=== PATIENT | female | born 1945 | race Caucasian/White ===

== ENCOUNTER 2016-06-09 16:38 | Inpatient (IN) | payer MEDICARE ==
[2016-06-09] VITALS (9 sets, daily range): BP systolic 114–135; BP diastolic 57–70; PULSE 95–136; RESP 10–16; TEMP 97–97.4; O2SAT 100
[~2016-06-09] VITALS: Ht 165.1 cm; Wt 90.5 kg
[2016-06-09] MEDS ORDERED: SODIUM CHLOR 0.9% 1000 ML INJ 1,000 ML IV ONE ×3 (17:00)
[2016-06-09] MEDS ORDERED: methylPREDNISolone SOD SUCC 125 MG/2 ML VIAL IV ONE (17:00)
[2016-06-09] MEDS ORDERED: SODIUM CHLORIDE 0.9% FLUSH 5 ML FLUSH IVF PRN ×2 (17:00→19:15)
[2016-06-09] MEDS ORDERED: AZITHROMYCIN INJ 500 MG in SODIUM CHLOR 0.9% 250 ML INJ 250 ML IV ONE (17:00)
[2016-06-09] MEDS ORDERED: cefTRIAXone INJ 2,000 MG in SODIUM CHLORIDE 0.9% INJ 100 ML IV ONE (17:00)
[2016-06-09] MEDS: RESP: ALBUTEROL 2.5 MG/IPRATROPIUM 0.5 MG NEB (SCH) INH ×2 (17:16→18:03)
--- NOTE | 2016-06-09 17:23 | RADHPO ---
EXAM DATE/TIME: 06/09/2016 16:54 [facility] COMPARISON: No previous studies available for comparison. INDICATIONS : ET tube placement. MEDICAL HISTORY : None. SURGICAL HISTORY : None. ENCOUNTER: Initial ACUITY: 1 day PAIN SCORE: Non-responsive. LOCATION: Bilateral upper chest FINDINGS: There is a large right pneumothorax. The heart appears shifted to the left although the patient is mi ldly rotated towards the left. The patient is intubated with ET tube in good position. There is areas of increased density like a related to calcium in the mid and lower midline chest. Clips are seen in the right axillary region. CONCLUSION: Large right pneumothorax. This information was relayed to by telephone. Gwyn Roque MD on June 09, 2016 at 17:17 Board Certified Radiologist. This report was verified electronically.
[2016-06-09] MEDS ORDERED: PROPOFOL 1000 MG/100 ML INJ 100 ML ONE (17:32)
[2016-06-09] MEDS ORDERED: ETOMIDATE 20 MG/10 ML VIAL IV PUSH ONE (17:45)
[2016-06-09] MEDS ORDERED: PROPOFOL 1000 MG/100 ML BTL IV PRN (17:45)
[2016-06-09] MEDS ORDERED: LIDOCAINE 1%/EPINEPHrine 1:100,000 SOLN 20 ML VIAL INFIL ONE (17:45)
--- NOTE | 2016-06-09 18:13 | PD ---
HPI . Respiratory distress Chief Complaint: Respiratory Distress Time Seen by Provider: 16:47 Travel History International Travel<30 days: No Contact w/Intl Traveler<30days: No Traveled to known affect area: No History of Present Illness HPI The patient is unconscious and unable to give any history. She reports that she was awake and alert on their arrival on the scene. She reported some cold symptoms with a productive cough. She had the acute onset of respiratory distress about an hour prior to calling 911. EMS reports that she initially was "very tight." They gave her a neb. Patient started to give her another neb when she became unresponsive. They had also tried CPAP before she became unresponsive. They then commenced to bagging. PFSH Past Medical History Cancer: Yes (CANCER) COPD: Yes Hypertension: Yes Immunizations Current: Yes Tetanus Vaccination: Unknown : 1 Para: 1 Past Surgical History Hysterectomy: Yes (CERVICAL CA) Thoracic Surgery: Yes (CHEST TUBES) Social History Alcohol Use: No Tobacco Use: No Substance Use: No Allergies-Medications (Allergen,Severity, Reaction): Coded Allergies: UNOBTAINABLE (Unverified , 06/09/16) intubated Review of Systems ROS Limitations: Altered Mental Status, Unresponsive Physical Exam Narrative GENERAL: Unconscious patient with minimal respiratory effort. SKIN: Warm and dry. She did have some changes of the right breast consistent with previous partial mastectomy. She also has a scar on the right chest wall consistent with previous chest tube. HEAD: Atraumatic. Normocephalic. EYES: Pupils equal and round. Pupils pinpoint. ENT: No nasal bleeding or discharge. Mucous membranes pink and moist. NECK: Trachea midline. Neck seems supple. CARDIOVASCULAR: Regular rate and rhythm. Heart had a sinus tachycardia at about 1:30. RESPIRATORY: Lungs are very tight with decreased air movement. GASTROINTESTINAL: Abdomen soft, non-tender, nondistended. MUSCULOSKELETAL: No obvious deformities. No edema. NEUROLOGICAL: Eyes are closed. No verbal response. She does localize pain. PSYCHIATRIC: Unable to assess Data Data Last Documented VS Vital Signs Date Time Temp Pulse Resp B/P Pulse Ox O2 Delivery O2 Flow Rate FiO2 06/09/16 18:40 101 16 135/70 100 Ventilator 06/09/16 18:38 45 06/09/16 17:10 15 06/09/16 16:54 97.4 Orders Electrocardiogram (06/09/16 16:48) Complete Blood Count With Diff (3/13/17 16:48) Comprehensive Metabolic Panel (06/09/16 16:48) Lactic Acid Sepsis Protocol (06/09/16 16:48) Urinalysis - C+S If Indicated (06/09/16 16:48) Blood Culture (06/09/16 16:48) Sputum Culture And Gram Stain (06/09/16 16:48) Chest, Single Ap (06/09/16 16:48) Arterial Blood Gas (Abg) (06/09/16 16:48) Ecg Monitoring (06/09/16 16:48) Iv Access Insert/Monitor (06/09/16 16:48) Oximetry (06/09/16 16:48) Oxygen Administration (06/09/16 16:48) Sodium Chloride 0.9% Flush (Ns Flush) (06/09/16 17:00) Ceftriaxone Inj (Rocephin Inj) (06/09/16 17:00) Azithromycin Inj (Zithromax Inj) (06/09/16 17:00) Methylprednisolone So Succ Inj (Solumedr (06/09/16 17:00) Sodium Chlor 0.9% 1000 Ml Inj (Ns 1000 M (06/09/16 17:00) Sodium Chlor 0.9% 1000 Ml Inj (Ns 1000 M (06/09/16 17:00) Sodium Chlor 0.9% 1000 Ml Inj (Ns 1000 M (06/09/16 17:00) Albuterol-Ipratropium Neb (Duoneb Neb) (06/09/16 17:15) Propofol 1000 Mg/100 Ml Inj (Diprivan 10 (06/09/16 17:32) Lidocai-Epi 1%-1:100,000 Inj (Xylocaine- (06/09/16 17:45) Propofol 1000 Mg/100 Ml Inj (Diprivan 10 (06/09/16 17:45) Etomidate Inj (Amidate Inj) (06/09/16 17:45) Chest, Single Ap (06/09/16 ) Urinary Catheter Management [id number] (06/09/16 18:46) Admit Order (Ed Use Only) (06/09/16 18:47) Labs Laboratory Tests Test 06/09/16 06/09/16 17:00 18:22 White Blood Count 14.2 TH/MM3 Red Blood Count 4.48 MIL/MM3 Hemoglobin 11.5 GM/DL Hematocrit 35.6 % Mean Corpuscular Volume 79.4 FL Mean Corpuscular Hemoglobin 25.7 PG Mean Corpuscular Hemoglobin 32.3 % Concent Red Cell Distribution Width 14.3 % Platelet Count 349 TH/MM3 Mean Platelet Volume 8.4 FL Neutrophils (%) (Auto) 59.2 % Lymphocytes (%) (Auto) 27.9 % Monocytes (%) (Auto) 9.9 % Eosinophils (%) (Auto) 1.9 % Basophils (%) (Auto) 1.1 % Neutrophils # (Auto) 8.3 TH/MM3 Lymphocytes # (Auto) 4.0 TH/MM3 Monocytes # (Auto) 1.4 TH/MM3 Eosinophils # (Auto) 0.3 TH/MM3 Basophils # (Auto) 0.2 TH/MM3 CBC Comment DIFF FINAL Differential Comment Urine Color STRAW Urine Turbidity CLEAR Urine pH 6.0 Urine Specific [place] 1.008 Urine Protein 30 mg/dL Urine Glucose (UA) NEG mg/dL Urine Ketones NEG mg/dL Urine Occult Blood NEG Urine Nitrite NEG Urine Bilirubin NEG Urine Leukocyte Esterase NEG Urine RBC 0-3 /hpf Urine WBC 0-2 /hpf Urine Squamous Epithelial 0-5 /hpf Cells Urine Bacteria NONE /hpf Microscopic Urinalysis Comment CULT NOT INDICATED Sodium Level 139 MEQ/L Potassium Level 3.3 MEQ/L Chloride Level 98 MEQ/L Carbon Dioxide Level 35.3 MEQ/L Anion Gap 6 MEQ/L Blood Urea Nitrogen 14 MG/DL Creatinine 1.20 MG/DL Estimat Glomerular Filtration 44 ML/MIN Rate Random Glucose 211 MG/DL Calcium Level 8.6 MG/DL Total Bilirubin 0.3 MG/DL Aspartate Amino Transf 39 U/L (AST/SGOT) Alanine Aminotransferase 48 U/L (ALT/SGPT) Alkaline Phosphatase 84 U/L Total Protein 8.5 GM/DL Albumin 3.6 GM/DL Blood Gas Puncture Site LT RADIAL Blood Gas Patient Temperature 98.6 Blood Gas HCO3 30 mmol/L Blood Gas Base Excess 3.3 mmol/L Blood Gas Oxygen Saturation 98 % Arterial Blood pH 7.26 Arterial Blood Partial 70 mmHG Pressure CO2 Arterial Blood Partial 479 mmHG Pressure O2 Arterial Blood Oxygen Content 15.8 Vol % Arterial Blood 1.2 % Carboxyhemoglobin Arterial Blood Methemoglobin 1.2 % Blood Gas Hemoglobin 10.6 G/DL Oxygen Delivery Device VENTILATOR Blood Gas Ventilator Setting PRVC/AC Blood Gas Inspired Oxygen 100 % MDM Medical Decision Making Medical Screen Exam Complete: Yes Emergency Medical Condition: Yes Differential Diagnosis Differential diagnosis includes COPD exacerbation, pneumonia, bronchitis Narrative Course Patient presented to the emergency department respiratory distress. The patient was intubated emergently. A septic workup was initiated. Chest x-ray following the intubation shows a large right-sided pneumothorax. A chest tube was subsequently inserted. Critical Care Narrative Aggregate critical care time was 60 minutes. Time to perform other separately billable procedures was not included in the critical care time. My time did not include minutes spent treating any other patients simultaneously or on activities that did not directly contribute to the patient's treatment. The services I provided to this patient were to treat and/or prevent clinically significant deterioration due to respiratory failure I provided critical care services requiring my management, as noted below: Chart data review, documentation time, medication orders and management, vital sign assessments/reviewing monitor data, ordering and reviewing lab tests, ordering and interpreting/reviewing x-rays and diagnostic studies, care of the patient and discussion of the patient with the admitting physicians Procedures Procedure Narrative This was an emergent intubation. There was no discussion regarding risks and benefits. INTUBATION: The patient was put in optimal position for the procedure. Rapid sequence intubation was initiated by me using 20 milligrams of etomidate IV. The patient was intubated with a 7.5 cuffed endotracheal tube. Tube placement was confirmed by visualization of the tube and balloon passing through the cords, capnometry and subsequent chest x-ray. Breath sounds were equal and well aerated bilaterally postintubation. No breath sounds over stomach. Patient tolerated procedure well. CHEST TUBE THORACOSTOMY: The 28 chest was prepped with Betadine and sterilely draped. The area of the fifth intercostal interspace was infiltrated with 1% lidocaine plain. A 1 centimeter incision was made with a scalpel at the fifth intercostal space. Blunt dissection to the fourth intercostal interspace performed and the pleura was punctured with immediate schneider of air. Finger was inserted in the space and thoracostomy tube was placed, directed posteriorly and superiorly. Tube draining well. The thoracostomy tube was secured with suture. Sterile seal dressing placed. Patient tolerated procedure well. Physician Communication Physician Communication Dr. Briones will admit the patient. Diagnosis Primary Impression: Respiratory failure Qualified Code: J96.00 - Acute respiratory failure, unspecified whether with hypoxia or hypercapnia Additional Impression: Pneumothorax, right Admitting Information Admitting Physician Requests: Admit Condition: Serious Jacy Mascorro MD Jun 09, 2016 18:13
[2016-06-09 18:21] LABS: BLOOD, URINE NEG (NEG); GLUCOSE,URINE NEG (NEG); KETONE, URINE NEG (NEG); NITRITE,URINE NEG (NEG)
[2016-06-09 18:22] LABS: AUTOMATED NEUTROPHIL # 8.3 TH/MM3 (1.8-7.7); BASOPHIL # 0.2 TH/MM3 (0-0.2); BASOPHIL % 1.1 % (0.0-2.0); EOSINOPHIL # 0.3 TH/MM3 (0-0.4); EOSINOPHIL % 1.9 % (0.0-4.0); HEMATOCRIT 35.6 % (35.0-46.0); HEMO FLAGS DIFF FINAL; LYMPH % 27.9 % (9.0-44.0); MEAN CELL VOLUME 79.4 FL (80.0-100.0); MEAN CORPUSCULAR HEMOGLOBIN 25.7 PG (27.0-34.0); MEAN CORPUSCULAR HGB CONC 32.3 % (32.0-36.0); MONO % 9.9 % (0.0-8.0); NEUT % 59.2 % (16.0-70.0); PLATELET COUNT 349 TH/MM3 (150-450); RED BLOOD COUNT 4.48 MIL/MM3 (4.00-5.30); RED CELL DISTRIBUTION WIDTH 14.3 % (11.6-17.2); WHITE BLOOD COUNT 14.2 TH/MM3 (4.0-11.0)
[2016-06-09 18:26] LABS: RBC, URINE 0-3 /hpf (0-3); SQUAMOUS EPITHELIAL CELL URINE 0-5 /hpf (0-5); URINE COLOR STRAW (YELLW/STRAW); WBC, URINE 0-2 /hpf (0-5)
[2016-06-09 18:27] LABS: COMMENT (UR) CULT NOT INDICATED; CULTURE IF INDICATED CULT NOT INDICATED
[2016-06-09 18:28] LABS: CHLORIDE 98 MEQ/L (98-107); SODIUM (NA) 139 MEQ/L (136-145)
[2016-06-09 18:29] LABS: POTASSIUM 3.3 MEQ/L (3.5-5.1)
[2016-06-09 18:30] LABS: BLOOD GAS BASE EXCESS 3.3 mmol/L (-2-2); BLOOD GAS CARBOXYHEMOGLOBIN 1.2 % (0-4); BLOOD GAS HCO3 30 mmol/L (22-26); BLOOD GAS METHEMOGLOBIN 1.2 % (0-2); BLOOD GAS O2 HGB SATURATION 98 % (90-100); BLOOD GAS OXYGEN CONTENT 15.8 Vol % (12.0-20.0); BLOOD GAS PCO2 70 mmHG (38-42); BLOOD GAS PO2 479 mmHG (61-120); BLOOD GAS TOTAL HGB 10.6 G/DL (12.0-16.0); CRITICAL VALUE YES; OXYGEN DEVICE VENTILATOR; TEMP CORR TO 98.6
[2016-06-09 18:31] LABS: DRAW SITE LT RADIAL; FIO2 100 %; NUMBER OF ARTERIAL PUNCTURES 1; STAT YES; ULNAR PULSE PRESENT; VENT SETTINGS PRVC/AC
[2016-06-09 18:33] LABS: ANION GAP 6 MEQ/L (5-15); BICARBONATE 35.3 MEQ/L (21.0-32.0); BLOOD UREA NITROGEN 14 MG/DL (7-18)
[2016-06-09 18:36] LABS: ALT (GPT) 48 U/L (10-53); AST (GOT) 39 U/L (15-37)
[2016-06-09 18:37] LABS: GLOMERULAR FILTRATION RATE 44 ML/MIN (>89)
[2016-06-09 18:38] LABS: TOTAL BILIRUBIN ADULT 0.3 MG/DL (0.2-1.0)
[2016-06-09 18:39] LABS: ALKALINE PHOSPHATASE 84 U/L (45-117)
--- NOTE | 2016-06-09 18:59 | RADHPO ---
EXAM DATE/TIME: 06/09/2016 18:45 [facility] COMPARISON: CHEST SINGLE AP, June 09, 2016, 16:54. INDICATIONS : Right chest tube placement. MEDICAL HISTORY : None. SURGICAL HISTORY : None. ENCOUNTER: Subsequent ACUITY: 1 day PAIN SCORE: Non-responsive. LOCATION: Bilateral upper chest FINDINGS: Status post placement of a right-sided chest tube. The previously noted pneumothorax has resolved. Th e ET tube remains in place. Left lung remains clear and well-aerated. There is subcutaneous emphysema along the right chest wall. The heart size is stable. No pleural effusions. CONCLUSION: Status post placement of right-sided chest tube. No pneumothorax. Eleazar Hitchcock MD on June 09, 2016 at 18:57 Board Certified Radiologist. This report was verified electronically.
[2016-06-09] MEDS ORDERED: ACETAMINOPHEN 325 MG TAB PO PRN (19:15)
[2016-06-09] MEDS ORDERED: MISCELLANEOUS NURSING INFORMATION XX SCH (19:15)
[2016-06-09] MEDS ORDERED: RESP: ALBUTEROL 2.5 MG/IPRATROPIUM 0.5 MG NEB (PRN) INH (19:15)
[2016-06-09] MEDS ORDERED: PROPOFOL 1000 MG/100 ML INJ 100 ML IV SCH (19:15)
[2016-06-09] MEDS ORDERED: CHLORHEXIDINE GLUCONATE 2 % 1 PACK (2 CLOTHS) TOP PRN (19:15)
[2016-06-09] MEDS: CHLORHEXIDINE 0.12% (ORAL KIT) 15 ML CUP MT SCH (20:00)
[2016-06-09 20:13] LABS: BLOOD, URINE NEG (NEG); GLUCOSE,URINE NEG (NEG); KETONE, URINE NEG (NEG); NITRITE,URINE NEG (NEG); PH, URINE 6.5 (5.0-8.5)
[2016-06-09] MEDS: RESP: ALBUTEROL 2.5 MG/IPRATROPIUM 0.5 MG NEB (SCH) NEB (20:14)
[2016-06-09 20:27] LABS: URINE COLOR STRAW (YELLW/STRAW)
[2016-06-09 20:28] LABS: RBC, URINE 0-3 /hpf (0-3); SQUAMOUS EPITHELIAL CELL URINE 0-5 /hpf (0-5); WBC, URINE 0-2 /hpf (0-5)
--- NOTE | 2016-06-09 20:58 | HHI.HP ---
HPI Service Critical Care Medicine Primary Care Physician Non-Staff Admission Diagnosis respiratory failure, right pneumothorax Diagnosis: Chief Complaint: Respiratory distress Travel History International Travel<30 Days: No Contact w/Intl Traveler <30 Da: No Traveled to Known Affected Are: No Sepsis Criteria SIRS Criteria (2 or more): Heart rate over 90, RR > 20 or PaCO2 < 32 Sepsis Criteria (SIRS+source): Infect source susp/known Criteria Outcome: Meets sepsis criteria History of Present Illness History of Present Illness HPI 31-year-old female who was brought to the ER with shortness of breath. She had reportedly been having some cold symptoms and a productive cough for a day. She developed acute onset of respiratory distress for an hour prior to calling 911. EMS reported that she was 'very tight', they gave her a nebulizer treatment 2 however and she became unresponsive. She was brought to the ER while being bagged and following arrival in the ER was emergently intubated and placed on mechanical ventilation by ER physician. Postintubation chest x-ray revealed a large right pneumothorax and she underwent emergent right sided chest tube placement following which her respiratory status improved and she was maintaining O2 sats on mechanical ventilation. She was tachycardic and received fluid bolus in the ER. Cultures were sent and she was started on empiric antibiotics with Rocephin and Zithromax. She also received Solu-Medrol IV. Patient was accepted for admission by critical care medicine service. When I evaluated the patient she was sedated with propofol, orally intubated on mechanical ventilation. History was obtained by reviewing records and discussion with ER physician. At the time of my evaluation she had a right sided chest tube in place with no air leak noted. History PFSH Past Medical History Cancer: Yes (CANCER) COPD: Yes Hypertension: Yes Immunizations Current: Yes Tetanus Vaccination: Unknown : 1 Para: 1 Past Surgical History Hysterectomy: Yes (CERVICAL CA) Thoracic Surgery: Yes (CHEST TUBES) Social History Alcohol Use: No Tobacco Use: No Substance Use: No Allergies-Medications Allergies-Medications (Allergen,Severity, Reaction): Coded Allergies: UNOBTAINABLE (Unverified , 06/09/16) intubated Review of Systems ROS Limitations: Intubated Physical Exam Vital Signs Vital Signs Date Time Temp Pulse Resp B/P Pulse Ox O2 Delivery O2 Flow Rate FiO2 06/09/16 20:15 100 45 06/09/16 18:40 101 16 135/70 100 Ventilator 06/09/16 18:38 100 45 06/09/16 17:10 12 100 06/09/16 17:10 100 Bag Valve 15 06/09/16 17:03 136 10 100 Bag Valve 15 06/09/16 16:54 97.4 136 10 124/69 100 06/09/16 16:45 100 100 Physical Exam HEENT/ Neuro: Sedated, orally intubated, no pallor or icterus, tongue moist Neck: No JVD Chest/Pulm: on mech vent, good air entry bilaterally, no wheezing or crackles CVS: S1-S2 regular, no murmur GI/abdomen: soft, nontender, bowel sounds sluggish Extremities: warm bilaterally, no edema Laboratory Laboratory Tests Test 06/09/16 06/09/16 06/09/16 06/09/16 17:00 18:22 19:30 20:00 White Blood Count 14.2 Red Blood Count 4.48 Hemoglobin 11.5 Hematocrit 35.6 Mean Corpuscular Volume 79.4 Mean Corpuscular Hemoglobin 25.7 Mean Corpuscular Hemoglobin 32.3 Concent Red Cell Distribution Width 14.3 Platelet Count 349 Mean Platelet Volume 8.4 Neutrophils (%) (Auto) 59.2 Lymphocytes (%) (Auto) 27.9 Monocytes (%) (Auto) 9.9 Eosinophils (%) (Auto) 1.9 Basophils (%) (Auto) 1.1 Neutrophils # (Auto) 8.3 Lymphocytes # (Auto) 4.0 Monocytes # (Auto) 1.4 Eosinophils # (Auto) 0.3 Basophils # (Auto) 0.2 CBC Comment DIFF FINAL Differential Comment Urine Color STRAW STRAW Urine Turbidity CLEAR CLEAR Urine pH 6.0 6.5 Urine Specific [place] 1.008 1.010 Urine Protein 30 NEG Urine Glucose (UA) NEG NEG Urine Ketones NEG NEG Urine Occult Blood NEG NEG Urine Nitrite NEG NEG Urine Bilirubin NEG NEG Urine Leukocyte Esterase NEG NEG Urine RBC 0-3 0-3 Urine WBC 0-2 0-2 Urine Squamous Epithelial 0-5 0-5 Cells Urine Bacteria NONE NONE Microscopic Urinalysis Comment CULT NOT INDICATED Sodium Level 139 Potassium Level 3.3 Chloride Level 98 Carbon Dioxide Level 35.3 Anion Gap 6 Blood Urea Nitrogen 14 Creatinine 1.20 Estimat Glomerular Filtration 44 Rate Random Glucose 211 Calcium Level 8.6 Total Bilirubin 0.3 Aspartate Amino Transf 39 (AST/SGOT) Alanine Aminotransferase 48 (ALT/SGPT) Alkaline Phosphatase 84 Total Protein 8.5 Albumin 3.6 Blood Gas Puncture Site LT RADIAL Blood Gas Patient Temperature 98.6 Blood Gas HCO3 30 Blood Gas Base Excess 3.3 Blood Gas Oxygen Saturation 98 Arterial Blood pH 7.26 Arterial Blood Partial 70 Pressure CO2 Arterial Blood Partial 479 Pressure O2 Arterial Blood Oxygen Content 15.8 Arterial Blood 1.2 Carboxyhemoglobin Arterial Blood Methemoglobin 1.2 Blood Gas Hemoglobin 10.6 Oxygen Delivery Device VENTILATOR Blood Gas Ventilator Setting PRVC/AC Blood Gas Inspired Oxygen 100 Lactic Acid Level 1.6 Total Creatine Kinase 162 Date/Time Procedure Status Source Growth 06/09/16 20:00 Legionella Antigen Received Urine Catheterized Urine Pending 06/09/16 20:00 Streptococcus pneumoniae Antigen (M Received Urine Catheterized Urine Pending 06/09/16 20:00 Influenza Types A,B Antigen (SAMY) - Final Complete Nasal Washing NEGATIVE FOR FLU A AND B ANTIGEN.... 06/09/16 18:10 Gram Stain Received Sputum Endotracheal Pending 06/09/16 18:10 Sputum Culture Received Sputum Endotracheal Pending 06/09/16 17:20 Aerobic Blood Culture Received Blood Peripheral Pending 06/09/16 17:20 Anaerobic Blood Culture Received Blood Peripheral Pending Result Diagram: 06/09/16 1700 06/09/16 1700 Imaging CXR 06/09 immediate postintubation (personally reviewed): ET tube above greg, large right pneumothorax chest x-ray 06/09 post chest tube placement (personally reviewed): ET tube above greg, right sided chest tube in place, complete reexpansion of right lung with no pneumothorax noted, no obvious infiltrates, hyperinflated lung jolley Septic Shock Reassessment Heart: Regular rate and rhythm Lungs: Clear Skin: Warm Peripheral Pulses: Bounding Right Radial Capillary Refill: Brisk Assessment and Plan Assessment and Plan 71-year-old female with: Acute respiratory failure on mechanical ventilation COPD exacerbation Sepsis Suspected respiratory tract infection Right pneumothorax status post chest tube placement Positive troponin Plan: Neuro: Sedation with propofol, daily sedation vacation. Follow neuro status. Cardiovascular: IV hydration, serial cardiac enzymes. Elevated troponin noted. We'll initiate aspirin 325 mg via OG tube now and then 81 mg daily. Consult cardiology and obtain 2-D echo in a.m. Pulmonary: Continue mechanical ventilation. Right sided chest tube in place with no air leak currently. Solu-Medrol, bronchodilators initiated. Pulmonary consult for COPD exacerbation and right pneumothorax. We will initiate daily C Pap trials to decide extubation in a.m. ID: : Follow-up cultures. Check urine for strep pneumo and Legionella antigen. Nasal washings for influenza A and B pending. Empiric antibiotic coverage with IV Rocephin/Zithromax. Endocrine: SSI for glycemic control Heme: Follow CBC Prophylaxis: Pepcid/SCDs/Lovenox. Discussed with ER physician. Condition critical Time spent on critical care excluding procedures 60 minutes. Russ Jameson MD Jun 09, 2016 20:58
[2016-06-09] MEDS ORDERED: DEXTROSE 50% IN WATER 50 ML VIAL(D50) IV PRN (21:00)
[2016-06-09] MEDS ORDERED: MAGNESIUM OXIDE 400 MG TAB PO PRN (21:00)
[2016-06-09] MEDS ORDERED: MAGNESIUM SULFATE INJ 2 GM in SODIUM CHLORIDE 0.9% INJ 96 ML IV PRN (21:00)
[2016-06-09] MEDS ORDERED: SODIUM PHOSPHATE INJ 30 MMOL in SODIUM CHLOR 0.9% 250 ML INJ 240 ML IV PRN (21:00)
[2016-06-09] MEDS ORDERED: POTASSIUM PHOSPHATE MONOBASIC 500 MG TAB PO/TUBE PRN (21:00)
[2016-06-09] MEDS ORDERED: POTASSIUM CHLOR 20 MEQ PREMIX 100 ML IV PRN (21:00)
[2016-06-09] MEDS ORDERED: FAMOTIDINE 20 MG TAB TUBE SCH (21:00)
[2016-06-09] MEDS ORDERED: GLUCAGON 1 MG/ML VIAL IM/SQ PRN (21:00)
[2016-06-09] MEDS: INSULIN ASPART SUPPLEMENTAL SCALE SQ SCH (21:00)
[2016-06-09] MEDS: SODIUM CHLORIDE 0.9% FLUSH 5 ML FLUSH IVF SCH (21:00)
[2016-06-09] MEDS ORDERED: POTASSIUM PHOSPHATE INJ 30 MMOL in SODIUM CHLOR 0.9% 250 ML INJ 250 ML IV PRN (21:00)
[2016-06-09] MEDS ORDERED: POTASSIUM PHOSPHATE MONOBASIC 500 MG TAB PO PRN (21:00)
[2016-06-09] MEDS ORDERED: POTASSIUM CHLOR 40 MEQ PREMIX 100 ML IV PRN ×2 (21:00)
[2016-06-09] MEDS ORDERED: MAGNESIUM SULFATE INJ 4 GM in SODIUM CHLORIDE 0.9% INJ 92 ML IV PRN (21:00)
[2016-06-09] MEDS: SODIUM CHLOR 0.9% 1000 ML INJ 1,000 ML IV SCH ×2 (21:05→22:27)
[2016-06-09] MEDS ORDERED: ASPIRIN 325 MG TAB TUBE ONE (21:15)
[2016-06-09 21:19] LABS: CREATINE KINASE 117 U/L (26-192)
[2016-06-09 21:43] LABS: CKMB 2.1 NG/ML (0.5-3.6)
[2016-06-09] MEDS: ENOXAPARIN SODIUM 40 MG/0.4 ML SYRINGE SQ SCH (22:27)
[2016-06-09] MEDS: methylPREDNISolone SOD SUCC 125 MG/2 ML VIAL IV PUSH SCH (22:27)
[2016-06-09] MEDS: POTASSIUM CHLOR 20 MEQ PREMIX 100 ML IV PRN (23:45)
[2016-06-09 23:58] LABS: BLOOD GAS BASE EXCESS 2.9 mmol/L (-2-2); BLOOD GAS CARBOXYHEMOGLOBIN 1.5 % (0-4); BLOOD GAS HCO3 28 mmol/L (22-26); BLOOD GAS O2 HGB SATURATION 97 % (90-100); BLOOD GAS OXYGEN CONTENT 14.5 Vol % (12.0-20.0); BLOOD GAS PCO2 53 mmHG (38-42); BLOOD GAS PO2 173 mmHG (61-120); BLOOD GAS TOTAL HGB 10.4 G/DL (12.0-16.0); TEMP CORR TO 98.6
[2016-06-09 23:59] LABS: CRITICAL VALUE YES; DRAW SITE RT RADIAL; FIO2 45 %; NUMBER OF ARTERIAL PUNCTURES 1; OXYGEN DEVICE VENTILATOR; STAT NO; ULNAR PULSE Y; VENT SETTINGS AC 12/550/5PEEP
[2016-06-10] VITALS (16 sets, daily range): BP systolic 110–134; BP diastolic 58–80; PULSE 87–122; RESP 12–18; TEMP 97.1–97.7; O2SAT 95–100
[2016-06-10 01:31] LABS: CKMB 9.8 NG/ML (0.5-3.6)
[2016-06-10] MEDS: POTASSIUM CHLOR 20 MEQ PREMIX 100 ML IV PRN (02:15)
[2016-06-10] MEDS: RESP: ALBUTEROL 2.5 MG/IPRATROPIUM 0.5 MG NEB (SCH) NEB ×4 (02:29→20:40)
[2016-06-10] MEDS: CHLORHEXIDINE GLUCONATE 2 % 1 PACK (2 CLOTHS) TOP SCH (04:00)
[2016-06-10] MEDS: INSULIN ASPART SUPPLEMENTAL SCALE SQ SCH ×5 (05:22→23:00)
[2016-06-10] MEDS: methylPREDNISolone SOD SUCC 125 MG/2 ML VIAL IV PUSH SCH ×3 (05:23→22:53)
[2016-06-10 06:23] LABS: AUTOMATED NEUTROPHIL # 10.7 TH/MM3 (1.8-7.7); BASOPHIL # 0.1 TH/MM3 (0-0.2); BASOPHIL % 0.6 % (0.0-2.0); HEMATOCRIT 33.2 % (35.0-46.0); HEMO FLAGS DIFF FINAL; LYMPH % 4.5 % (9.0-44.0); LYMPHOCYTE # 0.5 TH/MM3 (1.0-4.8); MEAN CELL VOLUME 79.3 FL (80.0-100.0); MEAN CORPUSCULAR HEMOGLOBIN 25.7 PG (27.0-34.0); MEAN CORPUSCULAR HGB CONC 32.4 % (32.0-36.0); MONO % 0.8 % (0.0-8.0); NEUT % 94.1 % (16.0-70.0); PLATELET COUNT 257 TH/MM3 (150-450); RED BLOOD COUNT 4.18 MIL/MM3 (4.00-5.30); RED CELL DISTRIBUTION WIDTH 13.9 % (11.6-17.2); WHITE BLOOD COUNT 11.4 TH/MM3 (4.0-11.0)
[2016-06-10 06:27] LABS: CHLORIDE 102 MEQ/L (98-107); POTASSIUM 3.5 MEQ/L (3.5-5.1); SODIUM (NA) 139 MEQ/L (136-145)
--- NOTE | 2016-06-10 06:46 | HHI.CCPN ---
Subjective Remarks/Hospital Course Hospital Course: 31-year-old female who was brought to the ER with shortness of breath. She had reportedly been having some cold symptoms and a productive cough for a day. She developed acute onset of respiratory distress for an hour prior to calling 911. EMS reported that she was 'very tight', they gave her a nebulizer treatment 2 however and she became unresponsive. She was brought to the ER while being bagged and following arrival in the ER was emergently intubated and placed on mechanical ventilation by ER physician. Postintubation chest x-ray revealed a large right pneumothorax and she underwent emergent right sided chest tube placement following which her respiratory status improved and she was maintaining O2 sats on mechanical ventilation. She was tachycardic and received fluid bolus in the ER. Cultures were sent and she was started on empiric antibiotics with Rocephin and Zithromax. She also received Solu-Medrol IV. Patient was accepted for admission by critical care medicine service. When I evaluated the patient she was sedated with propofol, orally intubated on mechanical ventilation. History was obtained by reviewing records and discussion with ER physician. At the time of my evaluation she had a right sided chest tube in place with no air leak noted. Subjective: 06/10: awake this morning, on minimal sedation. no air leak this morning. no chest tube output. spo2 100% on fio2 35%. denies pain this morning. says [place] is from out of state up [place]. difficult to get full history due to her being intubated. denies chest pain. Dr. Tirado at bedside with me during my exam. Objective Vital Signs Date Time Temp Pulse Resp B/P Pulse Ox O2 Delivery O2 Flow Rate FiO2 06/10/16 05:23 90 114/68 100 06/10/16 04:30 97.7 12 Ventilator 35 06/09/16 17:10 15 Intake and Output 06/09/16 06/09/16 06/10/16 08:00 16:00 00:00 Intake Total 3000 ml Output Total 1000 ml Balance 2000 ml Result Diagram: 06/10/16 0600 06/10/16 0600 Other Results Microbiology Date/Time Procedure Status Source Growth 06/09/16 20:00 Influenza Types A,B Antigen (SAMY) - Final Complete Nasal Washing NEGATIVE FOR FLU A AND B ANTIGEN.... Laboratory Tests Test 06/09/16 06/09/16 18:22 23:47 Blood Gas Puncture Site LT RADIAL RT RADIAL Blood Gas Patient Temperature 98.6 98.6 Blood Gas HCO3 30 mmol/L 28 mmol/L (22-26) (22-26) Blood Gas Base Excess 3.3 mmol/L 2.9 mmol/L (-2-2) (-2-2) Blood Gas Oxygen Saturation 98 % (90-100) 97 % (90-100) Arterial Blood pH 7.26 7.35 (7.380-7.420) (7.380-7.420) Arterial Blood Partial 70 mmHG (38-42) 53 mmHG (38-42) Pressure CO2 Arterial Blood Partial 479 mmHG 173 mmHG Pressure O2 (61-120) (61-120) Arterial Blood Oxygen Content 15.8 Vol % 14.5 Vol % (12.0-20.0) (12.0-20.0) Arterial Blood 1.2 % (0-4) 1.5 % (0-4) Carboxyhemoglobin Arterial Blood Methemoglobin 1.2 % (0-2) 1.0 % (0-2) Blood Gas Hemoglobin 10.6 G/DL 10.4 G/DL (12.0-16.0) (12.0-16.0) Oxygen Delivery Device VENTILATOR VENTILATOR Blood Gas Ventilator Setting [facility]/ AC 12/550/5PEEP Blood Gas Inspired Oxygen 100 % 45 % Imaging CXR 06/09 immediate postintubation (personally reviewed): ET tube above greg, large right pneumothorax chest x-ray 06/09 post chest tube placement (personally reviewed): ET tube above greg, right sided chest tube in place, complete reexpansion of right lung with no pneumothorax noted, no obvious infiltrates, hyperinflated lung jolley Objective Remarks HEENT/ Neuro: Sedated, orally intubated, no pallor or icterus, tongue moist Neck: No JVD Chest/Pulm: on mech vent, good air entry bilaterally, significant ronchi with intermittent expiratory wheezes. CVS: normal rate, regular rhythm, rate in 90s on my exam. no appreciable murmurs. GI/abdomen: soft, nontender, nondistended, no guarding. Extremities: warm bilaterally, no edema, distal pulses 2+ Neuro: RASS -1, CAM -. follows commands. A/P Assessment and Plan Assessment: This is a 71yF with history of o2 dependent COPD on 3L o2 at home who has a history of prior right breast CA s/p mastectomy and prior right-sided pneumothorax requiring chest tube placement, who now presents with acute hypoxic and hypercarbic respiratory failure requiring emergent intubation and chest tube placement for recurrent right-sided pneumothorax. Her lung is re- expanded and her respiratory failure is improving. we will work towards SBT and weaning from mechanical ventilation. Certainly, given her o2 dependent copd, she may be difficult to separate from mechanical ventilation. In terms of her recurrent pneumothorax, we will hold off on high-resolution CT chest since she does not currently have an air leak, but would consider possible CT chest in the future to ensure she does not have a structural defect leading to recurrent pneumothoraces. Plan: 1. Right-sided pneumothorax -- continue CT to suction -- CXR now to ensure lung remains inflated -- AM CXR 2. Type II Respiratory Failure -- SBT this morning -- will attempt to wean to extubate. may require bridge to BiPAP. may be difficult to wean due to her severe COPD. 3. COPD Exacerbation -- continue steroids -- frequent nebs 4. Suspected respiratory tract infection -- continue Rocephin and Azithromycin -- f/u blood and sputum cultures 5. Type II NSTEMI -- likely secondary to demand ischemia in the setting of hemodynamic and pulmonary instability during acute pneumothorax and respiratory failure. -- trend troponins until downtrending -- continue baby aspirin 81mg daily -- will hold off on heparin drip. this does not clinically appear as ACS, and the patient denies chest pain this morning. -- appreciate cardiology consult -- f/u 2d echo. -- lipid panel. 6. Hyperglycemia of Critical Illness -- SSI 7. SCDs, Lovenox, Pepcid for ppx. Dispo: Still holding in the ED due to no ICU beds. I still think even if she is extubated this morning, she will require close monitoring in the ICU. Alan Chambers MD Jun 10, 2016 06:46
[2016-06-10 06:47] LABS: ALKALINE PHOSPHATASE 76 U/L (45-117); ALT (GPT) 48 U/L (10-53); ANION GAP 10 MEQ/L (5-15); AST (GOT) 44 U/L (15-37); BICARBONATE 27.4 MEQ/L (21.0-32.0); BLOOD UREA NITROGEN 12 MG/DL (7-18); GLOMERULAR FILTRATION RATE 62 ML/MIN (>89); TOTAL BILIRUBIN ADULT 0.3 MG/DL (0.2-1.0)
--- NOTE | 2016-06-10 07:08 | RADHPO ---
EXAM DATE/TIME: 06/10/2016 06:45 [facility] COMPARISON: CHEST SINGLE AP, June 09, 2016, 18:45. INDICATIONS : Pneumothorax. MEDICAL HISTORY : None. SURGICAL HISTORY : None. ENCOUNTER: Subsequent ACUITY: 2 days PAIN SCORE: Non-responsive. LOCATION: Bilateral chest FINDINGS: Chest tube is present on the right side. No definite pneumothorax is seen for technique. Subcutaneous emphysema has not changed. ET tube is present with tip overlapping approximately 3 cm above the medardo na. NG tube is present with tip in barely in the stomach. The lungs are clear without infiltrate, nod ule, or mass. There is no appreciable pleural effusion for technique. Heart and mediastinum are unr emarkable. The rest of the examination has not significantly changed. CONCLUSION: No definite pneumothorax is seen for technique. Abdulaziz Jean MD on June 10, 2016 at 7:05 Board Certified Radiologist. This report was verified electronically.
[2016-06-10 07:27] LABS: BLOOD GAS BASE EXCESS 1.9 mmol/L (-2-2); BLOOD GAS CARBOXYHEMOGLOBIN 1.4 % (0-4); BLOOD GAS HCO3 27 mmol/L (22-26); BLOOD GAS METHEMOGLOBIN 1.3 % (0-2); BLOOD GAS O2 HGB SATURATION 97 % (90-100); BLOOD GAS OXYGEN CONTENT 14.9 Vol % (12.0-20.0); BLOOD GAS PCO2 53 mmHG (38-42); BLOOD GAS PO2 155 mmHG (61-120); BLOOD GAS TOTAL HGB 10.8 G/DL (12.0-16.0); TEMP CORR TO 98.6
[2016-06-10 07:30] LABS: CRITICAL VALUE YES; OXYGEN DEVICE CPAP
[2016-06-10 07:31] LABS: DRAW SITE LT RADIAL; FIO2 40 %; NUMBER OF ARTERIAL PUNCTURES 1; STAT NO; ULNAR PULSE PRESENT; VENT SETTINGS PRESSURE 5/PEEP 5
[2016-06-10] MEDS ORDERED: HYDROmorphone HCL PF 1 MG/ML VIAL IV PUSH PRN (08:15)
[2016-06-10] MEDS: SODIUM CHLORIDE 0.9% FLUSH 5 ML FLUSH IVF SCH ×2 (09:05→22:53)
[2016-06-10] MEDS: ASPIRIN 81 MG CHEW TAB CHEW SCH (10:02)
[2016-06-10] MEDS: ATORVASTATIN 40 MG TAB PO SCH (10:02)
[2016-06-10] MEDS: cefTRIAXone INJ 1,000 MG in SODIUM CHLORIDE 0.9% INJ 100 ML IV SCH (10:03)
[2016-06-10] MEDS ORDERED: MOME17I EACH NARE (10:17)
[2016-06-10] MEDS ORDERED: OMEP20TA PO (10:17)
[2016-06-10] MEDS ORDERED: HYDR50TA3 PO (10:17)
[2016-06-10] MEDS ORDERED: MAGN500T4 PO (10:17)
[2016-06-10] MEDS ORDERED: ADVA250A INH (10:17)
[2016-06-10] MEDS ORDERED: TIOT12.9 INH (10:17)
[2016-06-10] MEDS ORDERED: LEVO.1 PO (10:17)
[2016-06-10] MEDS ORDERED: AMLO5TAB2 PO (10:17)
[2016-06-10] MEDS ORDERED: CLOB0.055 TOPICAL (10:18)
[2016-06-10] MEDS ORDERED: ASPI-110 PO (10:18)
[2016-06-10] MEDS ORDERED: OPCOSOL (10:18)
[2016-06-10] MEDS ORDERED: NIAC500T5 PO (10:18)
[2016-06-10] MEDS: CHLORHEXIDINE 0.12% (ORAL KIT) 15 ML CUP MT SCH ×2 (10:23→20:00)
--- NOTE | 2016-06-10 10:52 | MB ---
cc: TRES PLUNKETT, DATE OF CONSULTATION: 06/10/2016 REASON FOR CONSULTATION: The patient is a 71-year-old white woman I am seeing the emergency room at [facility] for elevated troponin. The patient is intubated but awake and aware trying to get a history from her. PAST MEDICAL HISTORY: The patient has a history of hypertension but denies diabetes, hyperlipidemia or cardiac issues. Apparently she has COPD and on is on 3 liters oxygen chronically. She is visiting from [facility]. She apparently has had a right pneumothorax in the past. Her history otherwise remarkable is for right-sided breast cancer with radiation and chemotherapy with lumpectomy. Apparently, also cervical cancer also although this is unclear. ALLERGIES Unclear. SOCIAL HISTORY: Apparently she is a and does not smoke or drink. FAMILY HISTORY Unclear. REVIEW OF SYSTEMS We can could not get a review of systems. HISTORY: The patient came into the emergency room with some cold symptoms with productive cough and had acute onset of respiratory distress with tightness in her chest. She became unresponsive and bagging was undertaken. The patient had an EKG showing sinus rhythm which was normal. She was emergently intubated. Chest x-ray apparently showed a right-sided pneumothorax and she had a chest tube placed. The patient has stabilized at this point. She was in significant respiratory distress when she came in but this has improved. MEDICATIONS: Medication list from home unclear but present medication list reviewed. RADIOLOGIC: Chest x-ray With right sided chest tube placement. LABORATORY FINDINGS White count mildly elevated. She is mildly anemic with last hematocrit 33.2. Urinalysis negative. Blood gas showed CO2 retention. Apparently she is a CO2 retainer Initial potassium 3.3, creatinine 1.2. Liver functions essentially normal. Subsequent potassium 3.5. Initial lactic acid 1.6, BNP normal at 72. CPKs maximum 207. Her troponins have bumped to 1.91 in 2.38, but she does not have any cardiac symptoms at this point in time. PHYSICAL EXAMINATION: IN GENERAL: On exam she is alert and oriented done but intubated. Afebrile. VITAL SIGNS: Vital signs stable. CHEST: With diffuse rhonchi and mild wheezing. JVD probably normal. PMI normal. CARDIOLOGIC: S1-S2 no murmurs or gallops. ABDOMEN: Benign. EXTREMITIES: Show no cyanosis, clubbing or edema. Pulses carotids without bruits. Radials 2+ make that one to 2+. Femorals not felt due to positioning. Pedal is 150+. She is not ambulating. ASSESSMENT/PLAN I have discussed the situation with from critical care will follow through with recommendations. The patient presented with recurrent pneumothorax with severe respiratory distress in the setting of underlying severe COPD. She underwent chest tube placement. Her electrocardiogram has been normal despite elevation in her troponin. The troponin may well represent a type 2 [id number] ND given her distress. Certainly we cannot rule out underlying lung disease. RECOMMENDATIONS: At this point in time I would recommend the following 1. Baby aspirin 2. DVT prophylaxis with Lovenox or heparin. I do not feel full anticoagulation as necessary. 3. Would recommend statin therapy. I have taken the liberty of starting this and will leave followup to the service here along [place] 4. Pulmonary management per critical care. 5. Echocardiogram is pending. 6. I will not follow but we will be available if needed. Certainly if there is significant abnormalities on the echocardiogram we would need to know about this. She will need some cardiac evaluation in the future which would likely be pharmacologic SPECT nuclear (unlikely to be done given her lung disease) or CT angiogram which would be preferable. This probably should be done before discharge and again I will leave that to the primary service. I have discussed the case with will be available if needed. MD WAQAR Wagner/kaitlyn /5:34 AM /9:37 AM MTDKate
[2016-06-10] MEDS ORDERED: ROFL1TAB2 PO (11:54)
[2016-06-10 12:35] LABS: HDL CHOLESTEROL 43.6 MG/DL (40.0-60.0)
--- NOTE | 2016-06-10 12:50 | EC ---
Study Study Date:06/10/2016 STUDY CONCLUSIONS SUMMARY - Left ventricle: The cavity size was normal. Wall thickness was normal. Systolic function was probably normal. The estimated ejection fraction was 50%. Wall motion was normal; there were no regional wall motion abnormalities. - Tricuspid valve: Mild regurgitation. If LV function is below 40, please consider prescribing an ACEI or ARB or document rationale for non-use. PROCEDURE DATA STUDY STATUS: Elective. Procedure: Transthoracic echocardiography. Image quality was good. Scanning was performed from the parasternal, apical, and subcostal acoustic windows. Study completion: The patient tolerated the procedure well. Transthoracic echocardiography. M-mode, complete 2D, complete spectral Doppler, and color Doppler. Patient status: Inpatient. CARDIAC ANATOMY LEFT VENTRICLE: Not well visualized. The cavity size was normal. Wall thickness was normal. Systolic function was probably normal. The estimated ejection fraction was 50%. Wall motion was normal; there were no regional wall motion abnormalities. AORTIC VALVE: Trileaflet; normal thickness leaflets. Doppler: Transvalvular velocity was within the normal range. There was no stenosis. No regurgitation. AORTA: Aortic root: The aortic root was normal in size. MITRAL VALVE: Structurally normal valve. Doppler: Transvalvular velocity was within the normal range. There was no evidence for stenosis. Trace to mild regurgitation. Peak gradient: 3mm Hg (D). LEFT ATRIUM: The atrium was normal in size. RIGHT VENTRICLE: The cavity size was normal. Wall thickness was normal. PULMONIC VALVE: Doppler: Transvalvular velocity was within the normal range. There was no evidence for stenosis. No regurgitation. TRICUSPID VALVE: Structurally normal valve. Doppler: Transvalvular velocity was within the normal range. Mild regurgitation. PULMONARY ARTERY: The main pulmonary artery was normal-sized. Systolic pressure was within the normal range. RIGHT ATRIUM: The atrium was normal in size. PERICARDIUM: There was no pericardial effusion. SYSTEMIC VEINS: Inferior vena cava: The vessel was normal in size. BASIC MEASUREMENTS ADULT Normal Left ventricle LV internal dimension, ED, chordal level, 51 mm 43-52 PLAX LV internal dimension, ES, chordal level, *42.6 mm 23-38 PLAX Fractional shortening, chordal level, PLAX *16 % >29 LV posterior wall thickness, ED 8.27 mm IVS/LVPW ratio, ED *1.56 <1.3 Ventricular septum Septal thickness, ED 12.9 mm Aortic valve Leaflet separation 16 mm 15-26 Right ventricle RV internal dimension, ED, PLAX 24.3 mm 19-38 BASIC MEASUREMENTS ADULT Normal Aortic valve Leaflet separation 16 mm 15-26 Aorta Root diameter, ED 33 mm 20-37 Left atrium Anterior-posterior dimension, ES 30 mm 19-40 LA/aortic root ratio 0.91 DOPPLER MEASUREMENTS ADULT Normal Main pulmonary artery Pressure, S 30 mm Hg =30 Mitral valve Peak E-wave velocity 93.3 cm/s Peak A-wave velocity 116 cm/s Peak gradient, D 3 mm Hg Peak E/A ratio 0.8 Tricuspid valve Regurgitant peak velocity 222 cm/s Peak RV-RA gradient, S 20 mm Hg Maximal regurgitant velocity 222 cm/s Systemic veins Estimated CVP 10 mm Hg Right ventricle RV pressure, S *30 mm Hg <30 LEGEND: Mean values are shown as u=mean value. Asterisk (*) sanders values outside specified normal range. Prepared and signed by Andrea Patterson [id number]
[2016-06-10] MEDS ORDERED: ONDANSETRON HCL 4 MG/2 ML VIAL IV PUSH PRN (13:45)
--- NOTE | 2016-06-10 16:06 | EKG ---
Date Performed: 06/09/2016 Time Performed: 17:00:58 PTAGE: 71 years EKG: Sinus tachycardia Possible right atrial abnormality Lateral ST changes suggest myocardial i njury/ischemia Abnormal ECG NO PREVIOUS TRACING DOCTOR: Ahsan Pickard Interpretating Date/Time 06/10/2016 16:05:34
--- NOTE | 2016-06-10 16:09 | EKG ---
Date Performed: 06/09/2016 Time Performed: 21:13:26 PTAGE: 71 years EKG: Sinus rhythm SINCE PRIOR TRACING PREVIOUSLY SEEN CHANGES HAS IMPROVED. Normal ECG PREVIOUS TRACING : 06/09/2016 17.00 DOCTOR: Ahsan Pickard Interpretating Date/Time 06/10/2016 16:07:10
[2016-06-10] MEDS: AZITHROMYCIN INJ 500 MG in SODIUM CHLOR 0.9% 250 ML INJ 250 ML IV SCH (16:14)
[2016-06-10] MEDS: PROCHLORPERAZINE INJ 10 MG/2 ML VIAL IVS PRN (16:53)
--- NOTE | 2016-06-10 19:06 | MB ---
cc: KEY BRISENO MD DATE OF CONSULTATION 06/10/[address] Russ Jameson REASON FOR CONSULTATION Pulmonary management, pneumothorax. HISTORY OF THE PRESENT ILLNESS Ms. Valverde is a pleasant 71-year-old female from [place]. She was visiting her sister over here. She has a history of COPD and she is oxygen dependent, uses oxygen 2 liters nasal cannula all the time. And uses Advair, Spiriva. She also has history of pneumothorax in the past in 2008. The patient was visiting her sister and suddenly she became short of breath. Did not have any chest pain, nausea or vomiting. No palpitations. Her saturation was dropping. The patient was brought by the [facility]. The patient was intubated. She was found to the right pneumothorax. She has a right chest tube placed and now the pneumothorax has resolved. She still has the chest tube on water seal. The patient was intubated and she has been extubated today. Now she is weaned down to nasal cannula, feels much better. Normally she is up, around and active, uses oxygen all the time. PAST MEDICAL HISTORY Significant for: 1. A history of hypertension. 2. and COPD. She is oxygen dependent. 3. History of CA of the breast status post lumpectomy followed by 6 months of chemotherapy and 33 radiation,. 4. History of cancer of the cervix. 5. She had a hysterectomy done. 6. History of pneumothorax in the past. MEDICATIONS She is currently takin. Compazine p.r.n. 2. Zithromax 500 mg a day. 3. Rocephin 1 gram a day. 4. Lipitor 40 milligrams a day. 5. Aspirin 81 mg a day. 6. Oxycodone 5 mg as needed. 7. Albuterol/Atrovent nebulizer treatment. 8. Solu-Medrol 80 milligrams q.8h. 9. Insulin on sliding scale. ALLERGIES NO KNOWN DRUG ALLERGIES. SOCIAL HISTORY She is a , lives alone. Has history of smoking which she quit in 1993. 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 She has history of smoking which she quit. FAMILY HISTORY She has one daughter. REVIEW OF SYSTEMS Normally she is up, around and active. Uses oxygen all the time. Has a history of pneumothorax. No DVT or pulmonary embolism. No seizure, stroke or epilepsy. PHYSICAL EXAMINATION GENERAL: Well-developed, well-nourished female mild short of breath. VITAL SIGNS: Blood pressure 117/67, heart rate 114, respirations 18, temperature 98.8. HEENT: Pupils are equal, round and reactive to light. Oral mucosa, nasal mucosa normal. NECK: Supple. JVP not raised. CHEST: She has a hyperresonant chest. She has right chest tube in place. The chest tube is on water seal. No subcutaneous emphysema. CARDIOVASCULAR: S1, S2 normal. ABDOMEN: Benign. EXTREMITIES: No edema. CENTRAL NERVOUS SYSTEM: Alert and oriented times three. No focal deficit. LABORATORY DATA WBC count 11.4, hemoglobin 10.7, hematocrit 33.2, MCV 79, platelet count 257. Sodium 139, potassium 3.5, chloride 102, CO2 27, BUN 12, creatinine 0.9. Her troponin is elevated 2.38. ASSESSMENT 1. Respiratory failure status post extubation. 2. Pneumothorax status post chest tube placement. 3. Possible non ST myocardial infarction. 4. Chronic obstructive pulmonary disease. She is oxygen dependent. 5. History of cancer of the breast status post lumpectomy, chemotherapy and radiation therapy. 6. Cancer of the cervix status post hysterectomy. PLAN I discussed with the patient we will leave the chest tube to water seal. We will get a chest x-ray in the morning. If no pneumothorax we will clamp the chest tube and plan to take the chest tube. The patient has been seen by Dr. Tirado. We will continue antibiotic, aerosol treatment, IV Solu-Medrol, supplemental oxygen. Further treatment will depend on the course in the hospital. Thank you Dr. Russ Jameson for this consultation. MD RAJNI Malcolm/TEGAN /6:03 PM /6:45 PM
[2016-06-10] MEDS: ENOXAPARIN SODIUM 40 MG/0.4 ML SYRINGE SQ SCH (22:52)
[2016-06-11] VITALS (10 sets, daily range): BP systolic 115–123; BP diastolic 58–70; PULSE 105–122; RESP 18–20; TEMP 96.5–98.3; O2SAT 95–100
[2016-06-11] MEDS: RESP: ALBUTEROL 2.5 MG/IPRATROPIUM 0.5 MG NEB (SCH) NEB ×4 (03:19→21:08)
[2016-06-11] MEDS: PROCHLORPERAZINE INJ 10 MG/2 ML VIAL IVS PRN (03:26)
[2016-06-11] MEDS: CHLORHEXIDINE GLUCONATE 2 % 1 PACK (2 CLOTHS) TOP SCH (04:00)
--- NOTE | 2016-06-11 06:17 | RADHPO ---
EXAM DATE/TIME: 06/11/2016 05:54 [facility] COMPARISON: CHEST SINGLE AP, June 09, 2016, 18:45. CHEST SINGLE AP, June 10, 2016, 6:45. INDICATIONS : Shortness of breath. MEDICAL HISTORY : None. SURGICAL HISTORY : Right side chest tube. ENCOUNTER: Subsequent ACUITY: 3 days PAIN SCORE: Non-responsive. LOCATION: Bilateral chest FINDINGS: Single AP view of the chest. Right-sided chest tube remains in place along with right axillary clips. Subcutaneous emphysema on the right. Small right apical pneumothorax measuring 5-6 mm. Mild atelecta sis at the lung bases. Blunting of the left costophrenic sulcus unchanged. Calcified lymph nodes on t he right. Endotracheal tube and nasogastric tube no longer seen. CONCLUSION: Endotracheal tube and nasogastric tube no longer seen. Right-sided chest tube remains in place. Small right apical pneumothorax. Jose Manuel Lisa MD on June 11, 2016 at 6:11 Board Certified Radiologist. This report was verified electronically.
[2016-06-11] MEDS: methylPREDNISolone SOD SUCC 125 MG/2 ML VIAL IV PUSH SCH (06:24)
[2016-06-11] MEDS: INSULIN ASPART SUPPLEMENTAL SCALE SQ SCH ×4 (06:31→22:25)
[2016-06-11 06:33] LABS: HEMATOCRIT 31.8 % (35.0-46.0); MEAN CELL VOLUME 79.6 FL (80.0-100.0); MEAN CORPUSCULAR HEMOGLOBIN 25.3 PG (27.0-34.0); MEAN CORPUSCULAR HGB CONC 31.7 % (32.0-36.0); PLATELET COUNT 273 TH/MM3 (150-450); RED BLOOD COUNT 3.99 MIL/MM3 (4.00-5.30); RED CELL DISTRIBUTION WIDTH 13.9 % (11.6-17.2); REVIEW FLAG FINAL; WHITE BLOOD COUNT 14.9 TH/MM3 (4.0-11.0)
[2016-06-11 06:39] LABS: POTASSIUM 3.3 MEQ/L (3.5-5.1)
[2016-06-11 06:45] LABS: BICARBONATE 29.3 MEQ/L (21.0-32.0)
[2016-06-11] MEDS: CHLORHEXIDINE 0.12% (ORAL KIT) 15 ML CUP MT SCH (08:00)
[2016-06-11] MEDS: ATORVASTATIN 40 MG TAB PO SCH (08:02)
[2016-06-11] MEDS: ASPIRIN 81 MG CHEW TAB CHEW SCH (08:02)
[2016-06-11] MEDS: cefTRIAXone INJ 1,000 MG in SODIUM CHLORIDE 0.9% INJ 100 ML IV SCH (08:02)
[2016-06-11] MEDS: SODIUM CHLORIDE 0.9% FLUSH 5 ML FLUSH IVF SCH ×2 (08:02→21:35)
--- NOTE | 2016-06-11 11:16 | HHI.PR ---
Subjective Remarks Follow-up right sided pneumothorax 06/10/16-patient seen and examined; denies any significant shortness of breath or right sided chest pain. Objective Vitals Vital Signs Date Time Temp Pulse Resp B/P Pulse Ox O2 Delivery O2 Flow Rate FiO2 06/11/16 09:33 99 Nasal Cannula 3.00 06/11/16 09:33 99 Nasal Cannula 3.00 06/11/16 09:21 96.5 116 18 120/62 100 06/11/16 08:00 105 06/11/16 04:00 97.5 117 18 116/68 98 06/11/16 00:00 97.1 111 18 115/60 100 06/10/16 21:00 122 06/10/16 20:40 96 Nasal Cannula 3.00 06/10/16 20:40 96 Nasal Cannula 3.00 06/10/16 20:21 97.1 90 18 124/62 99 06/10/16 20:15 112 16 119/64 96 Nasal Cannula 2 06/10/16 18:19 119 16 114/58 98 Nasal Cannula 2 06/10/16 15:34 114 18 117/67 99 Nasal Cannula 06/10/16 13:10 112 16 134/80 95 Nasal Cannula 2 06/10/16 12:03 16 I/O 06/10/16 06/10/16 06/10/16 06/11/16 06/11/16 06/11/16 07:00 15:00 23:00 07:00 15:00 23:00 Intake Total 1100 ml 340 ml 250 ml 120 ml Output Total 300 ml 350 ml Balance 800 ml -10 ml 250 ml 120 ml Intake Oral 240 ml 120 ml IV Total 1100 ml 100 ml 250 ml Output Urine Total 300 ml Emesis 350 ml # Voids 4 # Bowel Movements 0 Result Diagram: 06/11/16 0533 06/11/16 0533 Imaging Last Impressions Chest X-Ray 06/11/16 0600 Signed Impressions: Service Date/Time: Saturday, June 11, 2016 05:54 - CONCLUSION: Endotracheal tube and nasogastric tube no longer seen. Right-sided chest tube remains in place. Small right apical pneumothorax. Jose Manuel Lisa MD Objective Remarks GENERAL: NAD SKIN: Warm and dry. HEAD: Normocephalic. EYES: No scleral icterus. No injection or drainage. NECK: Supple, trachea midline. No JVD or lymphadenopathy. CARDIOVASCULAR: Regular rate and rhythm without murmurs, gallops, or rubs. RESPIRATORY: Breath sounds equal bilaterally. No accessory muscle use.chest tube in place GASTROINTESTINAL: Abdomen soft, non-tender, nondistended. MUSCULOSKELETAL: No cyanosis, or edema. BACK: Nontender without obvious deformity. No CVA tenderness. A/P Problem List: (1) Pneumothorax, right ICD Code: J93.9 Status: Acute (2) Respiratory failure ICD Code: J96.90 Status: Acute (3) COPD with exacerbation ICD Code: J44.1 Status: Acute Assessment and Plan 71-year-old female with 1. Right-sided pneumothorax -- continue CT to suction and repeat chest x-ray 06/11/16 with evidence of Small right apical pneumothorax -- Management per pulmonary medicine 2. Type II Respiratory Failure -- Resolved; status post extubation 3. COPD Exacerbation -- continue steroids however switch Solu-Medrol to 40 mg every 12 hour, add Spiriva and Symbicort, abx -- frequent nebs 4. Suspected respiratory tract infection -- continue Rocephin and Azithromycin -- f/u blood and sputum cultures 5. Type II NSTEMI -- likely secondary to demand ischemia in the setting of hemodynamic and pulmonary instability during acute pneumothorax and respiratory failure. -- continue baby aspirin 81mg daily -- will hold off on heparin drip. this does not clinically appear as ACS, and the patient has no complaint of chest pain since admission -- appreciate cardiology consult -- 2d echo with EF 50%. -- LDL 74 6. Hyperglycemia of Critical Illness -- SSI and check hemoglobin A1c 7. Leukocytosis: This appears to be secondary to possible steroid versus infectious process 8. SCDs, Lovenox, Pepcid for ppx. Problem Qualifiers (1) Respiratory failure: Qualified Code: J96.00 - Acute respiratory failure, unspecified whether with hypoxia or hypercapnia Deon Vega MD Jun 11, 2016 11:16
[2016-06-11] MEDS: AZITHROMYCIN INJ 500 MG in SODIUM CHLOR 0.9% 250 ML INJ 250 ML IV SCH (15:50)
[2016-06-11] MEDS ORDERED: MENTHOL LOZENGE SUCK-ON PRN (17:15)
[2016-06-11] MEDS: BUDESONIDE-FORMOTEROL 160/4.5 MCG INHALER INH SCH (21:32)
[2016-06-11] MEDS: ENOXAPARIN SODIUM 40 MG/0.4 ML SYRINGE SQ SCH (21:33)
[2016-06-11] MEDS: methylPREDNISolone SOD SUCC 40 MG/1 ML VIAL IVP SCH (21:35)
[2016-06-11] MEDS: PHENOL 1.4% SOLN 180 ML BTL MT PRN (22:23)
[2016-06-12] VITALS (9 sets, daily range): BP systolic 126–151; BP diastolic 70–85; PULSE 92–127; RESP 19–20; TEMP 96.7–98.8; O2SAT 95–98
[2016-06-12] MEDS: CHLORHEXIDINE GLUCONATE 2 % 1 PACK (2 CLOTHS) TOP SCH (04:00)
[2016-06-12] MEDS: RESP: ALBUTEROL 2.5 MG/IPRATROPIUM 0.5 MG NEB (SCH) NEB ×4 (04:12→20:08)
[2016-06-12] MEDS: INSULIN ASPART SUPPLEMENTAL SCALE SQ SCH ×4 (05:24→23:32)
[2016-06-12 06:16] LABS: POTASSIUM 3.7 MEQ/L (3.5-5.1)
[2016-06-12 06:25] LABS: MEAN CELL VOLUME 80.3 FL (80.0-100.0); MEAN CORPUSCULAR HEMOGLOBIN 25.2 PG (27.0-34.0); MEAN CORPUSCULAR HGB CONC 31.4 % (32.0-36.0); PLATELET COUNT 323 TH/MM3 (150-450); RED BLOOD COUNT 4.24 MIL/MM3 (4.00-5.30); RED CELL DISTRIBUTION WIDTH 14.6 % (11.6-17.2); REVIEW FLAG FINAL; WHITE BLOOD COUNT 13.9 TH/MM3 (4.0-11.0)
[2016-06-12] MEDS: ATORVASTATIN 40 MG TAB PO SCH (08:34)
[2016-06-12] MEDS: ASPIRIN 81 MG CHEW TAB CHEW SCH (08:34)
[2016-06-12] MEDS: BUDESONIDE-FORMOTEROL 160/4.5 MCG INHALER INH SCH ×2 (08:37→20:29)
[2016-06-12] MEDS: methylPREDNISolone SOD SUCC 40 MG/1 ML VIAL IVP SCH ×2 (08:38→20:25)
[2016-06-12] MEDS: SODIUM CHLORIDE 0.9% FLUSH 5 ML FLUSH IVF SCH ×2 (08:38→20:24)
[2016-06-12] MEDS: TIOTROPIUM BROMIDE 18 MCG INH INH SCH (09:39)
--- NOTE | 2016-06-12 13:32 | RADHPO ---
EXAM DATE/TIME: 06/12/2016 12:53 [facility] COMPARISON: CHEST SINGLE AP, June 09, 2016, 16:54. CHEST SINGLE AP, June 11, 2016, 5:54. INDICATIONS: Evaluate pneumothorax MEDICAL HISTORY: None. SURGICAL HISTORY: Right side chest tube ENCOUNTER: Subsequent ACUITY: 4 - 6 days PAIN SCORE: 2/10 LOCATION: Bilateral chest FINDINGS: Large bore chest tube is in place on the right with subcutaneous emphysema. Left lung is clear. Hea rt and pulmonary vascularity are normal. CONCLUSION: There is no pneumothorax on the right. There is moderate subcutaneous emphysema present. Jd El MD FACR on June 12, 2016 at 13:11 Board Certified Radiologist. This report was verified electronically.
[2016-06-12] MEDS: AZITHROMYCIN INJ 500 MG in SODIUM CHLOR 0.9% 250 ML INJ 250 ML IV SCH (16:15)
--- NOTE | 2016-06-12 18:21 | HHI.PR ---
Subjective Remarks 71 YOWF with RF,s/p extubation PTx Chest tube to water seal CXR no ptx Breathing better Objective Vital Signs Vital Signs Date Time Temp Pulse Resp B/P Pulse Ox O2 Delivery O2 Flow Rate FiO2 06/12/16 09:26 96 Nasal Cannula 2.00 06/12/16 09:26 96 Nasal Cannula 2.00 06/12/16 04:00 97.6 109 20 138/70 95 06/12/16 00:00 98.3 127 20 126/85 95 06/11/16 21:10 97 Nasal Cannula 2.00 06/11/16 21:10 97 Nasal Cannula 2.00 06/11/16 20:30 122 06/11/16 20:00 98.3 115 20 121/70 95 06/11/16 18:20 97.8 121 18 123/58 96 I/O 06/11/16 06/11/16 06/11/16 06/12/16 06/12/16 06/12/16 07:00 15:00 23:00 07:00 15:00 23:00 Intake Total 120 ml 200 ml 1040 ml Output Total 750 ml 600 ml 30 ml Balance 120 ml -550 ml 440 ml -30 ml Intake Oral 120 ml 1040 ml IV Total 200 ml Output Urine Total 750 ml 600 ml Chest Tube Drainage Total 30 ml # Voids 4 4 4 # Bowel Movements 0 0 0 Result Diagram: 06/12/1652606/12/16526 Objective Remarks GENERAL: WBWn Wf, NAD SKIN: Warm and dry. HEAD: Normocephalic. EYES: No scleral icterus. No injection or drainage. NECK: Supple, trachea midline. No JVD or lymphadenopathy. CARDIOVASCULAR: Regular rate and rhythm without murmurs, gallops, or rubs. RESPIRATORY: Breath sounds equal bilaterally. No accessory muscle use. Right chest tube to water seal GASTROINTESTINAL: Abdomen soft, non-tender, nondistended. MUSCULOSKELETAL: No cyanosis, or edema. BACK: Nontender without obvious deformity. No CVA tenderness. A/P Assessment and Plan PTX, right RF s/p extubation COPD H/O Ca breast and cx PLAN: Clamp chest tube CXR in AM If no ptx, will dc chest tube tommorow Aerosol nebs IV Solumedrol SQ Lovenox Ry Fields MD Jun 12, 2016 18:21
--- NOTE | 2016-06-12 20:22 | HHI.PR ---
Subjective Remarks Patient sitting on the chair feeling comfortable, chest tube was clamped this morning Afebrile in no acute distress, pulmonary following Objective Vitals Vital Signs Date Time Temp Pulse Resp B/P Pulse Ox O2 Delivery O2 Flow Rate FiO2 06/12/16 20:09 97 Nasal Cannula 2.00 06/12/16 16:00 98.8 122 19 150/79 96 06/12/16 12:00 98.1 108 20 140/72 96 06/12/16 09:26 96 Nasal Cannula 2.00 06/12/16 09:26 96 Nasal Cannula 2.00 06/12/16 08:00 96.7 115 19 151/80 96 06/12/16 06:55 92 06/12/16 04:00 97.6 109 20 138/70 95 06/12/16 00:00 98.3 127 20 126/85 95 06/11/16 21:10 97 Nasal Cannula 2.00 06/11/16 21:10 97 Nasal Cannula 2.00 06/11/16 20:30 122 I/O 06/11/16 06/11/16 06/11/16 06/12/16 06/12/16 06/12/16 07:00 15:00 23:00 07:00 15:00 23:00 Intake Total 120 ml 200 ml 1040 ml 840 ml Output Total 750 ml 600 ml 30 ml 800 ml Balance 120 ml -550 ml 440 ml -30 ml 40 ml Intake Oral 120 ml 1040 ml 840 ml IV Total 200 ml Output Urine Total 750 ml 600 ml 800 ml Chest Tube Drainage Total 30 ml # Voids 4 4 4 # Bowel Movements 0 0 0 Result Diagram: 06/12/16 0527 06/12/16 05 Objective Remarks GENERAL: This is a well-nourished, well-developed patient, in no apparent distress. CARDIOVASCULAR: Regular rate and rhythm without murmurs, gallops, or rubs. RESPIRATORY: Diminished breath sounds bibasilar. No wheezes, rales, or rhonchi. GASTROINTESTINAL: Abdomen soft, non-tender, nondistended. Normal active bowel sounds MUSCULOSKELETAL: Extremities without clubbing, cyanosis, or edema. NEURO: Alert & Oriented x4 to person, place, time, situation. Moves all ext x4 A/P Problem List: (1) Pneumothorax, right ICD Code: J93.9 Status: Acute (2) Respiratory failure ICD Code: J96.90 Status: Acute (3) COPD with exacerbation ICD Code: J44.1 Status: Acute Assessment and Plan 06/12/16: Chest tube clamped today, will continue following with geriatric nurse assistant, chest x-ray in a.m. 1. Right-sided pneumothorax -- continue CT and chest x-ray follow up per geriatric nurse assistant -- Management per pulmonary medicine 2. Type II Respiratory Failure -- Resolved; status post extubation 3. COPD Exacerbation -- continue steroids however switch Solu-Medrol to 40 mg every 12 hour, add Spiriva and Symbicort, abx -- frequent nebs 4. Respiratory tract infection with Moraxella catarrhalis --On Azithromycin --Sputum culture positive for maxilla catarrhalis 5. Type II NSTEMI -- likely secondary to demand ischemia in the setting of hemodynamic and pulmonary instability during acute pneumothorax and respiratory failure. -- continue baby aspirin 81mg daily -- will hold off on heparin drip. this does not clinically appear as ACS, and the patient has no complaint of chest pain since admission -- appreciate cardiology consult -- 2d echo with EF 50%. -- LDL 74 6. Hyperglycemia of Critical Illness -- SSI and check hemoglobin A1c 7. Leukocytosis: This appears to be secondary to possible steroid versus infectious process 8. SCDs, Lovenox, Pepcid for ppx. Problem Qualifiers (1) Respiratory failure: Qualified Code: J96.00 - Acute respiratory failure, unspecified whether with hypoxia or hypercapnia Srini Thapa MD Jun 12, 2016 20:22
[2016-06-12] MEDS: ENOXAPARIN SODIUM 40 MG/0.4 ML SYRINGE SQ SCH (20:23)
[2016-06-13] VITALS (10 sets, daily range): BP systolic 138–159; BP diastolic 72–92; PULSE 101–118; RESP 16–20; TEMP 96.9–97.7; O2SAT 94–99
[2016-06-13] MEDS: RESP: ALBUTEROL 2.5 MG/IPRATROPIUM 0.5 MG NEB (SCH) NEB ×4 (03:43→21:31)
[2016-06-13] MEDS: CHLORHEXIDINE GLUCONATE 2 % 1 PACK (2 CLOTHS) TOP SCH (03:59)
[2016-06-13] MEDS: INSULIN ASPART SUPPLEMENTAL SCALE SQ SCH (05:44)
[2016-06-13 06:16] LABS: HEMATOCRIT 33.1 % (35.0-46.0); MEAN CELL VOLUME 79.9 FL (80.0-100.0); MEAN CORPUSCULAR HEMOGLOBIN 25.9 PG (27.0-34.0); MEAN CORPUSCULAR HGB CONC 32.4 % (32.0-36.0); PLATELET COUNT 304 TH/MM3 (150-450); RED BLOOD COUNT 4.15 MIL/MM3 (4.00-5.30); RED CELL DISTRIBUTION WIDTH 15.1 % (11.6-17.2); REVIEW FLAG FINAL; WHITE BLOOD COUNT 9.8 TH/MM3 (4.0-11.0)
[2016-06-13 06:19] LABS: POTASSIUM 3.9 MEQ/L (3.5-5.1)
[2016-06-13 06:22] LABS: BICARBONATE 34.9 MEQ/L (21.0-32.0)
[2016-06-13] MEDS: ASPIRIN 81 MG CHEW TAB CHEW SCH (09:01)
[2016-06-13] MEDS: ATORVASTATIN 40 MG TAB PO SCH (09:01)
[2016-06-13] MEDS: methylPREDNISolone SOD SUCC 40 MG/1 ML VIAL IVP SCH ×2 (09:02→21:48)
[2016-06-13] MEDS: BUDESONIDE-FORMOTEROL 160/4.5 MCG INHALER INH SCH ×2 (09:04→21:49)
[2016-06-13] MEDS: TIOTROPIUM BROMIDE 18 MCG INH INH SCH (09:05)
[2016-06-13] MEDS: SODIUM CHLORIDE 0.9% FLUSH 5 ML FLUSH IVF SCH ×2 (09:06→21:48)
--- NOTE | 2016-06-13 11:50 | RADHPO ---
EXAM DATE/TIME: 06/13/2016 11:13 [facility] COMPARISON: CHEST SINGLE AP, June 09, 2016, 16:54. CHEST SINGLE AP, June 12, 2016, 12:53. INDICATIONS: Evaluate right pneumothorax MEDICAL HISTORY: None. SURGICAL HISTORY: Right chest tube placement ENCOUNTER: Subsequent ACUITY: 1 week PAIN SCORE: 0/10 LOCATION: Bilateral chest FINDINGS: Chest tube is in place on the right without pneumothorax. Left lung is clear. Moderate subcutaneous emphysema is present. CONCLUSION: There is no pneumothorax with the right chest tube in good position. Jd El MD FACR on June 13, 2016 at 11:41 Board Certified Radiologist. This report was verified electronically.
[2016-06-13] MEDS: AZITHROMYCIN INJ 500 MG in SODIUM CHLOR 0.9% 250 ML INJ 250 ML IV SCH (15:35)
--- NOTE | 2016-06-13 16:47 | HHI.PR ---
Subjective Remarks Sitting in a chair doing well no chest anal short of breath or fever or chills Chest few clamped awaiting pulmonary to decide on DC it Objective Vitals Vital Signs Date Time Temp Pulse Resp B/P Pulse Ox O2 Delivery O2 Flow Rate FiO2 06/13/16 12:00 96.9 117 18 159/80 96 06/13/16 09:55 96 Nasal Cannula 2.00 06/13/16 08:00 97.0 110 19 138/92 98 06/13/16 04:00 97.3 111 20 143/90 97 06/13/16 00:00 97.3 109 20 142/82 97 06/12/16 20:09 97 Nasal Cannula 2.00 06/12/16 20:00 118 06/12/16 20:00 97.6 119 20 135/70 98 I/O 06/12/16 06/12/16 06/12/16 06/13/16 06/13/16 06/13/16 07:00 15:00 23:00 07:00 15:00 23:00 Intake Total 1200 ml 250 ml 360 ml Output Total 30 ml 800 ml 650 ml Balance -30 ml 400 ml 250 ml -290 ml Intake Oral 1200 ml 250 ml 360 ml IV Total 0 ml 0 ml Output Urine Total 800 ml 650 ml Chest Tube Drainage Total 30 ml 0 ml # Voids 2 2 # Bowel Movements 0 0 Result Diagram: 06/13/1652106/13/16521 Objective Remarks GENERAL: This is a well-nourished, well-developed patient, in no apparent distress. CARDIOVASCULAR: Regular rate and rhythm without murmurs, gallops, or rubs. RESPIRATORY: Diminished breath sounds bibasilar. No wheezes, rales, or rhonchi. GASTROINTESTINAL: Abdomen soft, non-tender, nondistended. Normal active bowel sounds MUSCULOSKELETAL: Extremities without clubbing, cyanosis, or edema. NEURO: Alert & Oriented x4 to person, place, time, situation. Moves all ext x4 A/P Problem List: (1) Pneumothorax, right ICD Code: J93.9 Status: Acute (2) Respiratory failure ICD Code: J96.90 Status: Acute (3) COPD with exacerbation ICD Code: J44.1 Status: Acute Assessment and Plan 06/12/16: Chest tube clamped today, will continue following with tag marker, chest x-ray in a.m. 06/13/16: Chest tube continue to be clamped, awaiting on pulmonary to decide on DC it, chest x-ray today showing no pneumothorax, reviewed personally by me 2 A/P 1. Right-sided pneumothorax -- continue CT and chest x-ray follow up per tag marker -- Management per pulmonary medicine 2. Type II Respiratory Failure -- Resolved; status post extubation 3. COPD Exacerbation -- continue steroids however switch Solu-Medrol to 40 mg every 12 hour, add Spiriva and Symbicort, abx -- frequent nebs 4. Respiratory tract infection with Moraxella catarrhalis --On Azithromycin --Sputum culture positive for maxilla catarrhalis 5. Type II NSTEMI -- likely secondary to demand ischemia in the setting of hemodynamic and pulmonary instability during acute pneumothorax and respiratory failure. -- continue baby aspirin 81mg daily -- will hold off on heparin drip. this does not clinically appear as ACS, and the patient has no complaint of chest pain since admission -- appreciate cardiology consult -- 2d echo with EF 50%. -- LDL 74 6. Hyperglycemia of Critical Illness -- SSI and check hemoglobin A1c 7. Leukocytosis: This appears to be secondary to possible steroid versus infectious process 8. SCDs, Lovenox, Pepcid for ppx. Problem Qualifiers (1) Respiratory failure: Qualified Code: J96.00 - Acute respiratory failure, unspecified whether with hypoxia or hypercapnia Srini Thapa MD Jun 13, 2016 16:47
--- NOTE | 2016-06-13 20:00 | RADHPO ---
EXAM DATE/TIME: 06/13/2016 19:35 [facility] COMPARISON: CHEST SINGLE AP, June 13, 2016, 11:13. INDICATIONS : Post right chest tube removal. MEDICAL HISTORY : None. SURGICAL HISTORY : Right chest tube placement ENCOUNTER: Subsequent ACUITY: 1 week PAIN SCORE: 0/10 LOCATION: Right chest FINDINGS: A single AP erect portable view of the chest was obtained and demonstrated a right-sided chest tube w ith no visualized pneumothorax. Subcutaneous emphysema remains over the right lateral chest wall. The re are surgical clips projected over the right lower lobe. I'll streaky opacity remains at the lung b ases. The heart size remains within normal limits. There are calcified right hilar lymph nodes. Overl jatin electrocardiogram leads remain. CONCLUSION: 1. Interval removal of right-sided chest tube with no pneumothorax. 2. Streaky opacity remains at the lung bases. Rodriguez Duran MD on June 13, 2016 at 19:57 Board Certified Radiologist. This report was verified electronically.
--- NOTE | 2016-06-13 20:44 | HHI.PR ---
Subjective Remarks 71 YOWF with RF,s/p extubation PTx Chest tube removed CXR no ptx Breathing better Objective Vital Signs Vital Signs Date Time Temp Pulse Resp B/P Pulse Ox O2 Delivery O2 Flow Rate FiO2 06/13/16 16:00 97.2 104 19 155/76 94 06/13/16 12:00 96.9 117 18 159/80 96 06/13/16 09:55 96 Nasal Cannula 2.00 06/13/16 08:00 97.0 110 19 138/92 98 06/13/16 06:30 101 06/13/16 04:00 97.3 111 20 143/90 97 06/13/16 00:00 97.3 109 20 142/82 97 I/O 06/12/16 06/12/16 06/12/16 06/13/16 06/13/16 06/13/16 07:00 15:00 23:00 07:00 15:00 23:00 Intake Total 1200 ml 250 ml 360 ml 960 ml Output Total 30 ml 800 ml 650 ml 1150 ml Balance -30 ml 400 ml 250 ml -290 ml -190 ml Intake Oral 1200 ml 250 ml 360 ml 960 ml IV Total 0 ml 0 ml Output Urine Total 800 ml 650 ml 1150 ml Chest Tube Drainage Total 30 ml 0 ml # Voids 2 2 # Bowel Movements 0 0 Result Diagram: 06/13/1652106/13/16521 Objective Remarks GENERAL: WBWn Wf, NAD SKIN: Warm and dry. HEAD: Normocephalic. EYES: No scleral icterus. No injection or drainage. NECK: Supple, trachea midline. No JVD or lymphadenopathy. CARDIOVASCULAR: Regular rate and rhythm without murmurs, gallops, or rubs. RESPIRATORY: Breath sounds equal bilaterally. No accessory muscle use. GASTROINTESTINAL: Abdomen soft, non-tender, nondistended. MUSCULOSKELETAL: No cyanosis, or edema. BACK: Nontender without obvious deformity. No CVA tenderness. A/P Assessment and Plan PTX, right RF s/p extubation COPD H/O Ca breast and cx PLAN: Aerosol nebs IV Solumedrol SQ Lovenox Wean 02 Ry Fields MD Jun 13, 2016 20:44
[2016-06-13] MEDS: ENOXAPARIN SODIUM 40 MG/0.4 ML SYRINGE SQ SCH (21:49)
[2016-06-14] VITALS: BP 130/80; PULSE 116; RESP 18; TEMP 97.4; O2SAT 96
[2016-06-14] MEDS: CHLORHEXIDINE GLUCONATE 2 % 1 PACK (2 CLOTHS) TOP SCH (03:54)
[2016-06-14 04:00] VITALS: BP 106/78; PULSE 96; RESP 18; TEMP 96.6; O2SAT 97
[2016-06-14 07:29] LABS: HEMATOCRIT 33.7 % (35.0-46.0); MEAN CELL VOLUME 79.6 FL (80.0-100.0); MEAN CORPUSCULAR HEMOGLOBIN 25.5 PG (27.0-34.0); MEAN CORPUSCULAR HGB CONC 32.1 % (32.0-36.0); PLATELET COUNT 312 TH/MM3 (150-450); RED BLOOD COUNT 4.23 MIL/MM3 (4.00-5.30); RED CELL DISTRIBUTION WIDTH 14.2 % (11.6-17.2); REVIEW FLAG FINAL; WHITE BLOOD COUNT 8.4 TH/MM3 (4.0-11.0)
[2016-06-14 07:33] LABS: POTASSIUM 4.1 MEQ/L (3.5-5.1)
[2016-06-14 07:37] LABS: BICARBONATE 37.3 MEQ/L (21.0-32.0)
[2016-06-14 07:40] VITALS: O2SAT 99
[2016-06-14 08:00] VITALS: BP 166/86; PULSE 102; RESP 20; TEMP 97; O2SAT 97
[2016-06-14] MEDS: methylPREDNISolone SOD SUCC 40 MG/1 ML VIAL IVP SCH (08:11)
[2016-06-14] MEDS: TIOTROPIUM BROMIDE 18 MCG INH INH SCH (08:11)
[2016-06-14] MEDS: ASPIRIN 81 MG CHEW TAB CHEW SCH (08:11)
[2016-06-14] MEDS: BUDESONIDE-FORMOTEROL 160/4.5 MCG INHALER INH SCH (08:11)
[2016-06-14] MEDS: ATORVASTATIN 40 MG TAB PO SCH (08:11)
[2016-06-14] MEDS: SODIUM CHLORIDE 0.9% FLUSH 5 ML FLUSH IVF SCH (08:12)
[2016-06-14] MEDS: PHENOL 1.4% SOLN 180 ML BTL MT PRN (08:12)
[2016-06-14 12:00] VITALS: BP 151/92; PULSE 95; RESP 20; TEMP 96.9; O2SAT 93
--- NOTE | 2016-06-14 12:09 | RADHPO ---
EXAM DATE/TIME: 06/14/2016 11:40 [facility] COMPARISON: CHEST SINGLE AP, June 13, 2016, 19:35. INDICATIONS : Post right side chest tube removal. MEDICAL HISTORY : Pneumothorax. SURGICAL HISTORY : None. ENCOUNTER: Subsequent ACUITY: 4 - 6 days PAIN SCORE: 0/10 LOCATION: Right chest FINDINGS: There is no evidence of pneumothorax. There is some chronic interstitial changes of both lung jolley which are stable compared to the prior study. There continues to be subcutaneous emphysema along the right chest wall. There are surgical clips along the right chest wall. Heart size is stable. No pleur al effusions. No definite new infiltrates. The bony structures are stable. CONCLUSION: Stable exam compared to the prior study. No pneumothorax. Eleazar Hitchcock MD on June 14, 2016 at 12:06 Board Certified Radiologist. This report was verified electronically.
--- NOTE | 2016-06-14 12:10 | HHI.PR ---
Subjective Remarks Doing good chest tube removed, patient has no complaint, cardiology previously recommended doing stress test prior to discharge, which we will do prior to discharge today Objective Vitals Vital Signs Date Time Temp Pulse Resp B/P Pulse Ox O2 Delivery O2 Flow Rate FiO2 06/14/16 08:00 97.0 102 20 166/86 97 06/14/16 08:00 102 06/14/16 07:40 99 Nasal Cannula 3.00 06/14/16 07:40 99 Nasal Cannula 2.00 06/14/16 04:00 96.6 96 18 106/78 97 06/14/16 00:00 97.4 116 18 130/80 96 06/13/16 21:31 99 Nasal Cannula 2.00 06/13/16 21:31 99 Nasal Cannula 2.00 06/13/16 20:00 97.7 118 16 142/72 96 06/13/16 19:30 108 06/13/16 16:00 97.2 104 19 155/76 94 I/O 06/13/16 06/13/16 06/13/16 06/14/16 06/14/16 06/14/16 07:00 15:00 23:00 07:00 15:00 23:00 Intake Total 250 ml 360 ml 1200 ml 0 ml Output Total 650 ml 1150 ml Balance 250 ml -290 ml 50 ml 0 ml Intake Oral 250 ml 360 ml 1200 ml IV Total 0 ml 0 ml 0 ml Output Urine Total 650 ml 1150 ml # Voids 2 3 2 # Bowel Movements 0 0 0 Result Diagram: 06/14/16 0621 06/14/1621 Objective Remarks GENERAL: This is a well-nourished, well-developed patient, in no apparent distress. CARDIOVASCULAR: Regular rate and rhythm without murmurs, gallops, or rubs. RESPIRATORY: Diminished breath sounds bibasilar. No wheezes, rales, or rhonchi. GASTROINTESTINAL: Abdomen soft, non-tender, nondistended. Normal active bowel sounds MUSCULOSKELETAL: Extremities without clubbing, cyanosis, or edema. NEURO: Alert & Oriented x4 to person, place, time, situation. Moves all ext x4 A/P Problem List: (1) Pneumothorax, right ICD Code: J93.9 Status: Acute (2) Respiratory failure ICD Code: J96.90 Status: Acute (3) COPD with exacerbation ICD Code: J44.1 Status: Acute Assessment and Plan 06/12/16: Chest tube clamped today, will continue following with machine adjuster, chest x-ray in a.m. 06/13/16: Chest tube continue to be clamped, awaiting on pulmonary to decide on DC it, chest x-ray today showing no pneumothorax, reviewed personally by me 06/14/16: Chest tube removed patient doing well no complaint, will do nuclear stress test cardiology recommendation prior to discharge was negative will discharge home, repeat chest x-ray after chest tube is removed Addendum: Chest x-ray came back negative, stress test back negative, will discharge patient A/P 1. Right-sided pneumothorax -- continue CT and chest x-ray follow up per machine adjuster -- Management per pulmonary medicine 2. Type II Respiratory Failure -- Resolved; status post extubation 3. COPD Exacerbation -- continue steroids however switch Solu-Medrol to 40 mg every 12 hour, add Spiriva and Symbicort, abx -- frequent nebs 4. Respiratory tract infection with Moraxella catarrhalis --On Azithromycin --Sputum culture positive for maxilla catarrhalis 5. Type II NSTEMI -- likely secondary to demand ischemia in the setting of hemodynamic and pulmonary instability during acute pneumothorax and respiratory failure. -- continue baby aspirin 81mg daily -- will hold off on heparin drip. this does not clinically appear as ACS, and the patient has no complaint of chest pain since admission -- appreciate cardiology consult -- 2d echo with EF 50%. -- LDL 74 6. Hyperglycemia of Critical Illness -- SSI and check hemoglobin A1c 7. Leukocytosis: This appears to be secondary to possible steroid versus infectious process 8. SCDs, Lovenox, Pepcid for ppx. Problem Qualifiers (1) Respiratory failure: Qualified Code: J96.00 - Acute respiratory failure, unspecified whether with hypoxia or hypercapnia Srini Thapa MD Jun 14, 2016 12:10
[2016-06-14] MEDS ORDERED: REGADENOSON INJ 0.4 MG/5 ML SYR IV ONE (13:07)
--- NOTE | 2016-06-14 14:20 | RADHPO ---
EXAM DATE/TIME: 06/14/2016 13:26 [facility] COMPARISON: No previous studies available for comparison. INDICATIONS : Chest pain for 1 day. Angina. Coronary artery disease. DOSE: 25.8 mCi Tc99m Myoview at stress. 8.1 mCi Tc99m Myoview at rest. 0.4 mg Lexiscan STRESS SYMPTOMS: Nausea. EJECTION FRACTION: 54% MEDICAL HISTORY : Chronic obstructive pulmonary disease. Carcinoma, breast. Hypertension. Cervical cancer. SURGICAL HISTORY : Hysterectomy. ENCOUNTER: Initial ACUITY: 1 day PAIN SCALE: 3/10 LOCATION: Bilateral chest TECHNIQUE: The patient underwent pharmacologic stress with infusion of prescribed dose. Continuous ECG tracing was monitored during stress. Gated SPECT imaging was performed after stress and conventional SPECT i maging was performed at rest. The examination was performed on a SPECT/CT scanner, both attenuation and non-corrected datasets were reviewed. FINDINGS: DISTRIBUTION: The maximum perfused segment at stress is in the anterior wall. PERFUSION STUDY: The pattern of perfusion at stress is within normal limits. GATED STUDY: There is intact wall motion and thickening without hypokinetic or dyskinetic segments. CONCLUSION: Unremarkable myocardial perfusion exam. RISK CATEGORY: Low Eleazar Hitchcock MD on June 14, 2016 at 14:17 Board Certified Radiologist. This report was verified electronically.
[2016-06-14 16:00] VITALS: BP 145/88; PULSE 99; RESP 18; TEMP 98.1; O2SAT 98
[2016-06-14] MEDS: AZITHROMYCIN INJ 500 MG in SODIUM CHLOR 0.9% 250 ML INJ 250 ML IV SCH (16:00)
[2016-06-14] MEDS ORDERED: MEDR4PAK PO (18:04)
[2016-06-14] MEDS ORDERED: LIPI40TA PO (18:04)
[2016-06-14] MEDS ORDERED: OXYC-392 PO (18:05)
--- NOTE | 2016-06-14 18:08 | HHI.DS ---
Discharge Summary Admission Date Jun 09, 2016 at 18:49 Discharge Date: Jun 14, 2016 Admitting Diagnosis respiratory failure, right pneumothorax (1) Pneumothorax, right ICD Code: J93.9 (2) Respiratory failure ICD Code: J96.90 (3) COPD with exacerbation ICD Code: J44.1 Procedures Intubation and extubation Brief History - From Admission History of Present Illness HPI 31-year-old female who was brought to the ER with shortness of breath. She had reportedly been having some cold symptoms and a productive cough for a day. She developed acute onset of respiratory distress for an hour prior to calling 911. EMS reported that she was 'very tight', they gave her a nebulizer treatment 2 however and she became unresponsive. She was brought to the ER while being bagged and following arrival in the ER was emergently intubated and placed on mechanical ventilation by ER physician. Postintubation chest x-ray revealed a large right pneumothorax and she underwent emergent right sided chest tube placement following which her respiratory status improved and she was maintaining O2 sats on mechanical ventilation. She was tachycardic and received fluid bolus in the ER. Cultures were sent and she was started on empiric antibiotics with Rocephin and Zithromax. She also received Solu-Medrol IV. Patient was accepted for admission by critical care medicine service. When I evaluated the patient she was sedated with propofol, orally intubated on mechanical ventilation. History was obtained by reviewing records and discussion with ER physician. At the time of my evaluation she had a right sided chest tube in place with no air leak noted. History PFSH Past Medical History Cancer: Yes (CANCER) COPD: Yes Hypertension: Yes Immunizations Current: Yes Tetanus Vaccination: Unknown : 1 Para: 1 Past Surgical History Hysterectomy: Yes (CERVICAL CA) Thoracic Surgery: Yes (CHEST TUBES) Social History Alcohol Use: No Tobacco Use: No Substance Use: No Allergies-Medications Allergies-Medications (Allergen,Severity, Reaction): Coded Allergies: UNOBTAINABLE (Unverified , 06/09/16) intubated CBC/BMP: 06/14/16 0621 06/14/16 0621 Significant Findings Laboratory Tests Test 06/12/16 06/13/16 06/14/16 05:27 05:22 06:21 White Blood Count 13.9 TH/MM3 (4.0-11.0) Hemoglobin 10.7 GM/DL 10.7 GM/DL 10.8 GM/DL (11.6-15.3) (11.6-15.3) (11.6-15.3) Hematocrit 34.0 % 33.1 % 33.7 % (35.0-46.0) (35.0-46.0) (35.0-46.0) Mean Corpuscular Hemoglobin 25.2 PG 25.9 PG 25.5 PG (27.0-34.0) (27.0-34.0) (27.0-34.0) Mean Corpuscular Hemoglobin 31.4 % Concent (32.0-36.0) Carbon Dioxide Level 33.0 MEQ/L 34.9 MEQ/L 37.3 MEQ/L (21.0-32.0) (21.0-32.0) (21.0-32.0) Blood Urea Nitrogen 25 MG/DL (7-18) 26 MG/DL (7-18) 24 MG/DL (7-18) Estimat Glomerular Filtration 69 ML/MIN (>89) 77 ML/MIN (>89) 78 ML/MIN (>89) Rate Random Glucose 125 MG/DL 122 MG/DL 113 MG/DL (74-106) (74-106) (74-106) Calcium Level 8.0 MG/DL 8.2 MG/DL 8.2 MG/DL (8.5-10.1) (8.5-10.1) (8.5-10.1) Mean Corpuscular Volume 79.9 FL 79.6 FL (80.0-100.0) (80.0-100.0) PE at Discharge GENERAL: This is a well-nourished, well-developed patient, in no apparent distress. CARDIOVASCULAR: Regular rate and rhythm without murmurs, gallops, or rubs. RESPIRATORY: Diminished breath sounds bibasilar. No wheezes, rales, or rhonchi. GASTROINTESTINAL: Abdomen soft, non-tender, nondistended. Normal active bowel sounds MUSCULOSKELETAL: Extremities without clubbing, cyanosis, or edema. NEURO: Alert & Oriented x4 to person, place, time, situation. Moves all ext x4 Transfer Summary 31-year-old female who was brought to the ER with shortness of breath. She had reportedly been having some cold symptoms and a productive cough for a day. She developed acute onset of respiratory distress for an hour prior to calling 911. EMS reported that she was 'very tight', they gave her a nebulizer treatment 2 however and she became unresponsive. She was brought to the ER while being bagged and following arrival in the ER was emergently intubated and placed on mechanical ventilation by ER physician. Postintubation chest x-ray revealed a large right pneumothorax and she underwent emergent right sided chest tube placement following which her respiratory status improved and she was maintaining O2 sats on mechanical ventilation. She was tachycardic and received fluid bolus in the ER. Cultures were sent and she was started on empiric antibiotics with Rocephin and Zithromax. She also received Solu-Medrol IV. Patient was accepted for admission by critical care medicine service. When I evaluated the patient she was sedated with propofol, orally intubated on mechanical ventilation. History was obtained by reviewing records and discussion with ER physician. At the time of my evaluation she had a right sided chest tube in place with no air leak noted. Subjective: 06/10: awake this morning, on minimal sedation. no air leak this morning. no chest tube output. spo2 100% on fio2 35%. denies pain this morning. says she is from out of state up [place]. difficult to get full history due to her being intubated. denies chest pain. Dr. Tirado at bedside with me during my exam. Objective Vital Signs Date Time Temp Pulse Resp B/P Pulse Ox O2 Delivery O2 Flow Rate FiO2 06/10/16 05:23 90 114/68 100 06/10/16 04:30 97.7 12 Ventilator 35 06/09/16 17:10 15 Intake and Output 06/09/16 06/09/16 06/10/16 08:00 16:00 00:00 Intake Total 3000 ml Output Total 1000 ml Balance 2000 ml Result Diagram: 06/10/16 0600 06/10/16 0600 Other Results Microbiology Date/Time Procedure Status Source Growth 06/09/16 20:00 Influenza Types A,B Antigen (SAMY) - Final Complete Nasal Washing NEGATIVE FOR FLU A AND B ANTIGEN.... Laboratory Tests Test 06/09/16 06/09/16 18:22 23:47 Blood Gas Puncture Site LT RADIAL RT RADIAL Blood Gas Patient Temperature 98.6 98.6 Blood Gas HCO3 30 mmol/L 28 mmol/L (22-26) (22-26) Blood Gas Base Excess 3.3 mmol/L 2.9 mmol/L (-2-2) (-2-2) Blood Gas Oxygen Saturation 98 % (90-100) 97 % (90-100) Arterial Blood pH 7.26 7.35 (7.380-7.420) (7.380-7.420) Arterial Blood Partial 70 mmHG (38-42) 53 mmHG (38-42) Pressure CO2 Arterial Blood Partial 479 mmHG 173 mmHG Pressure O2 (61-120) (61-120) Arterial Blood Oxygen Content 15.8 Vol % 14.5 Vol % (12.0-20.0) (12.0-20.0) Arterial Blood 1.2 % (0-4) 1.5 % (0-4) Carboxyhemoglobin Arterial Blood Methemoglobin 1.2 % (0-2) 1.0 % (0-2) Blood Gas Hemoglobin 10.6 G/DL 10.4 G/DL (12.0-16.0) (12.0-16.0) Oxygen Delivery Device VENTILATOR VENTILATOR Blood Gas Ventilator Setting [facility]/ AC 12/550/5PEEP Blood Gas Inspired Oxygen 100 % 45 % Imaging CXR 06/09 immediate postintubation (personally reviewed): ET tube above greg, large right pneumothorax chest x-ray 06/09 post chest tube placement (personally reviewed): ET tube above greg, right sided chest tube in place, complete reexpansion of right lung with no pneumothorax noted, no obvious infiltrates, hyperinflated lung jolley Objective Remarks HEENT/ Neuro: Sedated, orally intubated, no pallor or icterus, tongue moist Neck: No JVD Chest/Pulm: on mech vent, good air entry bilaterally, significant ronchi with intermittent expiratory wheezes. CVS: normal rate, regular rhythm, rate in 90s on my exam. no appreciable murmurs. GI/abdomen: soft, nontender, nondistended, no guarding. Extremities: warm bilaterally, no edema, distal pulses 2+ Neuro: RASS -1, CAM -. follows commands. A/P Assessment and Plan Assessment: This is a 71yF with history of o2 dependent COPD on 3L o2 at home who has a history of prior right breast CA s/p mastectomy and prior right-sided pneumothorax requiring chest tube placement, who now presents with acute hypoxic and hypercarbic respiratory failure requiring emergent intubation and chest tube placement for recurrent right-sided pneumothorax. Her lung is re- expanded and her respiratory failure is improving. we will work towards SBT and weaning from mechanical ventilation. Certainly, given her o2 dependent copd, she may be difficult to separate from mechanical ventilation. In terms of her recurrent pneumothorax, we will hold off on high-resolution CT chest since she does not currently have an air leak, but would consider possible CT chest in the future to ensure she does not have a structural defect leading to recurrent pneumothoraces. Plan: 1. Right-sided pneumothorax -- continue CT to suction -- CXR now to ensure lung remains inflated -- AM CXR 2. Type II Respiratory Failure -- SBT this morning -- will attempt to wean to extubate. may require bridge to BiPAP. may be difficult to wean due to her severe COPD. 3. COPD Exacerbation -- continue steroids -- frequent nebs 4. Suspected respiratory tract infection -- continue Rocephin and Azithromycin -- f/u blood and sputum cultures 5. Type II NSTEMI -- likely secondary to demand ischemia in the setting of hemodynamic and pulmonary instability during acute pneumothorax and respiratory failure. -- trend troponins until downtrending -- continue baby aspirin 81mg daily -- will hold off on heparin drip. this does not clinically appear as ACS, and the patient denies chest pain this morning. -- appreciate cardiology consult -- f/u 2d echo. -- lipid panel. 6. Hyperglycemia of Critical Illness -- SSI Hospital Course 71 years old female admitted with acute respiratory failure patient got intubated in the ICU she was found to have a right sided pneumothorax chest tube inserted home nearly consulted, she has a COPD exacerbation placed on Solu- Medrol DuoNeb Spiriva Symbicort, also patient was found to have increased troponin and cardiac enzymes non-ST elevation IL, cardiology consulted recommending medical management and possible stress test prior to discharge. Sputum culture growth Moraxella catarrhalis treated with azithromycin, chest tube removed on evening of 06/13/16, chest x-ray post removing chest tube showed no pneumothorax, I discussed with Dr. Fields he cleared her to do, collagenic nuclear stress test which came back negative cleared for discharge and follow up as an outpatient [id number]-[id number] encounter performed with the patient on discharge day, as well as physical exam, summary of hospitalization course and postdischarge plan has been D/W the patient. D/W nurse Discharge medications reviewed and printed and signed, post discharge follow up visit with PCP and other specialist as well as Brief hospital course and discharge summary has been placed. Pt Condition on Discharge: Fair Discharge Disposition: Discharge Home Discharge Time: > 30 minutes Discharge Instructions DIET: Follow Instructions for: Heart Healthy Diet Activities you can perform: Weight Bearing as Sai New Medications: Methylprednisolone Dosepak (Medrol Dosepak) 4 Mg Dspk 4 MG PO DIRECTED Per Pharmacist direction #1 Ref 0 DSPK Atorvastatin (Lipitor) 40 Mg Tab 40 MG PO DAILY HLD #30 TAB Oxycodone (Oxycodone) 5 Mg Tab 5 MG PO Q4H PRN pain 1-7 #7 TAB Continued Medications: Amlodipine (Amlodipine) 5 Mg Tab 5 MG PO DAILY Blood Pressure Management #[address] (Aspirin 81) 81 Mg Tabdr 81 MG PO DAILY Ref 0 TAB Clobetasol Topical (Clobetasol Topical) 0.05% Cream 1 APPLIC TOPICAL BID PRN RASH #15 Ref 0 GM Fluticasone-Salmeterol Inh (Advair Diskus Inh) 250-50 Mcg/Blist Aer 2 PUFF INH BID Rinse mouth after use. #1 Ref 0 INHALER Hydrochlorothiazide (Hydrochlorothiazide) 50 Mg Tab 50 MG PO DAILY #60 Ref 0 TAB Levothyroxine (Synthroid) 100 Mcg Tab 100 MCG PO DAILY Thyroid #30 Ref 0 TAB Magnesium (Magnesium) 500 Mg Tab 1000 MG PO DAILY Nutritional Supplement Ref 0 TAB Naphazoline W/ Pheniramine (Opcon-A 0.027-0.315 %) 1 Laura Laura PRN DRY EYE Niacin (Niacin) 500 Mg Tab 500 MG PO DAILY Cholesterol Management #30 Ref 0 TAB Omeprazole (Omeprazole) 20 Mg Tab 20 MG PO DAILY #30 Ref 0 TAB Roflumilast (Daliresp) 500 Mcg Tab 500 MCG PO DAILY COPD #30 Ref 0 TAB Tiotropium Inh (Spiriva Respimat Inh) 2.5 Mcg/Act Aero 2 PUFF INH DAILY 2.5 mcg = 1 inhalation COPD #1 Ref 0 INHALER Srini Thapa MD Jun 14, 2016 18:08
--- NOTE | 2016-06-14 18:50 | HHI.PR ---
Subjective Remarks 71 YOWF with RF,s/p extubation PTx Chest tube removed CXR no ptx Breathing better had stress test, no ischemia Objective Vital Signs Vital Signs Date Time Temp Pulse Resp B/P Pulse Ox O2 Delivery O2 Flow Rate FiO2 06/14/16 16:00 98.1 99 18 145/88 98 06/14/16 12:00 96.9 95 20 151/92 93 06/14/16 08:00 97.0 102 20 166/86 97 06/14/16 08:00 102 06/14/16 07:40 99 Nasal Cannula 3.00 06/14/16 07:40 99 Nasal Cannula 2.00 06/14/16 04:00 96.6 96 18 106/78 97 06/14/16 00:00 97.4 116 18 130/80 96 06/13/16 21:31 99 Nasal Cannula 2.00 06/13/16 21:31 99 Nasal Cannula 2.00 06/13/16 20:00 97.7 118 16 142/72 96 06/13/16 19:30 108 I/O 06/13/16 06/13/16 06/13/16 06/14/16 06/14/16 06/14/16 07:00 15:00 23:00 07:00 15:00 23:00 Intake Total 250 ml 360 ml 1200 ml 0 ml 675 ml Output Total 650 ml 1150 ml Balance 250 ml -290 ml 50 ml 0 ml 675 ml Intake Oral 250 ml 360 ml 1200 ml 675 ml IV Total 0 ml 0 ml 0 ml Output Urine Total 650 ml 1150 ml # Voids 2 3 2 4 # Bowel Movements 0 0 0 Result Diagram: 06/14/1662006/14/16620 Objective Remarks GENERAL: WBWn Wf, NAD SKIN: Warm and dry. HEAD: Normocephalic. EYES: No scleral icterus. No injection or drainage. NECK: Supple, trachea midline. No JVD or lymphadenopathy. CARDIOVASCULAR: Regular rate and rhythm without murmurs, gallops, or rubs. RESPIRATORY: Breath sounds equal bilaterally. No accessory muscle use. GASTROINTESTINAL: Abdomen soft, non-tender, nondistended. MUSCULOSKELETAL: No cyanosis, or edema. BACK: Nontender without obvious deformity. No CVA tenderness. A/P Assessment and Plan PTX, right RF s/p extubation COPD H/O Ca breast and cx PLAN: Aerosol nebs SQ Lovenox Wean 02 Stable to DC Advised to go to ER if sob or CP Advised no heavy lifting, air flight Ry Fields MD Jun 14, 2016 18:50
[2016-06-15] MEDS ORDERED: CYAN1TAB24 PO (08:16)
[2016-06-15] MEDS ORDERED: IRON28TA PO (08:16)
== END 2016-06-14 19:25 | disposition home or self-care (01) | DRG 208 ==
LOC: PHED 16:38 → PHEDA 18:49 → PHEDH 22:49 → PH3B 06-10 20:21
PROVIDERS: ADMIT Hospitalist; ATTEND Hospitalist
PROC: 0BH17EZ Insertion of Endotracheal Airway into Trachea, Via Natural or Artificial Opening (ICD-10-PCS; principal; 2016-06-09)
PROC: 5A1935Z Respiratory Ventilation, Less than 24 Consecutive Hours (ICD-10-PCS; 2016-06-09)
PROC: 0W9930Z Drainage of Right Pleural Cavity with Drainage Device, Percutaneous Approach (ICD-10-PCS; 2016-06-09)
DX: J96.01 Acute respiratory failure with hypoxia (principal); I21.4 Non-ST elevation (NSTEMI) myocardial infarction; Z99.81 Dependence on supplemental oxygen; J44.1 Chronic obstructive pulmonary disease with (acute) exacerbation; J93.83 Other pneumothorax; J44.0 Chronic obstructive pulmonary disease with (acute) lower respiratory infection; J22 Unspecified acute lower respiratory infection; R73.9 Hyperglycemia, unspecified; I10 Essential (primary) hypertension; Z85.3 Personal history of malignant neoplasm of breast; Z87.891 Personal history of nicotine dependence
CPT/HCPCS: 31500; 32551; 36600; 71010; 71020; 78452; 80048; 80053; 80061; 81001; 82550; 82552; 82805; 82948; 83605; 83880; 84100; 84484; 85025; 85027; 87040; 87070; 87185; 87205; 87449; 87804; 93005; 93017; 93306; 94002; 94003; 94150; 94640; 94664; 94667; 94668; 94762; A9502; J0456; J0696; J0780; J1170; J1650; J1815; J2405; J2785; J2920; J2930; J3480; J7030; J7050

== ENCOUNTER 2016-06-15 08:00 | Emergency (ER) | payer MEDICARE ==
[~2016-06-15] VITALS: Ht 165.1 cm; Wt 83.0 kg
[~2016-06-15 08:00] MED LIST: ADVA250A INH; AMLO5TAB2 PO; ASPI-110 PO; CLOB0.055 TOPICAL; HYDR50TA3 PO; LEVO.1 PO; LIPI40TA PO; MAGN500T4 PO; MEDR4PAK PO; MOME17I EACH NARE; NIAC500T5 PO; OMEP20TA PO; OPCOSOL; OXYC-392 PO; ROFL1TAB2 PO; TIOT12.9 INH
[2016-06-15 08:03] VITALS: BP 176/89; PULSE 105; RESP 28; TEMP 97.6; O2SAT 100
[2016-06-15 08:09] VITALS: O2SAT 100
[2016-06-15] MEDS ORDERED: IRON28TA PO (08:16)
[2016-06-15] MEDS ORDERED: CYAN1TAB24 PO (08:16)
--- NOTE | 2016-06-15 08:17 | PD ---
HPI Chief Complaint: Respiratory Distress Time Seen by Provider: 08:07 Travel History International Travel<30 days: No Contact w/Intl Traveler<30days: No Traveled to known affect area: No History of Present Illness HPI The patient was seen and examined in the presence of the nurse. This patient complains of shortness of breath. She has oxygen dependent COPD, quit smoking in 2008. She was discharged from the hospital yesterday, about 12 hours ago, after being intubated and receiving chest tube for large pneumothorax on the right side. Her chest tube was pulled 2 days ago. Around 2:30 AM she became abruptly short of breath when getting up to the restroom. She went back to bed however and woke up this morning still short of breath. Severity of symptoms was moderate. Duration 6 hours. She has chronic cough unchanged from usual. Denies fever or chest pain. No alleviating factors. PFSH Past Medical History Cancer: Yes (CANCER breast, cervix, skin) Cardiovascular Problems: Yes COPD: Yes Endocrine: Yes Genitourinary: Yes Hypertension: Yes Immune Disorder: No Implanted Vascular Access Dvce: No Musculoskeletal: No Neurologic: No Psychiatric: No Reproductive: No Respiratory: Yes Immunizations Current: Yes Thyroid Disease: Yes : 1 Para: 1 Past Surgical History Eye Surgery: Yes Gynecologic Surgery: Yes (flaca) Hysterectomy: Yes (CERVICAL CA) Thoracic Surgery: Yes (CHEST TUBES) Social History Alcohol Use: No Tobacco Use: No Substance Use: No Allergies-Medications (Allergen,Severity, Reaction): Uncoded Allergies: ADHESIVE TAPE (Adverse Reaction, Mild, SKIN IRRITATION, 06/10/16) Reported Meds & Prescriptions Reported Meds & Active Scripts Active Oxycodone (Oxycodone HCl) 5 Mg Tab 5 Mg PO Q4H PRN Medrol Dosepak (Methylprednisolone) 4 Mg Dspk 4 Mg PO DIRECTED Per Pharmacist direction Reported B12 (Cyanocobalamin) 1,000 Mcg Tab 1 Tab PO BID Iron (Ferrous Sulfate) 28 Mg Tab 1 Tab PO DAILY Daliresp (Roflumilast) 500 Mcg Tab 500 Mcg PO DAILY Aspirin 81 (Aspirin) 81 Mg Tabdr 81 Mg PO DAILY Opcon-A 0.027-0.315 % (Naphazoline W/ Pheniramine) 1 Laura Laura PRN Clobetasol Topical (Clobetasol Propionate) 0.05% Cream 1 Applic TOPICAL BID PRN Niacin 500 Mg Tab 500 Mg PO DAILY Magnesium 500 Mg Tab 1,000 Mg PO DAILY Nasonex Nasal [place] (Mometasone Furoate) 50 Mcg/Act Naspr 2 [place] EACH NARE DAILY PRN Omeprazole 20 Mg Tab 20 Mg PO DAILY Synthroid (Levothyroxine Sodium) 100 Mcg Tab 100 Mcg PO DAILY Hydrochlorothiazide 50 Mg Tab 50 Mg PO DAILY Amlodipine (Amlodipine Besylate) 5 Mg Tab 5 Mg PO DAILY Spiriva Respimat Inh (Tiotropium Inh) 2.5 Mcg/Act Aero 2 Puff INH DAILY 2.5 mcg = 1 inhalation Advair Diskus Inh (Fluticasone-Salmeterol Inh) 250-50 Mcg/Blist Aer 2 Puff INH BID Rinse mouth after use. Review of Systems General / Constitutional: No: Fever Eyes: No: Visual changes HENT: No: Headaches Cardiovascular: No: Chest Pain or Discomfort Respiratory: Positive: Cough, Shortness of Breath Gastrointestinal: No: Abdominal Pain Genitourinary: No: Dysuria Musculoskeletal: No: Pain Skin: No Rash Neurologic: No: Weakness Psychiatric: No: Depression Endocrine: No: Polydipsia Hematologic/Lymphatic: No: Easy Bruising Physical Exam Narrative GENERAL: Well-nourished, well-developed patient who is short of breath. SKIN: Warm and dry. HEAD: Atraumatic. Normocephalic. EYES: Pupils equal and round. No scleral icterus. No injection or drainage. ENT: No nasal bleeding or discharge. Mucous membranes pink and moist. NECK: Trachea midline. No JVD. CARDIOVASCULAR: Regular rate and rhythm. No murmur appreciated. RESPIRATORY: no accessory muscle use. Clear to auscultation. I don't hear any wheezing or crackles. Difficult to ascertain whether there is any diminishment of breath sounds on the right side as compared to the left, there isn't any obvious discrepancy. GASTROINTESTINAL: Abdomen soft, non-tender, nondistended. Hepatic and splenic margins not palpable. MUSCULOSKELETAL: No obvious deformities. No clubbing. No cyanosis. No edema. Examination the chest wall reveals a 1.5 cm incision in the right anterior axillary line with chest tube dressing over it. NEUROLOGICAL: Awake and alert. No obvious cranial nerve deficits. Motor grossly within normal limits. Normal speech. PSYCHIATRIC: Appropriate mood and affect; insight and judgment normal. Data Data Last Documented VS Vital Signs Date Time Temp Pulse Resp B/P Pulse Ox O2 Delivery O2 Flow Rate FiO2 06/15/16 09:21 89 24 149/67 99 Nasal Cannula 3 06/15/16 08:03 97.6 Orders Chest, Single Ap (06/15/16 ) Iv Access Insert/Monitor (06/15/16 08:07) Complete Blood Count With Diff (06/15/16 08:07) Basic Metabolic Panel (Bmp) (06/15/16 08:07) Oxygen Administration (06/15/16 08:07) Test Rider / Telemetry MOUSTAPHA.Q8H (06/15/16 08:07) Labs Laboratory Tests Test 06/15/16 08:19 White Blood Count 11.2 TH/MM3 Red Blood Count 4.39 MIL/MM3 Hemoglobin 11.4 GM/DL Hematocrit 34.6 % Mean Corpuscular Volume 78.9 FL Mean Corpuscular Hemoglobin 26.0 PG Mean Corpuscular Hemoglobin 32.9 % Concent Red Cell Distribution Width 14.9 % Platelet Count 319 TH/MM3 Mean Platelet Volume 7.7 FL Neutrophils (%) (Auto) 79.8 % Lymphocytes (%) (Auto) 10.5 % Monocytes (%) (Auto) 8.4 % Eosinophils (%) (Auto) 1.0 % Basophils (%) (Auto) 0.3 % Neutrophils # (Auto) 8.9 TH/MM3 Lymphocytes # (Auto) 1.2 TH/MM3 Monocytes # (Auto) 0.9 TH/MM3 Eosinophils # (Auto) 0.1 TH/MM3 Basophils # (Auto) 0.0 TH/MM3 CBC Comment AUTO DIFF Differential Comment AUTO DIFF CONFIRMED Toxic Vacuolation Platelet Estimate NORMAL Platelet Morphology Comment NORMAL MDM Medical Decision Making Medical Screen Exam Complete: Yes Emergency Medical Condition: Yes Medical Record Reviewed: Yes Differential Diagnosis Recurrent pneumothorax, COPD, pneumonia Narrative Course I have reviewed the patient's electronic medical record. Reviewed admission history and physical from June 09, 2016. Reviewed her first and last chest x- ray as well IV placed I reviewed her EKG which shows sinus rhythm without ST elevation or ectopy Extended cardiac monitoring reveals sinus rhythm without ectopy I reviewed her chest x-ray which shows no pneumothorax. There is some subcutaneous air in the right chest wall. CBC shows some minor anemia I took her off nonrebreather and put her on her usual 3 L nasal cannula. 30 minutes later she is still saturating 100%. She looks comfortable and does not look short of breath at all. Reviewed the case in detail with supervisor cell maintenance Dr. Fields who was following her in the hospital. Given that her chest tube site is gaping open we discussed closing it with a couple of sutures. He thought this was a good idea. It is not something that typically needs to be done but in this case given her subcutaneous air and prior dyspnea we thought it appropriate. I discussed with the patient who agreed. LACERATION LOCATION: Right chest wall LENGTH: 1.5 cm NUMBER OF STITCHES/SMOOTH: 2 REPAIR: The area of the laceration was cleaned and draped. No anesthesia was needed is only 2 sutures were placed. The wound was closed using 3-0 Vicryl. This was a single layer repair. A sterile dressing was applied. This consisted of Vaseline gauze directly on the wound followed by 4 x 4's and secured with Coban. The patient was advised to keep the dressing clean and dry. Patient tolerated the procedure well. Diagnosis Primary Impression: Shortness of breath Additional Impression: Subcutaneous emphysema following procedure Qualified Code: T81.82XA - Subcutaneous emphysema following procedure, initial encounter Additional Instructions: Follow-up with your primary physician Rest, limit activity for a few days Med/Other Pt SpecificInfo: Other Disposition: 01 DISCHARGE HOME Condition: Stable Javier Orr MD Jun 15, 2016 08:17
--- NOTE | 2016-06-15 08:29 | RADRPT ---
EXAM DATE/TIME: 06/15/2016 08:20 [facility] COMPARISON: CHEST SINGLE AP, June 13, 2016, 19:35. INDICATIONS : Short of breath, prior pneumothorax right side. Right side chest pains. MEDICAL HISTORY : Pneumothorax SURGICAL HISTORY : Right side chest tube. ENCOUNTER: Initial ACUITY: 1 day PAIN SCORE: 8/10 LOCATION: Right chest FINDINGS: A single view of the chest demonstrates diffuse interstitial densities. Calcified mediastinal and hil ar lymphadenopathy. Lungs are hyperinflated. The cardiomediastinal contours are unremarkable. [place] structures are intact. Right lateral subcutaneous emphysema. CONCLUSION: 1. No pneumothorax. Deon Neal MD on June 15, 2016 at 8:26 Board Certified Radiologist. This report was verified electronically.
[2016-06-15 08:33] LABS: AUTOMATED NEUTROPHIL # 8.9 TH/MM3 (1.8-7.7); BASOPHIL % 0.3 % (0.0-2.0); EOSINOPHIL # 0.1 TH/MM3 (0-0.4); HEMATOCRIT 34.6 % (35.0-46.0); LYMPH % 10.5 % (9.0-44.0); LYMPHOCYTE # 1.2 TH/MM3 (1.0-4.8); MEAN CELL VOLUME 78.9 FL (80.0-100.0); MEAN CORPUSCULAR HGB CONC 32.9 % (32.0-36.0); MONO % 8.4 % (0.0-8.0); NEUT % 79.8 % (16.0-70.0); PLATELET COUNT 319 TH/MM3 (150-450); RED BLOOD COUNT 4.39 MIL/MM3 (4.00-5.30); RED CELL DISTRIBUTION WIDTH 14.9 % (11.6-17.2); WHITE BLOOD COUNT 11.2 TH/MM3 (4.0-11.0)
[2016-06-15 08:37] LABS: HEMO FLAGS AUTO DIFF
[2016-06-15 09:03] LABS: PLATELET ESTIMATE SMEAR NORMAL (NORMAL); PLATELET MORPHOLOGY NORMAL (NORMAL); SCAN/DIFF AUTO DIFF CONFIRMED; TOXIC VACUOLATION ND (NONE SEEN)
[2016-06-15 09:21] VITALS: BP 149/67; PULSE 89; RESP 24; O2SAT 99
--- NOTE | 2016-06-15 12:27 | EKG ---
Date Performed: 06/15/2016 Time Performed: 08:11:28 PTAGE: 71 years EKG: SINUS TACHYCARDIA SEPTAL MYOCARDIAL INFARCTION ABNORMAL ECG No significant change from prio r electrocardiogram. PREVIOUS TRACING : 06/09/2016 21.13 DOCTOR: Albino Tirado Interpretating Date/Time 06/15/2016 12:26:28
== END 2016-06-15 10:09 | disposition home or self-care (01) ==
LOC: NEPE 08:00
DX: R06.02 Shortness of breath (principal); T81.82XA Emphysema (subcutaneous) resulting from a procedure, initial encounter; T81.89XA Other complications of procedures, not elsewhere classified, initial encounter; Y83.8 Other surgical procedures as the cause of abnormal reaction of the patient, or of later complication, without mention of misadventure at the time of the procedure; Y92.239 Unspecified place in hospital as the place of occurrence of the external cause; I10 Essential (primary) hypertension; J44.9 Chronic obstructive pulmonary disease, unspecified
CPT/HCPCS: 12001; 71010; 85025; 93005

== ENCOUNTER 2016-06-15 20:12 | Inpatient (IN) | payer MEDICARE ==
[~2016-06-15] VITALS: Ht 165.1 cm; Wt 88.7 kg
[~2016-06-15 20:12] MED LIST changes: +CYAN1TAB24 PO; +IRON28TA PO
[2016-06-15 20:13] VITALS: PULSE 115; RESP 20; TEMP 97.5; O2SAT 98
--- NOTE | 2016-06-15 20:25 | PD ---
HPI Chief Complaint: short of breath Time Seen by Provider: 20:16 Travel History International Travel<30 days: No Contact w/Intl Traveler<30days: No Traveled to known affect area: No History of Present Illness HPI 71-year-old female presents to the emergency department by EMS transport from home for evaluation of increasing shortness of breath. Patient has history of COPD. Patient was discharged from the hospital yesterday 06/14/16 after being admitted 06/09/16 with acute respiratory failure exacerbation COPD and spontaneous right-sided pneumothorax. Patient was seen earlier today 06/15/16 for possible air leak and had sutures placed at site of previous chest tube. Chest x-ray this morning did not show any evidence of recurrent pneumothorax. Patient states that she was treated with antibiotic in the hospital but is not aware of taking an oral antibiotic. Patient's had no fever chills. Patient noted increasing shortness of breath and upon EMS arrival was noted to have diminished breath sounds bilaterally right greater than left however according to EMS reports symptoms have improved and breath sounds have improved after updraft treatment en route to the hospital. Patient presently reports that she is improved and is able to relay her own history. Patient remains tachycardic after updraft treatments and reports that she has a history of chronic tachycardia that reportedly is scheduled to be further evaluated and worked up by her primary care provider back home where she lives in [place]. No report of fever no report of hemoptysis. No report of lower extremity pain or swelling. PFSH Past Medical History Narrative Medical Breast cancer, COPD, pneumothorax, tachycardia, hypertension, thyroid dysfunction, hysterectomy, thoracostomy tube insertion, no tobacco use nursing notes reviewed Cancer: Yes (CANCER breast, cervix, skin) Cardiovascular Problems: Yes COPD: Yes Endocrine: Yes Genitourinary: Yes Hypertension: Yes Immune Disorder: No Implanted Vascular Access Dvce: No Musculoskeletal: No Neurologic: No Psychiatric: No Reproductive: No Respiratory: Yes Immunizations Current: Yes Thyroid Disease: Yes : 1 Para: 1 Past Surgical History Eye Surgery: Yes Gynecologic Surgery: Yes (flaca) Hysterectomy: Yes (CERVICAL CA) Thoracic Surgery: Yes (CHEST TUBES) Social History Alcohol Use: No Tobacco Use: No Substance Use: No Allergies-Medications (Allergen,Severity, Reaction): Uncoded Allergies: ADHESIVE TAPE (Adverse Reaction, Mild, SKIN IRRITATION, 06/10/16) Reported Meds & Prescriptions Reported Meds & Active Scripts Active Oxycodone (Oxycodone HCl) 5 Mg Tab 5 Mg PO Q4H PRN Medrol Dosepak (Methylprednisolone) 4 Mg Dspk 4 Mg PO DIRECTED Per Pharmacist direction Reported B12 (Cyanocobalamin) 1,000 Mcg Tab 1 Tab PO BID [place] (Ferrous Sulfate) 28 Mg Tab 1 Tab PO DAILY Daliresp (Roflumilast) 500 Mcg Tab 500 Mcg PO DAILY Aspirin 81 (Aspirin) 81 Mg Tabdr 81 Mg PO DAILY Opcon-A 0.027-0.315 % (Naphazoline W/ Pheniramine) 1 Laura Laura PRN Clobetasol Topical (Clobetasol Propionate) 0.05% Cream 1 Applic TOPICAL BID PRN Niacin 500 Mg Tab 500 Mg PO DAILY Magnesium 500 Mg Tab 1,000 Mg PO DAILY Nasonex Nasal [place] (Mometasone Furoate) 50 Mcg/Act Naspr 2 [place] EACH NARE DAILY PRN Omeprazole 20 Mg Tab 20 Mg PO DAILY Synthroid (Levothyroxine Sodium) 100 Mcg Tab 100 Mcg PO DAILY Hydrochlorothiazide 50 Mg Tab 50 Mg PO DAILY Amlodipine (Amlodipine Besylate) 5 Mg Tab 5 Mg PO DAILY Spiriva Respimat Inh (Tiotropium Inh) 2.5 Mcg/Act Aero 2 Puff INH DAILY 2.5 mcg = 1 inhalation Advair Diskus Inh (Fluticasone-Salmeterol Inh) 250-50 Mcg/Blist Aer 2 Puff INH BID Rinse mouth after use. Review of Systems Except as stated in HPI: all other systems reviewed are Neg General / Constitutional: No: Fever, Chills HENT: No: Congestion Cardiovascular: Positive: Chest Pain or Discomfort Respiratory: Positive: Shortness of Breath, Wheezing Gastrointestinal: No: Abdominal Pain Genitourinary: No: Flank Pain Musculoskeletal: No: Pain Skin: No Rash Neurologic: No: Weakness Psychiatric: Positive: Anxiety Endocrine: No: Heat Intolerance Hematologic/Lymphatic: No: Easy Bruising Physical Exam Narrative GENERAL: Well-developed well-nourished female in no acute distress moderate respiratory distress with sinus tachycardia by quality assurance monitor body SKIN: Warm and dry. HEAD: Normocephalic. EYES: No scleral icterus. No injection or drainage. NECK: Supple, trachea midline. No JVD or lymphadenopathy. CARDIOVASCULAR: Increased Regular rate and rhythm without murmurs, gallops, or rubs. RESPIRATORY: Breath sounds equal bilaterally diminished right greater than left. No accessory muscle use. GASTROINTESTINAL: Abdomen soft, non-tender, nondistended. MUSCULOSKELETAL: No cyanosis, or edema. BACK: Nontender without obvious deformity. No CVA tenderness. Data Data Last Documented VS Vital Signs Date Time Temp Pulse Resp B/P Pulse Ox O2 Delivery O2 Flow Rate FiO2 06/15/16 21:29 108 20 106/55 98 Nasal Cannula 06/15/16 20:20 3 06/15/16 20:13 97.5 Orders Chest, Single Ap (06/15/16 ) Complete Blood Count With Diff (06/15/16 20:18) Prothrombin Time / Inr (Pt) (06/15/16 20:18) Act Partial Throm Time (Ptt) (06/15/16 20:18) Basic Metabolic Panel (Bmp) (06/15/16 20:18) Chest, Pa & Lat (06/15/16 ) Blood Culture (06/15/16 22:06) Cefepime Inj (Maxipime Inj) (06/15/16 22:15) Vancomycin Inj (Vancomycin Inj) (06/15/16 22:15) Lactic Acid (06/15/16 22:06) Admit Order (Ed Use Only) (06/15/16 ) ^ Saline Lock (06/15/16 22:29) Resp Oxygen Jose D C Titrat 1-4 L (06/15/16 ) ^ Notify Dr: Other (06/15/16 22:29) Sodium Chloride 0.9% Flush (Ns Flush) (06/16/16 09:00) Sodium Chloride 0.9% Flush (Ns Flush) (06/15/16 22:30) Labs Laboratory Tests Test 06/15/16 20:30 White Blood Count 11.7 TH/MM3 Red Blood Count 4.87 MIL/MM3 Hemoglobin 12.6 GM/DL Hematocrit 38.7 % Mean Corpuscular Volume 79.3 FL Mean Corpuscular Hemoglobin 25.9 PG Mean Corpuscular Hemoglobin 32.6 % Concent Red Cell Distribution Width 15.2 % Platelet Count 289 TH/MM3 Mean Platelet Volume 7.3 FL Neutrophils (%) (Auto) 84.7 % Lymphocytes (%) (Auto) 10.2 % Monocytes (%) (Auto) 3.9 % Eosinophils (%) (Auto) 1.0 % Basophils (%) (Auto) 0.2 % Neutrophils # (Auto) 9.9 TH/MM3 Lymphocytes # (Auto) 1.2 TH/MM3 Monocytes # (Auto) 0.5 TH/MM3 Eosinophils # (Auto) 0.1 TH/MM3 Basophils # (Auto) 0.0 TH/MM3 CBC Comment AUTO DIFF Differential Total Cells 100 Counted Neutrophils % (Manual) 81 % Band Neutrophils % 6 % Lymphocytes % 9 % Monocytes % 2 % Eosinophils % 1 % Neutrophils # (Manual) 10.3 TH/MM3 Metamyelocytes 1 % Differential Comment FINAL DIFF MANUAL Atypical Lymphocytes % Toxic Vacuolation PRESENT Platelet Estimate NORMAL Prothrombin Time 10.5 SEC Prothromb Time International 1.0 RATIO Ratio Activated Partial 22.0 SEC Thromboplast Time Sodium Level 138 MEQ/L Potassium Level 3.3 MEQ/L Chloride Level 94 MEQ/L Carbon Dioxide Level 35.1 MEQ/L Anion Gap 9 MEQ/L Blood Urea Nitrogen 19 MG/DL Creatinine 0.93 MG/DL Estimat Glomerular Filtration 59 ML/MIN Rate Random Glucose 106 MG/DL Calcium Level 8.2 MG/DL [facility] Medical Decision Making Medical Screen Exam Complete: Yes Emergency Medical Condition: Yes Medical Record Reviewed: Yes Interpretation(s) Last Impressions Chest X-Ray 06/15/16 0000 Signed Impressions: Service Date/Time: Wednesday, June 15, 2016 21:50 - CONCLUSION: Worsening left lower lobe density. There does appear to be a tiny right apical pneumothorax measuring 4 mm pleural separation. Deon Neal MD Chest X-Ray 06/15/16 0000 Signed Impressions: Service Date/Time: Wednesday, June 15, 2016 20:23 - CONCLUSION: 1. Hyperinflation and bibasilar densities greater left lower lobe. 2. Subcutaneous emphysema on the right. 3. Possible pneumomediastinum. Deon Neal MD CBC & BMP Diagram 06/15/16 20:30 Vital Signs Date Time Temp Pulse Resp B/P Pulse Ox O2 Delivery O2 Flow Rate FiO2 06/15/16 21:29 108 20 106/55 98 Nasal Cannula 06/15/16 20:20 99 Nasal Cannula 3 06/15/16 20:13 97.5 115 20 98 Differential Diagnosis Recurrent pneumothorax, exacerbation COPD, pneumonia, PE Narrative Course Stat chest x-ray ordered; IV access present placed by EMS specimens collected and sent for resulting patient continued on supplemental oxygen nasal cannula 3 L/m at this time patient sitting upright smiling conversant and appears somewhat comfortable. Physician Communication Physician Communication discussed with Dr Fields; discussed with Dr Lara --will accept for admission to the ICU Diagnosis Primary Impression: Pneumothorax, right Additional Impressions: Pneumomediastinum Lung infiltrate COPD with exacerbation Hypokalemia Admitting Information Admitting Physician Requests: Admit Emily Vasquez MD Jun 15, 2016 20:25
[2016-06-15 20:42] LABS: AUTOMATED NEUTROPHIL # 9.9 TH/MM3 (1.8-7.7); BASOPHIL % 0.2 % (0.0-2.0); EOSINOPHIL # 0.1 TH/MM3 (0-0.4); HEMATOCRIT 38.7 % (35.0-46.0); LYMPH % 10.2 % (9.0-44.0); LYMPHOCYTE # 1.2 TH/MM3 (1.0-4.8); MEAN CELL VOLUME 79.3 FL (80.0-100.0); MEAN CORPUSCULAR HEMOGLOBIN 25.9 PG (27.0-34.0); MEAN CORPUSCULAR HGB CONC 32.6 % (32.0-36.0); MONO % 3.9 % (0.0-8.0); NEUT % 84.7 % (16.0-70.0); PLATELET COUNT 289 TH/MM3 (150-450); RED BLOOD COUNT 4.87 MIL/MM3 (4.00-5.30); RED CELL DISTRIBUTION WIDTH 15.2 % (11.6-17.2); WHITE BLOOD COUNT 11.7 TH/MM3 (4.0-11.0)
[2016-06-15 20:44] LABS: HEMO FLAGS AUTO DIFF
[2016-06-15 20:55] LABS: PROTHROMBIN TIME - PATIENT 10.5 SEC (9.8-11.6)
[2016-06-15 20:58] LABS: BICARBONATE 35.1 MEQ/L (21.0-32.0); POTASSIUM 3.3 MEQ/L (3.5-5.1)
--- NOTE | 2016-06-15 21:01 | RADRPT ---
EXAM DATE/TIME: 06/15/2016 20:23 [facility] COMPARISON: CHEST SINGLE AP, June 15, 2016, 8:20. INDICATIONS : Shortness of breath with any activity, at rest none. MEDICAL HISTORY : None. SURGICAL HISTORY : None. ENCOUNTER: Initial ACUITY: 1 day PAIN SCORE: 0/10 LOCATION: Right chest FINDINGS: A single view of the chest demonstrates hyperinflation bibasilar densities. Subcutaneous emphysema al abi the right chest. There may be pneumomediastinum as well. Calcified mediastinal and hilar adenopat hy. Osseous structures are intact. CONCLUSION: 1. Hyperinflation and bibasilar densities greater left lower lobe. 2. Subcutaneous emphysema on the right. 3. Possible pneumomediastinum. Deon Neal MD on June 15, 2016 at 20:59 Board Certified Radiologist. This report was verified electronically.
[2016-06-15 21:15] LABS: BANDS 6 % (0-6); EOSINOPHILS 1 % (0-4); METAMYELOCYTES 1 % (0-1); NEUTROPHIL # MANUAL DIFF 10.3 TH/MM3 (1.8-7.7); POLYS (SEG NEUTROPHILS) 81 % (16-70); WBC DIFF SAMPLE 100
[2016-06-15 21:18] LABS: PLATELET ESTIMATE SMEAR NORMAL (NORMAL); TOXIC VACUOLATION PRESENT (NONE SEEN)
[2016-06-15 21:19] LABS: SCAN/DIFF FINAL DIFF MANUAL
[2016-06-15 21:29] VITALS: BP 106/55; PULSE 108; RESP 20; O2SAT 98
--- NOTE | 2016-06-15 22:02 | RADRPT ---
EXAM DATE/TIME: 06/15/2016 21:50 [facility] COMPARISON: CHEST SINGLE AP, June 15, 2016, 20:23. INDICATIONS : Short of breath. MEDICAL HISTORY : None. SURGICAL HISTORY : None. ENCOUNTER: Subsequent ACUITY: 4 - 6 days PAIN SCORE: 8/10 LOCATION: Bilateral chest FINDINGS: PA and lateral views of the chest demonstrate hyperinflation with bibasilar densities greater in the left lower lobe. Heart normal in size. Mediastinal and hilar calcified adenopathy. Extensive subcutan eous emphysema on the right. There does appear to be pneumomediastinum. Small right apical pneumothor ax which is 4 mm of pleural separation. No mediastinal shift. Osseous structures are intact. CONCLUSION: Worsening left lower lobe density. There does appear to be a tiny right apical pneumothorax measuring 4 mm pleural separation. Deon Neal MD on June 15, 2016 at 21:58 Board Certified Radiologist. This report was verified electronically.
[2016-06-15] MEDS ORDERED: VANCOMYCIN INJ 1,250 MG in SODIUM CHLOR 0.9% 250 ML INJ 250 ML IV ONE (22:15)
[2016-06-15] MEDS ORDERED: CEFEPIME INJ 2,000 MG in SODIUM CHLORIDE 0.9% INJ 100 ML IV ONE (22:15)
[2016-06-15 22:20] VITALS: BP 110/58; PULSE 90; RESP 20; O2SAT 96
[2016-06-15] MEDS ORDERED: SODIUM CHLORIDE 0.9% FLUSH 5 ML FLUSH IVF PRN (22:30)
[2016-06-15 22:38] VITALS: O2SAT 95
[2016-06-15] MEDS ORDERED: POTASSIUM CHLORIDE 20 MEQ CONTROLLED RELEASE TAB PO ONE (22:45)
--- NOTE | 2016-06-15 23:10 | HHI.HP ---
HPI Service Critical Care Medicine Primary Care Physician Non-Staff Admission Diagnosis R 4 mm pneumothorax/pneumomediastinum; LLL infiltrate; COPD Diagnosis: Travel History International Travel<30 Days: No Contact w/Intl Traveler <30 Da: No Traveled to Known Affected Are: No History of Present Illness 71-year-old female just discharged from the hospital yesterday 06/14/16 after being admitted 06/09/16 with acute respiratory failure exacerbation COPD and spontaneous right-sided pneumothorax. Patient was seen earlier today 06/15/16 for possible air leak and had sutures placed at site of previous chest tube. She presents to the emergency department by EMS transport from home for evaluation of increasing shortness of breath. Review of Systems Constitutional: DENIES: Diaphoretic episodes, Fatigue, Fever, Weight gain, Weight loss, Chills, Dizziness, Change in appetite, Night Sweats Endocrine: DENIES: Abnorml menstrual pattern, Heat/cold intolerance, Polydipsia , Polyuria, Polyphagia Eyes: DENIES: Blurred vision, Diplopia, Eye inflammation, Eye pain, Vision loss , Photosensitivity, Double Vision Ears, nose, mouth, throat: DENIES: Tinnitus, Hearing loss, Vertigo, Nasal discharge, Oral lesions, Throat pain, Hoarseness, Ear Pain, Running Nose, Epistaxis, Sinus Pain, Toothache, Odynophagia Respiratory: COMPLAINS OF: Shortness of breath, DENIES: Apneas, Cough, Snoring , Wheezing, Hemoptysis, Sputum production Cardiovascular: DENIES: Chest pain, Palpitations, Syncope, Dyspnea on Exertion , PND, Lower Extremity Edema, Orthopnea, Claudication Gastrointestinal: DENIES: Abdominal pain, Black stools, Bloody stools, Constipation, Diarrhea, Nausea, Vomiting, Difficulty Swallowing, Anorexia Genitourinary: DENIES: Abnormal vaginal bleeding, Dysmenorrhea, Dyspareunia, Sexual dysfunction, Urinary frequency, Urinary incontinence, Urgency, Hematuria , Dysuria, Nocturia, Vaginal discharge Musculoskeletal: DENIES: Joint pain, Muscle aches, Stiffness, Joint Swelling, Back pain, Neck pain Integumentary: DENIES: Abnormal pigmentation, Pruritus, Rash, Nail changes, Breast masses, Breast skin changes, Nipple discharge Hematologic/lymphatic: DENIES: Bruising, Lymphadenopathy Immunologic/allergic: DENIES: Eczema, Urticaria Neurologic: DENIES: Abnormal gait, Headache, Localized weakness, Paresthesias, Seizures, Speech Problems, Tremor, Poor Balance Psychiatric: DENIES: Anxiety, Confusion, Mood changes, Depression, Hallucinations, Agitation, Suicidal Ideation, Homicidal Ideation, Delusions Past Family Social History Allergies: Uncoded Allergies: ADHESIVE TAPE (Adverse Reaction, Mild, SKIN IRRITATION, 06/10/16) Past Medical History COPD Hypertension Past Surgical History Hysterectomy Reported Medications Reported Meds & Active Scripts Active Oxycodone (Oxycodone HCl) 5 Mg Tab 5 Mg PO Q4H PRN Medrol Dosepak (Methylprednisolone) 4 Mg Dspk 4 Mg PO DIRECTED Per Pharmacist direction Reported B12 (Cyanocobalamin) 1,000 Mcg Tab 1 Tab PO BID Iron (Ferrous Sulfate) 28 Mg Tab 1 Tab PO DAILY Daliresp (Roflumilast) 500 Mcg Tab 500 Mcg PO DAILY Aspirin 81 (Aspirin) 81 Mg Tabdr 81 Mg PO DAILY Opcon-A 0.027-0.315 % (Naphazoline W/ Pheniramine) 1 Laura Laura PRN Clobetasol Topical (Clobetasol Propionate) 0.05% Cream 1 Applic TOPICAL BID PRN Niacin 500 Mg Tab 500 Mg PO DAILY Magnesium 500 Mg Tab 1,000 Mg PO DAILY Nasonex Nasal [place] (Mometasone Furoate) 50 Mcg/Act Naspr 2 [place] EACH NARE DAILY PRN Omeprazole 20 Mg Tab 20 Mg PO DAILY Synthroid (Levothyroxine Sodium) 100 Mcg Tab 100 Mcg PO DAILY Hydrochlorothiazide 50 Mg Tab 50 Mg PO DAILY Amlodipine (Amlodipine Besylate) 5 Mg Tab 5 Mg PO DAILY Spiriva Respimat Inh (Tiotropium Inh) 2.5 Mcg/Act Aero 2 Puff INH DAILY 2.5 mcg = 1 inhalation Advair Diskus Inh (Fluticasone-Salmeterol Inh) 250-50 Mcg/Blist Aer 2 Puff INH BID Rinse mouth after use. Active Ordered Medications Current Medications Medications (Trade) Dose Ordered Sig/Christina Route PRN Reason Start Time Stop Time Status Last Admin Dose Admin Amlodipine Besylate (Norvasc) 5 mg DAILY PO 06/16/16 09:00 Aspirin (Ecotrin Ec) 81 mg DAILY PO 06/16/16 09:00 Hydrochlorothiazide (Hydrodiuril) 50 mg DAILY PO 06/16/16 09:00 Levothyroxine Sodium (Synthroid) 100 mcg DAILY@0600 PO 06/16/16 06:00 Fluticasone Propionate (Flonase Jose D Spr) 2 spray DAILY PRN EACH NARE NASAL CONGESTION AND/OR COUGH 06/15/16 23:15 Oxycodone HCl (Roxicodone) 5 mg Q4H PRN PO pain 1-7 06/15/16 23:15 Roflumilast (Daliresp) 500 mcg DAILY PO 06/16/16 09:00 Betamethasone Dipropionate (Diprosone 0.05% Cream) APPLY TO RASH BID PRN TOPICAL RASH 06/15/16 23:45 Ferrous Sulfate (Ferrous Sulfate) 325 mg DAILY PO 06/16/16 09:00 Budesonide/ Formoterol Fumarate (Symbicort 160-4.5 Inh) 2 puff BID INH 06/16/16 09:00 Patient Own Medication PT OWN MED: Magnes... DAILY PO NS 06/16/16 09:00 Future Hold Niacin (Slo-Niacin) 500 mg DAILY PO 06/16/16 09:00 Pantoprazole Sodium (Protonix) 20 mg DAILY PO 06/16/16 09:00 Patient Own Medication PT OWN MED: Tiotrop... DAILY INH COPD 06/16/16 09:00 Future Hold Sodium Chloride (NS 1000 ml Inj) 1,000 ml @ 84 mls/hr [id number] IV 06/15/16 23:06 06/16/16 00:19 IV Flush (NS Flush) 2 ml UNSCH PRN IV FLUSH FLUSH AFTER USING IV ACCESS 06/15/16 23:15 IV Flush (NS Flush) 2 ml BID IV FLUSH 06/16/16 09:00 Acetaminophen (Tylenol) 650 mg Q6H PRN PO PAIN 1-10 AND/OR FEVER >101F 06/15/16 23:15 Ondansetron HCl (Zofran Inj) 4 mg Q6H PRN IV NAUSEA OR VOMITING 06/15/16 23:15 Metoclopramide HCl (Reglan Inj) 10 mg Q6H PRN IV NAUSEA OR VOMITING 06/15/16 23:15 Docusate Sodium (Colace) 100 mg BID PO 06/16/16 09:00 Zolpidem Tartrate (Ambien) 5 mg HS PRN PO INSOMNIA 06/15/16 23:15 Miscellaneous Information 1 [id number] XX 06/15/16 23:15 Chlorhexidine Gluconate (Chlorhexidine 2% Cloth) 3 pack Taper DAILY@04 TOP 06/16/16 04:00 06/12/17 03:59 Chlorhexidine Gluconate 3 pack 3 pack UNSCH PRN TOP HYGIENIC CARE 06/15/16 23:15 Potassium Chloride 100 ml @ 50 mls/hr Q2H PRN IV For Potassium 2.8 - 3.2 mEq/L 06/16/16 00:30 Potassium Chloride 100 ml @ 50 mls/hr Q2H PRN IV For Potassium 2.8 - 3.2 mEq/L 06/16/16 00:30 Potassium Chloride 100 ml @ 25 mls/hr UNSCH PRN IV For Potassium 3.3 - 3.5 mEq/L 06/16/16 00:30 Potassium Chloride 100 ml @ 50 mls/hr Q2H PRN IV For Potassium 3.3 - 3.5 mEq/L 06/16/16 00:30 Magnesium Sulfate/ Sodium Chloride (Magnesium Sulfate Inj/NS Inj) 100 ml @ 50 mls/hr UNSCH PRN IV For Magnesium 0.9 - 1.1 mg/dL 06/16/16 00:30 Magnesium Oxide 800 mg 800 mg UNSCH PRN PO For Magnesium 1.2 - 1.6 mg/dL 06/16/16 00:30 Magnesium Sulfate/ Sodium Chloride (Magnesium Sulfate Inj/NS Inj) 100 ml @ 50 mls/hr UNSCH PRN IV For Magnesium 1.2 - 1.6 mg/dL 06/16/16 00:30 Potassium Phosphate 2000 mg 2,000 mg Q4H PRN PO For Phosphorus < 2.5 mg/dL 06/16/16 00:30 Sodium Phosphate/ Sodium Chloride (Sodium Phosphate Inj/NS 250 ml Inj) 250 ml @ 42 mls/hr UNSCH PRN IV For Phosphorus < 2.5 mg/dL 06/16/16 00:30 Potassium Phosphate 2000 mg 2,000 mg UNSCH PRN PO/TUBE SEE LABEL COMMENTS 06/16/16 00:30 Potassium Phosphate/Sodium Chloride (Potassium Phosphate Inj/NS 250 ml Inj) 260 ml @ 42 mls/hr UNSCH PRN IV SEE LABEL COMMENTS 06/16/16 00:30 Family History Noncontributory Social History Negative 3 Physical Exam Vital Signs Vital Signs Date Time Temp Pulse Resp B/P Pulse Ox O2 Delivery O2 Flow Rate FiO2 06/15/16 22:38 95 Nasal Cannula 2.00 06/15/16 21:29 108 20 106/55 98 Nasal Cannula 06/15/16 20:20 99 Nasal Cannula 3 06/15/16 20:13 97.5 115 20 98 Physical Exam GENERAL: Well-nourished, well-developed patient. Elderly obese female SKIN: Warm and dry. HEAD: Normocephalic. EYES: No scleral icterus. No injection or drainage. NECK: Supple, trachea midline. No JVD or lymphadenopathy. CARDIOVASCULAR: Regular rate and rhythm without murmurs, gallops, or rubs. RESPIRATORY: Breath sounds equal bilaterally. No accessory muscle use. GASTROINTESTINAL: Abdomen soft, non-tender, nondistended. MUSCULOSKELETAL: No cyanosis, or edema. BACK: Nontender without obvious deformity. No CVA tenderness. EXTREMITIES: No clubbing cyanosis or edema Laboratory Laboratory Tests Test 06/15/16 20:30 White Blood Count 11.7 Red Blood Count 4.87 Hemoglobin 12.6 Hematocrit 38.7 Mean Corpuscular Volume 79.3 Mean Corpuscular Hemoglobin 25.9 Mean Corpuscular Hemoglobin 32.6 Concent Red Cell Distribution Width 15.2 Platelet Count 289 Mean Platelet Volume 7.3 Neutrophils (%) (Auto) 84.7 Lymphocytes (%) (Auto) 10.2 Monocytes (%) (Auto) 3.9 Eosinophils (%) (Auto) 1.0 Basophils (%) (Auto) 0.2 Neutrophils # (Auto) 9.9 Lymphocytes # (Auto) 1.2 Monocytes # (Auto) 0.5 Eosinophils # (Auto) 0.1 Basophils # (Auto) 0.0 CBC Comment AUTO DIFF Differential Total Cells 100 Counted Neutrophils % (Manual) 81 Band Neutrophils % 6 Lymphocytes % 9 Monocytes % 2 Eosinophils % 1 Neutrophils # (Manual) 10.3 Metamyelocytes 1 Differential Comment FINAL DIFF MANUAL Atypical Lymphocytes Toxic Vacuolation PRESENT Platelet Estimate NORMAL Prothrombin Time 10.5 Prothromb Time International 1.0 Ratio Activated Partial 22.0 Thromboplast Time Sodium Level 138 Potassium Level 3.3 Chloride Level 94 Carbon Dioxide Level 35.1 Anion Gap 9 Blood Urea Nitrogen 19 Creatinine 0.93 Estimat Glomerular Filtration 59 Rate Random Glucose 106 Calcium Level 8.2 Date/Time Procedure Status Source Growth 06/15/16 22:35 Aerobic Blood Culture Received Blood Peripheral Pending 06/15/16 22:35 Anaerobic Blood Culture Received Blood Peripheral Pending Result Diagram: 06/15/16202906/15/162029 Assessment and Plan Problem List: (1) Respiratory failure ICD Code: J96.90 Status: Acute (2) Subcutaneous emphysema following procedure ICD Code: T81.82XA Status: Acute (3) Shortness of breath ICD Code: R06.02 Status: Acute (4) Pneumomediastinum ICD Code: J98.2 Status: Acute (5) Hypokalemia ICD Code: E87.6 Status: Acute (6) Pneumothorax, right ICD Code: J93.9 Status: Acute (7) COPD (chronic obstructive pulmonary disease) ICD Code: J44.9 Status: Acute Assessment and Plan Respiratory failure - Underlying COPD - No exacerbation - Duonebs - Continue home meds Pneumothorax - CT of the chest without contrast to evaluate for size - Chest tube placement if indicated Subcutaneous emphysema - Due to above - Consider chest tube - Pulmonary consult Hypertension - Hydrochlorothiazide - Norvasc Hypothyroidism - Levothyroxine Hypokalemia - Replacement. Electrolyte ICU protocol DVT GI prophylaxis - Teds SCDs early aggressive mobilization - Omeprazole Critical Care: The total critical care time was 35 minutes. Time to perform other separately billable procedures was not included in the critical care time. Shahzad Lau MD Jun 15, 2016 23:10
[2016-06-15] MEDS ORDERED: MISCELLANEOUS NURSING INFORMATION XX SCH (23:15)
[2016-06-15] MEDS ORDERED: ONDANSETRON HCL 4 MG/2 ML VIAL IV PRN (23:15)
[2016-06-15] MEDS ORDERED: RESP: ALBUTEROL 2.5 MG/IPRATROPIUM 0.5 MG NEB (PRN) INH (23:15)
[2016-06-15] MEDS ORDERED: ACETAMINOPHEN 325 MG TAB PO PRN (23:15)
[2016-06-15] MEDS ORDERED: METOCLOPRAMIDE HCL 10 MG/2 ML VIAL IV PRN (23:15)
[2016-06-15] MEDS ORDERED: CHLORHEXIDINE GLUCONATE 2 % 1 PACK (2 CLOTHS) TOP PRN (23:15)
[2016-06-15] MEDS ORDERED: ZOLPIDEM TARTRATE 5 MG TAB PO PRN (23:15)
[2016-06-15] MEDS ORDERED: SODIUM CHLORIDE 0.9% FLUSH 5 ML FLUSH IV FLUSH PRN (23:15)
[2016-06-15] MEDS ORDERED: FLUTICASONE PROPIONATE 50 MCG/ACT 16 GM NASAL SPRAY EACH NARE PRN (23:15)
[2016-06-15 23:30] VITALS: BP 122/74; PULSE 98; RESP 20; O2SAT 96
[2016-06-15] MEDS ORDERED: BETAMETHASONE DIPROPIONATE 0.05% CREAM 15 GM TOPICAL PRN (23:45)
[2016-06-16] VITALS (18 sets, daily range): BP systolic 111–147; BP diastolic 55–88; PULSE 83–105; RESP 18–20; TEMP 98.1–98.6; O2SAT 92–96
[2016-06-16] MEDS: SODIUM CHLOR 0.9% 1000 ML INJ 1,000 ML IV SCH ×2 (00:19→11:01)
[2016-06-16] MEDS ORDERED: SODIUM PHOSPHATE INJ 30 MMOL in SODIUM CHLOR 0.9% 250 ML INJ 240 ML IV PRN (00:30)
[2016-06-16] MEDS ORDERED: POTASSIUM CHLOR 40 MEQ PREMIX 100 ML IV PRN ×2 (00:30)
[2016-06-16] MEDS ORDERED: MAGNESIUM OXIDE 400 MG TAB PO PRN (00:30)
[2016-06-16] MEDS ORDERED: POTASSIUM PHOSPHATE MONOBASIC 500 MG TAB PO PRN (00:30)
[2016-06-16] MEDS ORDERED: POTASSIUM PHOSPHATE MONOBASIC 500 MG TAB PO/TUBE PRN (00:30)
[2016-06-16] MEDS ORDERED: POTASSIUM PHOSPHATE INJ 30 MMOL in SODIUM CHLOR 0.9% 250 ML INJ 250 ML IV PRN (00:30)
[2016-06-16] MEDS ORDERED: MAGNESIUM SULFATE INJ 2 GM in SODIUM CHLORIDE 0.9% INJ 96 ML IV PRN (00:30)
[2016-06-16] MEDS ORDERED: POTASSIUM CHLOR 20 MEQ PREMIX 100 ML IV PRN ×2 (00:30)
[2016-06-16] MEDS ORDERED: MAGNESIUM SULFATE INJ 4 GM in SODIUM CHLORIDE 0.9% INJ 92 ML IV PRN (00:30)
--- NOTE | 2016-06-16 01:02 | RADRPT ---
EXAM DATE/TIME: 06/16/2016 00:44 [facility] COMPARISON: CHEST PA & LAT, June 15, 2016, 21:50. INDICATIONS : Follow up pneumothorax. RADIATION DOSE: 5.79 CTDIvol (mGy) MEDICAL HISTORY : Carcinoma, breast. Cardiovascular disease Chronic obstructive pulmonary disease. Hypertension SURGICAL HISTORY : Hysterectomy. ENCOUNTER: Subsequent ACUITY: 1 week PAIN SCALE: 5/10 LOCATION: chest TECHNIQUE: Volumetric scanning of the chest was performed. Using automated exposure control and adjustment of t he mA and/or kV according to patient size, radiation dose was kept as low as reasonably achievable to obtain optimal diagnostic quality images. FINDINGS: There is extensive subcutaneous emphysema right greater than left thorax and cervical region. There i s extensive pneumomediastinum. There are calcified granulomas in the spleen, calcified right hilar ad enopathy. Emphysematous changes are noted. There is right apical soft tissue density having the appea irving of a right apical mass measuring 2.9 cm in transverse dimension and a small right sided pneumot horax is seen. This extends from apex to base. There is a nodule in the left upper lobe on axial imag e 34 measuring 9.4 mm. There is a nodule in the left lower lobe measuring 3.9 mm on image 41 as well as a 3.3 mm nodule in 41. Mild atelectatic changes are seen bilaterally. Right middle lobe noncalcifi ed nodule measuring 5.3 mm on image 43 and additional tiny right upper lobe nodules are present. Athe rosclerotic calcification of the aorta and coronary arteries. There is a small hydropneumothorax seen on the right. Osseous structures are intact. CONCLUSION: 1. Extensive subcutaneous emphysema of the thorax and neck, extensive pneumomediastinum and small rig ht-sided hydropneumothorax noted. 2. Right apical mass and scattered lung nodules are seen. Bebeto Gray MD on June 16, 2016 at 0:57 Board Certified Radiologist. This report was verified electronically.
[2016-06-16] MEDS: CHLORHEXIDINE GLUCONATE 2 % 1 PACK (2 CLOTHS) TOP SCH (02:09)
--- NOTE | 2016-06-16 04:53 | RADRPT ---
EXAM DATE/TIME: 06/16/2016 03:57 [facility] COMPARISON: CT THORAX W/O CONTRAST, June 16, 2016, 0:44. CHEST SINGLE AP, June 15, 2016, 20:23. INDICATIONS : Shortness of breath, possible pulmonary disease. MEDICAL HISTORY : None. SURGICAL HISTORY : None. ENCOUNTER: Subsequent ACUITY: 1 week PAIN SCORE: Non-responsive. LOCATION: Bilateral chest FINDINGS: There is a right-sided pneumothorax seen best at the apex. There is extensive subcutaneous emphysema overlying the chest and neck right greater than left. Pneumomediastinum is present. There is left bas ilar consolidation. There is cardiomegaly and aortic calcification. CONCLUSION: No significant change has occurred. Bebeto Gray MD on June 16, 2016 at 4:50 Board Certified Radiologist. This report was verified electronically.
[2016-06-16 05:01] LABS: HEMATOCRIT 33.3 % (35.0-46.0); LYMPH % 1.4 % (9.0-44.0); LYMPHOCYTE # 0.2 TH/MM3 (1.0-4.8); MEAN CELL VOLUME 78.8 FL (80.0-100.0); MEAN CORPUSCULAR HEMOGLOBIN 25.9 PG (27.0-34.0); MEAN CORPUSCULAR HGB CONC 32.9 % (32.0-36.0); MONO % 2.3 % (0.0-8.0); NEUT % 96.3 % (16.0-70.0); PLATELET COUNT 293 TH/MM3 (150-450); RED BLOOD COUNT 4.23 MIL/MM3 (4.00-5.30); RED CELL DISTRIBUTION WIDTH 14.6 % (11.6-17.2); WHITE BLOOD COUNT 11.4 TH/MM3 (4.0-11.0)
[2016-06-16 05:19] LABS: HEMO FLAGS AUTO DIFF
[2016-06-16 05:52] LABS: ALKALINE PHOSPHATASE 59 U/L (45-117); ALT (GPT) 52 U/L (10-53); ANION GAP 7 MEQ/L (5-15); AST (GOT) 31 U/L (15-37); BICARBONATE 34.6 MEQ/L (21.0-32.0); BLOOD UREA NITROGEN 19 MG/DL (7-18); CHLORIDE 98 MEQ/L (98-107); GLOMERULAR FILTRATION RATE 71 ML/MIN (>89); MAGNESIUM 2.1 MG/DL (1.5-2.5); POTASSIUM 3.8 MEQ/L (3.5-5.1); SODIUM (NA) 140 MEQ/L (136-145); TOTAL BILIRUBIN ADULT 0.3 MG/DL (0.2-1.0)
[2016-06-16] MEDS: LEVOTHYROXINE SODIUM 100 MCG TAB PO SCH (05:53)
[2016-06-16 06:40] LABS: PLATELET ESTIMATE SMEAR NORMAL (NORMAL); PLATELET MORPHOLOGY NORMAL (NORMAL); SCAN/DIFF AUTO DIFF CONFIRMED
[2016-06-16] MEDS: FERROUS SULFATE 325 MG (65 MG ELEMENTAL IRON) TAB PO SCH (09:00)
[2016-06-16] MEDS ORDERED: TIOTROPIUM INH SCH (09:00)
[2016-06-16] MEDS: DOCUSATE SODIUM 100 MG CAP PO SCH ×2 (09:00→21:00)
[2016-06-16] MEDS ORDERED: SODIUM CHLORIDE 0.9% FLUSH 5 ML FLUSH IVF SCH (09:00)
[2016-06-16] MEDS: ROFLUMILAST 500 MCG TAB PO SCH (09:00)
[2016-06-16] MEDS ORDERED: MAGNESIUM 1000 MG PO SCH (09:00)
[2016-06-16] MEDS: ASPIRIN EC 81 MG TABEC PO SCH (09:00)
[2016-06-16] MEDS: SODIUM CHLORIDE 0.9% FLUSH 5 ML FLUSH IV FLUSH SCH ×2 (09:00→21:50)
[2016-06-16] MEDS: amLODIPine BESYLATE 5 MG TAB PO SCH (09:00)
[2016-06-16] MEDS: NIACIN 500 MG EXTENDED RELEASE TAB PO SCH (09:00)
[2016-06-16] MEDS: HYDROCHLOROTHIAZIDE 50 MG TAB PO SCH (09:00)
[2016-06-16] MEDS: PANTOPRAZOLE SOD 20 MG DELAYED RELEASE TAB PO SCH (09:00)
[2016-06-16] MEDS: NYSTATIN SUSP 500,000 U/5 ML CUP SWISH-SWAL SCH ×2 (13:00→21:51)
--- NOTE | 2016-06-16 17:32 | HHI.PR ---
Subjective Remarks Patient seen this morning around 11:30 AM. She reports that shortness of breath is slightly better from admission. Objective Vital Signs Date Time Temp Pulse Resp B/P Pulse Ox O2 Delivery O2 Flow Rate FiO2 06/16/16 16:50 92 06/16/16 15:00 95 06/16/16 14:00 95 06/16/16 12:50 98.6 90 20 129/88 94 06/16/16 12:49 105 06/16/16 09:14 92 Nasal Cannula 2.00 06/16/16 08:00 90 06/16/16 06:00 89 06/16/16 04:00 98.4 96 18 117/56 96 06/16/16 04:00 96 06/16/16 02:00 95 06/16/16 01:07 98.1 102 20 147/70 94 06/16/16 00:26 92 18 137/65 96 Nasal Cannula 3 06/16/16 00:00 105 06/15/16 23:30 98 20 122/74 96 Nasal Cannula 4 06/15/16 22:38 95 Nasal Cannula 2.00 06/15/16 22:20 90 20 110/58 96 Nasal Cannula 4 06/15/16 21:29 108 20 106/55 98 Nasal Cannula 06/15/16 20:20 99 Nasal Cannula 3 06/15/16 20:13 97.5 115 20 98 I/O 06/15/16 06/15/16 06/15/16 06/16/16 06/16/16 06/16/16 07:00 15:00 23:00 07:00 15:00 23:00 Intake Total 1094 ml 1400 ml Output Total 450 ml 1150 ml Balance 644 ml 250 ml Intake Oral 700 ml 850 ml IV Total 394 ml 550 ml Output Urine Total 450 ml 1150 ml # Bowel Movements 0 2 Result Diagram: 06/16/16 0426 06/16/16 042 Objective Remarks GENERAL: Patient sitting up in bed. Appears comfortable. Alert and oriented 3. SKIN: Warm and dry. HEAD: Normocephalic. EYES: No scleral icterus. No injection or drainage. NECK: Supple, trachea midline. No JVD. Subcutaneous emphysema on the right.. CARDIOVASCULAR: Regular rate and rhythm without murmurs, gallops, or rubs. RESPIRATORY: Breath sounds equal bilaterally. No accessory muscle use. Subcutaneous emphysema on the right chest. GASTROINTESTINAL: Abdomen soft, non-tender, nondistended. MUSCULOSKELETAL: No cyanosis, or edema. BACK: Nontender without obvious deformity. No CVA tenderness. A/P Assessment and Plan //Respiratory failure //Underlying COPD //Hydropneumothorax, pneumomediastinum on CT //Right apical mass on CT. - No COPD exacerbation - CT chest 06/15 with hydropneumothorax, pneumomediastinum - Continue Duonebs - Continue home meds - 06/16 Pulmonology consult pending. Cardiothoracic surgery consulted. //Subcutaneous emphysema - Due to above - Consider chest tube - Pulmonary, cardiothoracic surgery consult pending //Hypertension - Hydrochlorothiazide - Norvasc -Continue to monitor blood pressure, adjust medications as necessary. //Hypothyroidism -Continue Levothyroxine ////Hypokalemia - Replacement. Continue Electrolyte ICU protocol //DVT GI prophylaxis - Continue Teds SCDs early aggressive mobilization - Omeprazole Discharge Planning in ICU for treatment of right-sided pneumothorax. PT recommends rehabilitation versus home health at time of discharge. Alexis Rivera MD Jun 16, 2016 17:32
[2016-06-16] MEDS: BUDESONIDE-FORMOTEROL 160/4.5 MCG INHALER INH SCH (21:00)
--- NOTE | 2016-06-16 21:57 | MB ---
cc: KEY BRISENO DATE OF CONSULTATION 06/16/[address] Trejo REASON FOR CONSULTATION Evaluation for pulmonary management. HISTORY OF THE PRESENT ILLNESS Ms. Valverde is a pleasant 71-year-old female from [place] who was visiting over here to her sister. She has history of COPD. She is oxygen-dependent. Also was told that she has a lung density in both lungs and she was being followed by serial CT scans in [place]. She was recently admitted at [facility]. She had a pneumothorax. She had a right chest tube placed. Pneumothorax resolved and the chest tube pulled back two days later. She came to the emergency room with discomfort in the chest, was found to have some subcutaneous emphysema. There was some air leak from the chest wound which was stitched and the patient was sent back. In the night she came back again with worsening of the subcutaneous emphysema. She was admitted to the hospital. She had a chest CT scan done which shows extensive subcutaneous emphysema and pneumomediastinum and small right sided hydropneumothorax. She also has right Lung mass and scattered lung nodules. She is feeling better though she feels some pressure in the chest because of the skin tightness. No wheezing. No fever or chills. She is using oxygen 3-4 liters nasal cannula which is her baseline. PAST MEDICAL HISTORY Significant for: 1. A history of chronic obstructive pulmonary disease. She is oxygen dependent. 2. History of lung nodule for which she was being followed in [place]. 3. Hypertension. 4. History of cancer of the breast status post lumpectomy and 33 radiation treatments and six months of chemotherapy. 5. History of cancer of the cervix. 6. History of hysterectomy. 7. Has a history of pneumothorax in the past. MEDICATIONS She is currently takin. Nystatin swish and swallow. 2. Amlodipine 5 milligrams daily. 3. Aspirin 81 milligrams daily. 4. Hydrochlorothiazide 50 milligrams daily. 5. Daliresp 500 micrograms daily. 6. Symbicort 160/4.5 two puffs twice a day. 7. Ferrous sulfate 325 milligrams daily. 8. Niacin 500 milligrams daily. 9. Protonix 40 milligrams daily. 10. Levothyroxine 100 micrograms daily. 11. Flonase nasal spray. 12. Oxybutynin 5 milligrams q.4h for pain. ALLERGIES SHE IS ALLERGIC TO ADHESIVE TAPE. SOCIAL HISTORY She is a , lives alone. She has history of smoking which she quit in 1993. 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 She has history of smoking which she quit. FAMILY HISTORY She has one daughter. Her son is in [place], coming to get her from here. REVIEW OF SYSTEMS Normally she is up, around and active, uses oxygen all the time. No DVT or pulmonary embolism. No seizure, stroke or epilepsy. PHYSICAL EXAMINATION GENERAL: Well-developed, well-nourished female in no acute distress. VITAL SIGNS: Blood pressure 111/55, heart rate 95, respirations 18, temperature 98.4. HEENT: Pupils are equal and reactive to light. Oral mucosa, nasal mucosa normal. NECK: Supple. JVP not raised. CHEST: She has extensive subcutaneous emphysema extending in to the face and the arms. Good breath sounds bilaterally. CARDIOVASCULAR: S1, S2 normal. ABDOMEN: Benign. EXTREMITIES: No edema. IMPRESSION 1. Extensive subcutaneous emphysema. 2. Pneumomediastinum. 3. Recent pneumothorax status post chest tube removal. 4. Right upper lobe density. 5. Bilateral lung nodules which as per the patient are chronic. F 6. Chronic obstructive pulmonary disease. She is oxygen dependent. 7. Hypertension. 8. Cancer of the breast status post lumpectomy, radiation treatment and chemotherapy. PLAN I discussed with the patient, we will monitor the patient, supplement her oxygen. Repeat cxr in the morning. If there is significant pneumothorax, then she will need a chest tube placement again. She will have followup with her marketing automation manager in [place] to compare the CT scans, if there is any change in size, she may need a biopsy. Further treatment will depend on the course in the hospital. Thank you Dr. Trejo for this consultation. MD RAJNI Malcolm/TEGAN /6:03 PM /9:32 PM HILARIO
[2016-06-17] VITALS (17 sets, daily range): BP systolic 108–139; BP diastolic 54–74; PULSE 72–97; RESP 16–24; TEMP 96.7–98.7; O2SAT 93–98
[2016-06-17] MEDS: CHLORHEXIDINE GLUCONATE 2 % 1 PACK (2 CLOTHS) TOP SCH (04:00)
[2016-06-17] MEDS: LEVOTHYROXINE SODIUM 100 MCG TAB PO SCH (05:16)
[2016-06-17 05:43] LABS: AUTOMATED NEUTROPHIL # 7.3 TH/MM3 (1.8-7.7); BASOPHIL % 0.2 % (0.0-2.0); EOSINOPHIL # 0.5 TH/MM3 (0-0.4); EOSINOPHIL % 5.2 % (0.0-4.0); HEMATOCRIT 31.5 % (35.0-46.0); LYMPHOCYTE # 1.3 TH/MM3 (1.0-4.8); MEAN CELL VOLUME 79.2 FL (80.0-100.0); MEAN CORPUSCULAR HEMOGLOBIN 25.6 PG (27.0-34.0); MEAN CORPUSCULAR HGB CONC 32.3 % (32.0-36.0); MONO % 6.4 % (0.0-8.0); NEUT % 75.2 % (16.0-70.0); PLATELET COUNT 268 TH/MM3 (150-450); RED BLOOD COUNT 3.97 MIL/MM3 (4.00-5.30); RED CELL DISTRIBUTION WIDTH 15.2 % (11.6-17.2); WHITE BLOOD COUNT 9.8 TH/MM3 (4.0-11.0)
[2016-06-17 05:46] LABS: HEMO FLAGS AUTO DIFF
[2016-06-17 05:59] LABS: BICARBONATE 39.6 MEQ/L (21.0-32.0); MAGNESIUM 1.9 MG/DL (1.5-2.5); POTASSIUM 3.3 MEQ/L (3.5-5.1)
[2016-06-17 06:57] LABS: PLATELET ESTIMATE SMEAR NORMAL (NORMAL); PLATELET MORPHOLOGY NORMAL (NORMAL); SCAN/DIFF AUTO DIFF CONFIRMED
[2016-06-17] MEDS: BUDESONIDE-FORMOTEROL 160/4.5 MCG INHALER INH SCH ×2 (09:00→21:00)
[2016-06-17] MEDS: SODIUM CHLORIDE 0.9% FLUSH 5 ML FLUSH IV FLUSH SCH ×2 (09:00→21:22)
[2016-06-17] MEDS: DOCUSATE SODIUM 100 MG CAP PO SCH ×2 (09:00→21:00)
[2016-06-17] MEDS: FERROUS SULFATE 325 MG (65 MG ELEMENTAL IRON) TAB PO SCH (09:16)
[2016-06-17] MEDS: ROFLUMILAST 500 MCG TAB PO SCH ×2 (09:16→09:26)
[2016-06-17] MEDS: amLODIPine BESYLATE 5 MG TAB PO SCH (09:16)
[2016-06-17] MEDS: ASPIRIN EC 81 MG TABEC PO SCH (09:16)
[2016-06-17] MEDS: NIACIN 500 MG EXTENDED RELEASE TAB PO SCH (09:16)
[2016-06-17] MEDS: PANTOPRAZOLE SOD 20 MG DELAYED RELEASE TAB PO SCH (09:16)
[2016-06-17] MEDS: HYDROCHLOROTHIAZIDE 50 MG TAB PO SCH (09:17)
[2016-06-17] MEDS: NYSTATIN SUSP 500,000 U/5 ML CUP SWISH-SWAL SCH ×4 (09:18→21:21)
--- NOTE | 2016-06-17 11:56 | MB ---
cc: YEIMI OSORIO DATE OF CONSULTATION 06/17/2016 REASON FOR CONSULTATION This is a 71-year-old female patient apparently visiting from [place] from [place] visiting her sister. She was recently admitted June 09 for shortness of breath, cold symptoms, developed respiratory distress. They called 9--1. She was emergently intubated and was found to have a large spontaneous pneumothorax. A right-sided chest tube was placed. She was successfully then extubated. They discontinued her chest tube on the . She was discharged on the . She says that after they pulled the chest tube, they placed some Vaseline gauze and she felt air cshneider from her right side chest tube and then came in Thursday morning and had a stitch placed into that right chest tube site and then had a repeat CT chest which showed extensive subcutaneous emphysema of the thorax, extensive mediastinum, small right sided hydropneumothorax and right apical mass scattered lung masses and nodules were seen. The patient has been also seen by Dr. Fields. 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 She has been worked up for a history of histoplasmosis. She has had repeat followup CT's on a serial basis. On her initial admission on the , she also was found to have elevated troponins which may have contributed to her respiratory distress. She had a negative stress test. We were consulted for the subcu emphysema, the pneumomediastinum. PAST MEDICAL HISTORY The patient's past medical history is significant for: 1. Severe COPD on home O2 at 3 liters 2. Hypertension 3. History of right-sided breast cancer 4. Lumpectomy 5. Cervical cancer, the patient had radiation and chemotherapy. PAST SURGICAL HISTORY Include: 1. Right lumpectomy 2. Hysterectomy Again, she uses oxygen at 3 liters at home. ALLERGIES She has no allergies to ADHESIVE TAPE. MEDICATIONS Home medications include: 1. Iron tablets 2. Aspirin 3. Niacin 4. Magnesium 5. Synthroid 6. Hydrochlorothiazide 7. Amlodipine 8. Spiriva 9. Advair FAMILY HISTORY Noncontributory SOCIAL HISTORY The patient is . Quit smoking in 1993. No alcohol. REVIEW OF SYSTEMS GENERAL: No night sweats, fever, heat and cold intolerance. SKIN: No psoriasis, itching or hives. HEENT: No blurred vision or hearing loss. RESPIRATORY: As above in the HPI. CARDIOVASCULAR: No chest pain. No paroxysmal nocturnal dyspnea. No orthopnea. GASTROINTESTINAL: No diarrhea or vomiting. GENITOURINARY: No burning frequency, or urgency. SILVER WRAPPER: No history of TIA, CVA, or seizure disorder. ENDOCRINOLOGY: Positive for hypothyroidism. No diabetes. PHYSICAL EXAM On exam blood pressure 140/70, heart rate of 80, O2 sat 95 on two liters. GENERAL: The patient is awake and alert in no acute distress. HEAD: Normocephalic, atraumatic. EYES: Pupils equal and reactive. EARS, NOSE, AND THROAT: Oral mucosa pink and moist. NECK: Supple. No JVD. HEART: S1-S2 regular rate and rhythm, slightly tachycardiac. LUNGS: Diminished bilaterally right greater than the left. She does have some subcutaneous emphysema on the right posterior chest wall, the right lateral chest wall, the right arm and hand of which is improving as per the patient. ABDOMEN: Soft and nontender. No masses or organomegaly. EXTREMITIES: No cyanosis, clubbing or edema. LABORATORY FINDINGS Shows hemoglobin 10, hematocrit 31, white cell count 9.8, platelet count 268. Sodium 141, potassium 3.3, BUN 20, creatinine 0.86, mag level 1.9, INR 1.0. MRSA screen negative. Blood cultures negative. CT CHEST As above in HPI. 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 The films will be evaluated by Dr. Yeimi Osorio at this time and for any further planning as per Dr. Osorio. Dictated by MAGO Soni I do not recommend chest drain placement unless her subcutaneous emphysema progresses. MD SCOTT Rush/OSCAR /11:11 AM /11:54 AM [facility]
[2016-06-17] MEDS ORDERED: POTASSIUM CHLORIDE 20 MEQ CONTROLLED RELEASE TAB PO ONE (17:30)
--- NOTE | 2016-06-17 17:30 | HHI.PR ---
Subjective Remarks Patient seen today around 1 PM. Sitting up in chair. Says she feels much better. Shortness of breath has improved. she denies any chest pain. Objective Vital Signs Date Time Temp Pulse Resp B/P Pulse Ox O2 Delivery O2 Flow Rate FiO2 06/17/16 16:36 98.0 87 20 108/73 94 06/17/16 16:00 75 06/17/16 14:00 77 06/17/16 12:38 98.5 88 17 131/61 94 06/17/16 12:36 72 06/17/16 10:00 73 06/17/16 08:25 95 Nasal Cannula 2.00 06/17/16 08:00 98.7 90 17 131/74 95 06/17/16 08:00 79 06/17/16 06:00 74 06/17/16 04:00 75 06/17/16 04:00 98.5 75 17 139/73 97 06/17/16 02:00 83 06/17/16 00:00 89 06/17/16 00:00 98.6 89 16 124/58 98 06/16/16 22:00 83 06/16/16 20:00 98.6 96 19 123/56 96 06/16/16 20:00 96 06/16/16 19:31 94 Nasal Cannula 2.00 06/16/16 18:00 96 I/O 06/16/16 06/16/16 06/16/16 06/17/16 06/17/16 06/17/16 07:00 15:00 23:00 07:00 15:00 23:00 Intake Total 1094 ml 1400 ml 300 ml 200 ml 850 ml Output Total 450 ml 1150 ml 600 ml 950 ml 1400 ml Balance 644 ml 250 ml -300 ml -750 ml -550 ml Intake Oral 700 ml 850 ml 300 ml 200 ml 850 ml IV Total 394 ml 550 ml 0 ml Output Urine Total 450 ml 1150 ml 600 ml 950 ml 1400 ml # Voids 2 2 # Bowel Movements 0 2 1 0 1 Result Diagram: 06/17/16 0504 06/17/16 0504 Objective Remarks GENERAL: Patient sitting up in chair.Appears comfortable. Alert and oriented 3. SKIN: Warm and dry. HEAD: Normocephalic. EYES: No scleral icterus. No injection or drainage. NECK: Supple, trachea midline. No JVD. Subcutaneous emphysema on the right still present.. CARDIOVASCULAR: Regular rate and rhythm without murmurs, gallops, or rubs. RESPIRATORY: Breath sounds equal bilaterally. No accessory muscle use. Subcutaneous emphysema on the right chest still present. GASTROINTESTINAL: Abdomen soft, non-tender, nondistended. MUSCULOSKELETAL: No cyanosis, or edema. BACK: Nontender without obvious deformity. No CVA tenderness. A/P Assessment and Plan //Respiratory failure //Underlying COPD //Hydropneumothorax, pneumomediastinum on CT //Right apical mass on CT. - No COPD exacerbation - CT chest 06/15 with hydropneumothorax, pneumomediastinum - Continue Duonebs - Continue home meds -06/17. Pulmonology and cardiothoracic surgery following. Continue to monitor. Appears to be improving. //Subcutaneous emphysema - Due to above - Consider chest tube - Pulmonary, cardiothoracic surgery assistance appreciated. -06/17. Still with subcutaneous emphysema. However pneumothorax appears to be improving. Repeat chest x-ray. //Hypertension - Hydrochlorothiazide - Norvasc -Continue to monitor blood pressure, adjust medications as necessary. //Hypothyroidism -Continue Levothyroxine ////Hypokalemia - Replacement. -06/17. Replace. Monitor. //DVT GI prophylaxis - Continue Teds SCDs early aggressive mobilization - Omeprazole Discharge Planning -Stable for transfer to medical floor. PT recommends rehabilitation versus home health at time of discharge. Appreciate case management assistance. Alexis Rivera MD Jun 17, 2016 17:30
--- NOTE | 2016-06-17 18:31 | RADRPT ---
EXAM DATE/TIME: 06/17/2016 17:59 [facility] COMPARISON: CHEST SINGLE AP, June 16, 2016, 3:57. INDICATIONS : Pneumothorax. MEDICAL HISTORY : None. SURGICAL HISTORY : None. ENCOUNTER: Subsequent ACUITY: 1 week PAIN SCORE: 0/10 LOCATION: Bilateral chest FINDINGS: No definite pneumothorax is seen for technique. Extensive subcutaous emphysema has not changed and th ere is slight pneumomediastinum as well. Left lung base consolidation has not changed. CONCLUSION: No appreciable change. Abdulaziz Jean MD on June 17, 2016 at 18:28 Board Certified Radiologist. This report was verified electronically.
--- NOTE | 2016-06-17 19:15 | HHI.PR ---
Subjective Remarks 71 YOWF with PTX s/p chest tube removal,Pneumomediastinum Feels much better SQ Emphysema decreasing On 3 LNC, sat 95% Family at BS Objective Vital Signs Vital Signs Date Time Temp Pulse Resp B/P Pulse Ox O2 Delivery O2 Flow Rate FiO2 06/17/16 18:02 82 06/17/16 16:36 98.0 87 20 108/73 94 06/17/16 16:00 75 06/17/16 14:00 77 06/17/16 12:38 98.5 88 17 131/61 94 06/17/16 12:36 72 06/17/16 10:00 73 06/17/16 08:25 95 Nasal Cannula 2.00 06/17/16 08:00 98.7 90 17 131/74 95 06/17/16 08:00 79 06/17/16 06:00 74 06/17/16 04:00 75 06/17/16 04:00 98.5 75 17 139/73 97 06/17/16 02:00 83 06/17/16 00:00 89 06/17/16 00:00 98.6 89 16 124/58 98 06/16/16 22:00 83 06/16/16 20:00 98.6 96 19 123/56 96 06/16/16 20:00 96 06/16/16 19:31 94 Nasal Cannula 2.00 I/O 06/16/16 06/16/16 06/16/16 06/17/16 06/17/16 06/17/16 07:00 15:00 23:00 07:00 15:00 23:00 Intake Total 1094 ml 1400 ml 300 ml 200 ml 850 ml Output Total 450 ml 1150 ml 600 ml 950 ml 1400 ml Balance 644 ml 250 ml -300 ml -750 ml -550 ml Intake Oral 700 ml 850 ml 300 ml 200 ml 850 ml IV Total 394 ml 550 ml 0 ml Output Urine Total 450 ml 1150 ml 600 ml 950 ml 1400 ml # Voids 2 2 # Bowel Movements 0 2 1 0 1 Result Diagram: 06/17/16 0504 06/17/16 0504 Objective Remarks GENERAL: WBWN WF, no distress SKIN: Warm and dry. HEAD: Normocephalic. EYES: No scleral icterus. No injection or drainage. NECK: Supple, trachea midline. No JVD or lymphadenopathy. SQ Emphysema CARDIOVASCULAR: Regular rate and rhythm without murmurs, gallops, or rubs. RESPIRATORY: Breath sounds equal bilaterally. No accessory muscle use. GASTROINTESTINAL: Abdomen soft, non-tender, nondistended. MUSCULOSKELETAL: No cyanosis, or edema. BACK: Nontender without obvious deformity. No CVA tenderness. A/P Assessment and Plan Extensive SQ Emphysema improving Pneumomediastinum recent PTX COPD RUL density and lung nodules, chronic per pt H/O ca breast HTN PLAN: Stable on 02 3LNC, she uses 3LNC at home CXR in AM Aerosol nebs Satble to tr to floor Ry Fields MD Jun 17, 2016 19:15
[2016-06-17] MEDS ORDERED: ROFLUMILAST 500 MCG TAB PO SCH (21:00)
[2016-06-18] MEDS: CHLORHEXIDINE GLUCONATE 2 % 1 PACK (2 CLOTHS) TOP SCH (04:00)
[2016-06-18 04:30] LABS: AUTOMATED NEUTROPHIL # 5.6 TH/MM3 (1.8-7.7); BASOPHIL % 0.3 % (0.0-2.0); EOSINOPHIL # 0.2 TH/MM3 (0-0.4); EOSINOPHIL % 2.9 % (0.0-4.0); HEMO FLAGS DIFF FINAL; LYMPH % 17.2 % (9.0-44.0); LYMPHOCYTE # 1.3 TH/MM3 (1.0-4.8); MEAN CELL VOLUME 79.2 FL (80.0-100.0); MEAN CORPUSCULAR HGB CONC 32.8 % (32.0-36.0); MONO % 6.6 % (0.0-8.0); PLATELET COUNT 265 TH/MM3 (150-450); RED BLOOD COUNT 4.04 MIL/MM3 (4.00-5.30); RED CELL DISTRIBUTION WIDTH 15.3 % (11.6-17.2); WHITE BLOOD COUNT 7.7 TH/MM3 (4.0-11.0)
[2016-06-18 04:53] LABS: BICARBONATE 38.5 MEQ/L (21.0-32.0); MAGNESIUM 1.7 MG/DL (1.5-2.5)
[2016-06-18] MEDS: LEVOTHYROXINE SODIUM 100 MCG TAB PO SCH (05:20)
[2016-06-18 08:00] VITALS: BP 119/60; PULSE 83; RESP 19; TEMP 98; O2SAT 96
[2016-06-18] MEDS: NYSTATIN SUSP 500,000 U/5 ML CUP SWISH-SWAL SCH ×2 (08:39→12:06)
[2016-06-18] MEDS: SODIUM CHLORIDE 0.9% FLUSH 5 ML FLUSH IV FLUSH SCH (08:40)
[2016-06-18] MEDS: amLODIPine BESYLATE 5 MG TAB PO SCH (08:40)
[2016-06-18] MEDS: ASPIRIN EC 81 MG TABEC PO SCH (08:40)
[2016-06-18] MEDS: FERROUS SULFATE 325 MG (65 MG ELEMENTAL IRON) TAB PO SCH (08:40)
[2016-06-18] MEDS: PANTOPRAZOLE SOD 20 MG DELAYED RELEASE TAB PO SCH (08:40)
[2016-06-18] MEDS: HYDROCHLOROTHIAZIDE 50 MG TAB PO SCH (08:40)
[2016-06-18] MEDS: DOCUSATE SODIUM 100 MG CAP PO SCH (08:47)
[2016-06-18] MEDS: BUDESONIDE-FORMOTEROL 160/4.5 MCG INHALER INH SCH (09:00)
[2016-06-18] MEDS: NIACIN 500 MG EXTENDED RELEASE TAB PO SCH (10:23)
[2016-06-18 10:37] VITALS: O2SAT 97
[2016-06-18 12:00] VITALS: BP 120/57; PULSE 97; RESP 17; TEMP 97.5; O2SAT 95
--- NOTE | 2016-06-18 13:55 | HHI.PR ---
Subjective Remarks Patient seen today around 11 AM. Patient reports feeling well. Denies any chest pain, reports that shortness of breath is much better. She says she wants to go to her sister's house. She reports walking out of bed with nursing. Objective Vital Signs Date Time Temp Pulse Resp B/P Pulse Ox O2 Delivery O2 Flow Rate FiO2 06/18/16 12:00 97.5 97 17 120/57 95 06/18/16 10:37 97 Nasal Cannula 3.00 06/18/16 08:00 98.0 83 19 119/60 96 06/17/16 23:45 96.7 90 17 130/60 95 06/17/16 22:00 93 06/17/16 20:49 94 Nasal Cannula 2.00 06/17/16 20:00 97 06/17/16 20:00 98.7 97 24 109/54 93 06/17/16 18:02 82 06/17/16 16:36 98.0 87 20 108/73 94 06/17/16 16:00 75 06/17/16 14:00 77 I/O 06/17/16 06/17/16 06/17/16 06/18/16 06/18/16 06/18/16 07:00 15:00 23:00 07:00 15:00 23:00 Intake Total 200 ml 850 ml 500 ml 480 ml 120 ml Output Total 950 ml 1400 ml 750 ml Balance -750 ml -550 ml -250 ml 480 ml 120 ml Intake Oral 200 ml 850 ml 500 ml 480 ml 120 ml IV Total 0 ml Output Urine Total 950 ml 1400 ml 750 ml # Voids 2 4 # Bowel Movements 0 1 0 Result Diagram: 06/18/1640206/18/163 Objective Remarks GENERAL: Patient sitting up in bed. Appears comfortable. Alert and oriented 3. SKIN: Warm and dry. HEAD: Normocephalic. EYES: No scleral icterus. No injection or drainage. NECK: Supple, trachea midline. No JVD. Subcutaneous emphysema on the right still present.. CARDIOVASCULAR: Regular rate and rhythm without murmurs, gallops, or rubs. RESPIRATORY: Breath sounds equal bilaterally. No accessory muscle use. Subcutaneous emphysema on the right chest still present, no change. GASTROINTESTINAL: Abdomen soft, non-tender, nondistended. MUSCULOSKELETAL: No cyanosis, or edema. BACK: Nontender without obvious deformity. No CVA tenderness. A/P Assessment and Plan //Respiratory failure //Underlying COPD //Hydropneumothorax, pneumomediastinum on CT //Right apical mass on CT. - No COPD exacerbation - CT chest 06/15 with hydropneumothorax, pneumomediastinum - Continue Duonebs - Continue home meds -06/17. Pulmonology and cardiothoracic surgery following. Continue to monitor. Appears to be improving. -06/18. Symptoms much improved. Chest x-ray stable. Discussed with in [place]. If no change on chest x-ray and no increase in subcutaneous emphysema, can discharge. We will follow-up with pulmonology as outpatient. //Subcutaneous emphysema - Due to above - Consider chest tube - Pulmonary, cardiothoracic surgery assistance appreciated. -06/17. Still with subcutaneous emphysema. However pneumothorax appears to be improving. Repeat chest x-ray. //Hypertension - Hydrochlorothiazide - Norvasc -Continue to monitor blood pressure, adjust medications as necessary. //Hypothyroidism -Continue Levothyroxine ////Hypokalemia - Replacement. -06/17. Replace. Monitor. -Ray/. Resolved after replacement. //DVT GI prophylaxis - Continue Teds SCDs early aggressive mobilization - Omeprazole Discharge Planning -Discharge home with home health. Patient refuses SNF. - Appreciate case management assistance. Alexis Rivera MD Jun 18, 2016 13:55
--- NOTE | 2016-06-18 14:03 | HHI.FF ---
Face to Face Verification Diagnosis: (1) Pneumothorax, right (2) Shortness of breath (3) COPD with exacerbation Physical Therapy Order: Evaluate and Treat Home Health Nursing Order: Wound care and dressing changes Nursing assessment with vital signs I have seen patient Lucila Valverde on 06/18/16. My clinical findings support the need for the requested home health care services because: Deconditioned w/ increased weakness I certify that my clinical findings support that this patient is homebound because: Unsafe to leave home unassisted Alexis Rivera MD Jun 18, 2016 14:03
--- NOTE | 2016-06-18 14:17 | HHI.DS ---
Discharge Summary Admission Date Jun 15, 2016 at 22:32 Discharge Date: Jun 18, 2016 Admitting Diagnosis R 4 mm pneumothorax/pneumomediastinum; LLL infiltrate; COPD (1) Pneumothorax, right ICD Code: J93.9 (2) COPD (chronic obstructive pulmonary disease) ICD Code: J44.9 Procedures No invasive procedures performed. Brief History - From Admission 71-year-old female just discharged from the hospital yesterday 06/14/16 after being admitted 06/09/16 with acute respiratory failure exacerbation COPD and spontaneous right-sided pneumothorax. Patient was seen earlier today 06/15/16 for possible air leak and had sutures placed at site of previous chest tube. She presents to the emergency department by EMS transport from home for evaluation of increasing shortness of breath. CBC/BMP: 06/18/16 0403 06/18/16 0403 Significant Findings Laboratory Tests Test 06/15/16 06/16/16 06/17/16 06/18/16 20:30 04:26 05:04 04:03 White Blood Count 11.7 TH/MM3 11.4 TH/MM3 (4.0-11.0) (4.0-11.0) Mean Corpuscular Volume 79.3 FL 78.8 FL 79.2 FL 79.2 FL (80.0-100.0) (80.0-100.0) (80.0-100.0) (80.0-100.0) Mean Corpuscular Hemoglobin 25.9 PG 25.9 PG 25.6 PG 26.0 PG (27.0-34.0) (27.0-34.0) (27.0-34.0) (27.0-34.0) Neutrophils (%) (Auto) 84.7 % 96.3 % 75.2 % 73.0 % (16.0-70.0) (16.0-70.0) (16.0-70.0) (16.0-70.0) Neutrophils # (Auto) 9.9 TH/MM3 11.0 TH/MM3 (1.8-7.7) (1.8-7.7) Neutrophils % (Manual) 81 % (16-70) Neutrophils # (Manual) 10.3 TH/MM3 (1.8-7.7) Toxic Vacuolation PRESENT (NONE SEEN) Activated Partial 22.0 SEC Thromboplast Time (24.3-30.1) Potassium Level 3.3 MEQ/L 3.3 MEQ/L (3.5-5.1) (3.5-5.1) Chloride Level 94 MEQ/L 97 MEQ/L (98-107) (98-107) Carbon Dioxide Level 35.1 MEQ/L 34.6 MEQ/L 39.6 MEQ/L 38.5 MEQ/L (21.0-32.0) (21.0-32.0) (21.0-32.0) (21.0-32.0) Blood Urea Nitrogen 19 MG/DL (7-18) 19 MG/DL (7-18) 20 MG/DL (7-18) Estimat Glomerular Filtration 59 ML/MIN (>89) 71 ML/MIN (>89) 65 ML/MIN (>89) 82 ML/MIN (>89) Rate Calcium Level 8.2 MG/DL 8.3 MG/DL 8.0 MG/DL (8.5-10.1) (8.5-10.1) (8.5-10.1) Hemoglobin 11.0 GM/DL 10.1 GM/DL 10.5 GM/DL (11.6-15.3) (11.6-15.3) (11.6-15.3) Hematocrit 33.3 % 31.5 % 32.0 % (35.0-46.0) (35.0-46.0) (35.0-46.0) Lymphocytes (%) (Auto) 1.4 % (9.0-44.0) Lymphocytes # (Auto) 0.2 TH/MM3 (1.0-4.8) Random Glucose 129 MG/DL (74-106) Phosphorus Level 5.7 MG/DL (2.5-4.9) Albumin 2.9 GM/DL 2.5 GM/DL 2.6 GM/DL (3.4-5.0) (3.4-5.0) (3.4-5.0) Red Blood Count 3.97 MIL/MM3 (4.00-5.30) Eosinophils (%) (Auto) 5.2 % (0.0-4.0) Eosinophils # (Auto) 0.5 TH/MM3 (0-0.4) Anion Gap 4 MEQ/L (5-15) Imaging Last Impressions Chest X-Ray 06/17/16 0000 Signed Impressions: Service Date/Time: Friday, June 17, 2016 17:59 - CONCLUSION: No appreciable change. Abdulaziz Jean MD Chest CT 06/15/16 0000 Signed Impressions: Service Date/Time: Thursday, June 16, 2016 00:44 - CONCLUSION: 1. Extensive subcutaneous emphysema of the thorax and neck, extensive pneumomediastinum and small right-sided hydropneumothorax noted. 2. Right apical mass and scattered lung nodules are seen. Bebeto Gray MD Hospital Course Shouldn't found to have right-sided pneumothorax has on CT above. As well as extensive subcutaneous emphysema. He shouldn't was given oxygen, DuoNeb nebs, monitor closely in ICU. Shortness of breath, initially quite severe, improved greatly. Chest x-rays stable, subcutaneous emphysema did not worsen. Patient was discharged home with home health. She'll need to follow-up with pulmonology for further monitoring of pneumothorax as well as right apical mass on CT. Discussed with patient the importance of close follow-up. She conveys understanding. //Respiratory failure //Underlying COPD //Hydropneumothorax, pneumomediastinum on CT //Right apical mass on CT. - No COPD exacerbation - CT chest 06/15 with hydropneumothorax, pneumomediastinum - Continue Duonebs - Continue home meds -06/17. Pulmonology and cardiothoracic surgery following. Continue to monitor. Appears to be improving. -06/18. Symptoms much improved. Chest x-ray stable. Discussed with Dr. denis Fields. If no change on chest x-ray and no increase in subcutaneous emphysema, can discharge. We will follow-up with pulmonology as outpatient. //Subcutaneous emphysema - Due to above - Consider chest tube - Pulmonary, cardiothoracic surgery assistance appreciated. -06/17. Still with subcutaneous emphysema. However pneumothorax appears to be improving. Repeat chest x-ray. //Hypertension - Hydrochlorothiazide - Norvasc -Continue to monitor blood pressure, adjust medications as necessary. //Hypothyroidism -Continue Levothyroxine ////Hypokalemia - Replacement. -06/17. Replace. Monitor. -. Resolved after replacement. //DVT GI prophylaxis - Continue Teds SCDs early aggressive mobilization - Omeprazole Discharge Planning -Discharge home with home health. Patient refuses SNF. - Appreciate case management assistance. Pt Condition on Discharge: Good Discharge Disposition: Disch w/ Home Health Serv Discharge Time: <= 30 minutes Discharge Instructions DIET: Follow Instructions for: Heart Healthy Diet Activities you can perform: Regular-No Restrictions Other Activity Instructions: no flying. Follow up Referrals: PCP Follow-up - 3-5 Days Pulmonology - 3-5 Days with Ry Fields MD Continued Medications: Amlodipine (Amlodipine) 5 Mg Tab 5 MG PO DAILY Blood Pressure Management #[address] Ref [address] (Aspirin 81) 81 Mg Tabdr 81 MG PO DAILY Ref 0 TAB Clobetasol Topical (Clobetasol Topical) 0.05% Cream 1 APPLIC TOPICAL BID PRN RASH #15 Ref 0 GM Cyanocobalamin (B12) 1,000 Mcg Tab 1 TAB PO BID Ferrous Sulfate (Iron) 28 Mg Tab 1 TAB PO DAILY Fluticasone-Salmeterol Inh (Advair Diskus Inh) 250-50 Mcg/Blist Aer 2 PUFF INH BID Rinse mouth after use. #1 Ref 0 INHALER Hydrochlorothiazide (Hydrochlorothiazide) 50 Mg Tab 50 MG PO DAILY #60 Ref 0 TAB Levothyroxine (Synthroid) 100 Mcg Tab 100 MCG PO DAILY Thyroid #30 Ref 0 TAB Magnesium (Magnesium) 500 Mg Tab 1000 MG PO DAILY Nutritional Supplement Ref 0 TAB Mometasone Nasal Libby (Nasonex Nasal Libby) 50 Mcg/Act Naspr 2 SPRAY EACH NARE DAILY PRN NASAL CONGESTION AND/OR COUGH #1 Ref 0 BOTTLE Naphazoline W/ Pheniramine (Opcon-A 0.027-0.315 %) 1 Laura Laura PRN DRY EYE Niacin (Niacin) 500 Mg Tab 500 MG PO DAILY Cholesterol Management #30 Ref 0 TAB Omeprazole (Omeprazole) 20 Mg Tab 20 MG PO DAILY #30 Ref 0 TAB Oxycodone (Oxycodone) 5 Mg Tab 5 MG PO Q4H PRN pain 1-7 #7 TAB Roflumilast (Daliresp) 500 Mcg Tab 500 MCG PO DAILY COPD #30 Ref 0 TAB Tiotropium Inh (Spiriva Respimat Inh) 2.5 Mcg/Act Aero 2 PUFF INH DAILY 2.5 mcg = 1 inhalation COPD #1 Ref 0 INHALER Discontinued Medications: Methylprednisolone Dosepak (Medrol Dosepak) 4 Mg Dspk 4 MG PO DIRECTED Per Pharmacist direction #1 Ref 0 DSPK Alexis Rievra MD Jun 18, 2016 14:17
== END 2016-06-18 16:43 | disposition home health service (06) | DRG 919 ==
LOC: NEPC 20:12 → NEDA 22:32 → HIMN 06-16 01:00 → N07A 06-17 23:46
PROVIDERS: ADMIT Internal Medicine; ATTEND Internal Medicine
DX: T81.82XA Emphysema (subcutaneous) resulting from a procedure, initial encounter (principal); J96.90 Respiratory failure, unspecified, unspecified whether with hypoxia or hypercapnia; J93.9 Pneumothorax, unspecified; J94.8 Other specified pleural conditions; J98.2 Interstitial emphysema; J44.9 Chronic obstructive pulmonary disease, unspecified; Z99.81 Dependence on supplemental oxygen; E87.6 Hypokalemia; I10 Essential (primary) hypertension; E03.9 Hypothyroidism, unspecified; R91.1 Solitary pulmonary nodule; Z85.3 Personal history of malignant neoplasm of breast; Z92.21 Personal history of antineoplastic chemotherapy; Z92.3 Personal history of irradiation; Z85.41 Personal history of malignant neoplasm of cervix uteri; Z87.891 Personal history of nicotine dependence; E66.9 Obesity, unspecified; Z68.32 Body mass index [BMI] 32.0-32.9, adult; T81.89XA Other complications of procedures, not elsewhere classified, initial encounter; Y83.8 Other surgical procedures as the cause of abnormal reaction of the patient, or of later complication, without mention of misadventure at the time of the procedure; Y92.239 Unspecified place in hospital as the place of occurrence of the external cause
CPT/HCPCS: 12001; 71010; 71020; 71250; 80048; 80053; 80069; 83605; 83735; 84100; 85007; 85025; 85027; 85610; 85730; 87040; 87641; 93005; J0692; J3370; J7030; J7050